=== PATIENT | male | born 1960 | race Caucasian/White ===

== ENCOUNTER → 2016-12-23 | Day surgery (SDC) | payer OTHER ==
--- NOTE | 2016-12-07 10:16 | PAT Medication Instructions ---
Service Date Dec 07, 2016. 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 Instructions For Your Scheduled Surgery Clopidogrel (Plavix), 75 MG PO QPM (hold 7 days prior to surgery per surgeon instructions- patient will check with family doctor that this is okay) Nitroglycerin [employer] 1 DOSE SL UD PRN for RN (if needed) - Hold the following medications 2 weeks prior to surgery: Fish Oil ([place]-3), 1 CAP PO BID - Hold the following medications 48 hours prior to surgery: Metformin Hcl (Glucophage), 1,000 MG PO BID - Hold the following medications the morning of surgery: Multivitamin (Multivitamin), 1 TAB PO QAM Lisinopril (Zestril), 40 MG PO QAM Glimepiride (Amaryl), 4 MG PO BID Cholecalciferol (Vitamin D3), 1 CAP PO QAM Diclofenac Sod (Voltaren), 50 MG PO TID PRN for RN (not told to stop by surgeon) Ibuprofen (Advil), 800 MG PO PRN (not told to stop by surgeon) - Take the following medications the morning of surgery with a sip of water: Atorvastatin (Lipitor), 40 MG PO QAM Aspirin (Aspirin Ec), 81 MG PO QAM - Take the following medications as scheduled the night before surgery: Omeprazole (Prilosec), 20 MG PO QPM Glimepiride (Amaryl), 4 MG PO BID Atenolol (Tenormin), 50 MG PO QPM If you have any questions please call us at [phone] or [phone] ( [place]) or [phone]
[2016-12-07 10:50] LABS: INR 1.1 (0.9-1.1); PARTIAL THROMBOPLASTIN RATIO 0.9; PROTHROMBIN TIME (PATIENT) 11.7 SECONDS (9.0-12.0)
[2016-12-07 11:02] LABS: BASO % 0.8 %; BASO ABS # 0.03 K/uL (0-0.2); COMPLETE YES; HEMATOCRIT 38.4 % (42-52); IG% 0.3 %; LYMPH % 26.8 %; LYMPH ABS # 1.03 K/uL (1.2-3.4); MEAN CELL VOLUME 86.5 fL (80-100); MEAN CORPUSCULAR HEMOGLOBIN 28.6 pg (25-34); MEAN CORPUSCULAR HGB CONC 33.1 g/dl (32-36); MEAN PLATELET VOLUME 10.8 fL (7.4-10.4); NEUT % 58.1 %; PLATELET COUNT 86 K/uL (130-400); PLT ESTIMATE DECREASED; RED BLOOD COUNT 4.44 M/uL (4.7-6.1); WHITE BLOOD COUNT 3.85 K/uL (4.8-10.8)
[2016-12-07 11:23] LABS: BUN/CREATININE RATIO 14.9 (10-20); CALCIUM 9.4 mg/dl (8.5-10.1); CREATININE 0.65 mg/dl (0.60-1.40); POTASSIUM 4.4 mmol/L (3.5-5.1)
--- NOTE | 2016-12-07 11:48 | DIAGNOSTIC IMAGING REPORT ---
CHEST 2 VIEWS ROUTINE CLINICAL HISTORY: Preoperative chest COMPARISON STUDY: No previous studies for comparison. FINDINGS: The heart is mildly enlarged. There is no failure. There is no focal pulmonary consolidation. There are no pleural effusions.[ IMPRESSION: Mild cardiomegaly. No acute findings. Electronically signed by: Severino Alexis M.D. 12/07/2016 11:46 AM Dictated Date/Time: 12/07/2016 11:46 AM
--- NOTE | 2016-12-22 19:38 | HISTORY & PHYSICAL EXAMINATION ---
DATE OF ADMISSION: 12/23/2016 HISTORY AND PHYSICAL ADMISSION NOTE CHIEF COMPLAINT: Severe calcific tendinitis of the right shoulder. 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 He did have an ultrasound and was told there were no rotator cuff tears, but does have continued pain and discomfort. After failing extensive conservative treatment, he has elected to undergo arthroscopy. PAST MEDICAL HISTORY: Significant for heart disease, non-insulin dependent diabetes, hyperlipidemia, hypertension and ulcers. PAST SURGICAL HISTORY: Significant for heart stents. ALLERGIES: IV DYE. MEDICATIONS: Include metformin 1000 mg twice a day, glimepiride 4 mg twice a day, lisinopril 40 mg daily, atorvastatin 40 mg daily, omeprazole 20 mg daily, Plavix 75 mg daily, atenolol 50 mg daily, baby aspirin 81 mg daily. FAMILY HISTORY: Noncontributory. SOCIAL HISTORY: The patient is , 2 children, 1-2 drinks a day and is moderately active. REVIEW OF SYSTEMS: The patient complains of right shoulder pain. All other pertinent review of systems are negative. PHYSICAL EXAMINATION: GENERAL: He is awake, alert and oriented x3. He is in no apparent distress. He is very pleasant. HEENT: Pupils are equal, round and reactive to light. Extraocular motion intact. Oral mucosa is pink and moist. VITAL SIGNS: Regular rate per radial pulse. LUNGS: Karol symmetrically bilaterally with no audible breath sounds. ABDOMEN: Soft, nontender, nondistended. MUSCULOSKELETAL: On physical examination of his right shoulder, he has decreased active range of motion mostly secondary to pain. He can forward flex about 80 degrees and abduct to 60 degrees. While lying supine he has very limited motion. There are no true signs of adhesive capsulitis and then points are soft and he has extreme pain throughout motion. He has significant tenderness to palpation over the subacromial space, over the AC joint and over the biceps tendon. IMAGING: X-[facility] from [facility] do show 2 areas of calcific tendinitis appeared to be in the area of the infra and supraspinatus, there is mild AC joint arthritis. Ultrasound report of the shoulder does show no signs of rotator cuff tears. It did show the areas of calcific tendonitis. IMPRESSION: Calcific tendonitis of the right shoulder with acromioclavicular joint arthritis and biceps tendonitis. PLAN: Will proceed with a right shoulder arthroscopy to include decompression, distal clavicle resection and biceps tenodesis. Postoperatively, he will be placed in an arm sling and discharged to home on oral pain medications. BERTIN
[~2016-12-23] VITALS: Ht 170.2 cm; Wt 87.0 kg
[~2016-12-23] MED LIST: ACETAMINOPHEN 500 MG TAB PO SCH; ASPI81TA28 PO; ATEN50TA8 PO; ATOR-24 PO; ATROPINE SULFATE 0.1 MG/ML 5ML SYR IV PRN; CEFAZOLIN 2000 MG/60 ML D5W 60 ML IV SCH; CHOL2000 PO; CLOP1TAB15 PO; DEXAMETHASONE SOD INJ 4 MG/ML VIAL ONE; EpHEDrine SULFATE 50MG/5ML SYR ONE; EpHEDrine SULFATE INJ 50 MG/ML AMP IV PRN; FAMOTIDINE 20 MG TAB PO SCH; FENTANYL CITRATE INJ 50 MCG/1 ML 2 ML VIAL IV PRN; FENTANYL CITRATE INJ 50 MCG/1 ML 2 ML VIAL ONE; GABAPENTIN 300 MG CAP PO SCH; GLIM4TAB PO; HYDROmorphone INJ 1 MG/ML SYR IV PRN; IBUP-1050 PO; LACTATED RINGER'S 1000ML 1,000 ML IV SCH; LACTATED RINGER'S 1000ML IV SCH; LARYING-O-JET KIT (LTA) EXT ONE; LIDOCAINE HCL 2% 2 ML VIAL (20MG/ML) ONE; LISI40TA PO; METF-384 PO; MIDAZOLAM HCL 1 MG/ML 2ML VIAL ONE; MULT-506 PO; NITROGLYCERIN SPRAY SL; OMEG10007 PO; ONDANSETRON INJ 2 MG/ML 2 ML VIAL IV PRN; ONDANSETRON INJ 2 MG/ML 2 ML VIAL ONE; OXYC-57 PO; OXYCODONE/ACETAMINOPHEN 5-325 TAB PO PRN; PRLSR20 PO; PROPOFOL IV EMULSION 10 MG/ML 20 ML VIAL IV ONE; ROCURONIUM BROMIDE 10 MG/ML 5 ML VIAL ONE; ROPIVACAINE 0.5% 5 MG/ML 30 ML VIAL ONE; SODIUM CHLORIDE 0.9% 1000ML 1,000 ML IV SCH; SUCCINYLCHOLINE CHLORIDE 20 MG/ML 10 ML VIAL IV ONE; VLT/50 PO
[2016-12-23 10:34] VITALS: BP 150/101; PULSE 75; TEMP 36.4; O2SAT 98; Ht 170.2 cm; Wt 87.0 kg
[2016-12-23 11:03] LABS: HEMATOCRIT 37.1 % (42-52); MEAN CELL VOLUME 84.7 fL (80-100); MEAN CORPUSCULAR HEMOGLOBIN 28.3 pg (25-34); RED BLOOD COUNT 4.38 M/uL (4.7-6.1); WHITE BLOOD COUNT 3.82 K/uL (4.8-10.8)
[2016-12-23 11:09] LABS: MEAN CORPUSCULAR HGB CONC 33.4 g/dl (32-36); MEAN PLATELET VOLUME 10.9 fL (7.4-10.4); PLATELET COUNT 78 K/uL (130-400)
--- NOTE | 2016-12-23 11:52 | History & Physical Bridge Note ---
H&P Re-Evaluation Bridge Note: I have examined the patient, reviewed the History & Physical and in the interval since the performance of the History & Physical I have noted the following changes of clinical significance: No changes noted
--- NOTE | 2016-12-23 14:45 | Discharge Instructions ---
Discharge Instructions Admission Reason for Admission: Right Shoulder Pain, Calcific Tendonitis Discharge Discharge Diagnosis / Problem: SAME ABOVE Discharge Goals Goal(s): Decrease discomfort, Improve function Activity Recommendations Activity Limitations: as noted below Lifting Limitations: until after follow-up appointment Exercise/Sports Limitations: until after follow-up appointment Shower/Bathe: tomorrow . Instructions / Follow-Up Instructions / Follow-Up MEDICATIONS: * Resume previous medications unless instructed otherwise by your surgeon. * Always take pain medication on a full stomach or with food to avoid upset stomach. * Do not drink alcohol or drive while taking narcotics. * Ibuprofen or Tylenol may be taken if narcotic not needed. SPECIAL CARE INSTRUCTIONS: __ None _X_ Keep extremity elevated and iced x 48 hours; apply ice 20-30 minutes 8-10 times/day. May remove at night. _X_ Sling (WEAR NEEDED FOR COMFORT) __24 hrs/day __ Remove at night __ Shoulder Immobilizer __ 24 hrs/day __ Remove at night _X_ Dressing __ Maintain until seen in office, may shower with plastic over site _X_ Remove dressings in 24-48 hours and then may shower _X_ Cover incisions with band-aids after showering _X_ Do not remove steri-strips (THEY MAY FALL OFF ON THEIR OWN) Call physician if chills or temperature rises above 102 degrees or pain unrelieved by prescribed pain medications at . . Current Hospital Diet Patient's current hospital diet: Discharge Diet Recommended Diet: Regular Diet Fluid Restriction: None Procedures Procedures Performed: Right Shoulder Arthroscopy, Extensive Debridement Distal Clavicle Resection, Open Biceps Tenodesis Pending Studies Studies pending at discharge: no Work Instructions Return To Work: after follow-up Lifting Limitations: NO LIFTING MORE THAN 5 POUNDS WITH RIGHT ARM Medical Emergencies . Who to Call and When: Medical Emergencies: If at any time you feel your situation is an emergency, please call 911 immediately. . Non-Emergent Contact Non-Emergency issues call your: Primary Care Provider Call Non-Emergent contact if: you have a fever, temperature is above 101.5 . "Provider Documentation" section prepared by Daniel Cantu. VTE Core Measure Inpt VTE Proph given/why not?: Treatment not indicated
--- NOTE | 2016-12-23 15:18 | Anesthesiology Progress Note ---
Anesthesia Post Op Note Date & Time Dec 23, 2016 at 15:17 Vital Signs Pain Intensity: 0 Vital Signs Past 12 Hours Date Time Temp Pulse Resp B/P Pulse Ox O2 Delivery O2 Flow Rate FiO2 12/23/16 15:05 81 16 159/95 99 Mask 10 12/23/16 14:55 83 20 153/97 98 Mask 10 12/23/16 14:45 36.0 80 16 144/92 99 Mask 10 12/23/16 10:34 36.4 75 20 150/101 98 Room Air Notes Mental Status: alert / awake / arousable, participated in evaluation Pt Amnestic to Procedure: Yes Nausea / Vomiting: adequately controlled Pain: adequately controlled Airway Patency, RR, SpO2: stable & adequate BP & HR: stable & adequate Hydration State: stable & adequate Anesthetic Complications: no major complications apparent
[2016-12-23 15:30] VITALS: BP 144/99; PULSE 85; TEMP 36.5; O2SAT 94
--- NOTE | 2016-12-23 15:50 | [facility] Post Operative Brief Note ---
Immediate Operative Summary Operative Date Dec 23, 2016. Pre-Operative Diagnosis Calcific tendonitis of the right shoulder with acromioclavicular joint arthritis and biceps tendonitis Post-Operative Diagnosis Calcific tendonitis of the right shoulder with acromioclavicular joint arthritis and biceps tendonitis Procedure(s) Performed Right Shoulder Arthroscopy, Extensive Debridement, Distal Clavicle Resection, Open Biceps Tenodesis, Achromoplasty Surgeon Dr. Otis Sawyer Blindstitch Lining Feller Surgeon(s) Daniel Cantu PA-C Estimated Blood Loss 10mL Findings as above Specimens None per surgeon Complication(s) None Disposition Recovery Room / PACU
[2016-12-23 16:00] VITALS: BP 147/91; PULSE 90; O2SAT 94
[2016-12-23 16:30] VITALS: BP 141/86; PULSE 90; TEMP 36.6; O2SAT 95
--- NOTE | 2016-12-23 16:32 | OPERATIVE REPORT ---
DATE OF OPERATION: 12/23/2016 PREOPERATIVE DIAGNOSES: Severe external impingement, acromioclavicular joint arthritis, calcific tendinitis, and biceps tendinopathy of the right shoulder. POSTOPERATIVE DIAGNOSES: Same. PROCEDURE: Right shoulder diagnostic arthroscopy with extensive debridement including removal of the calcific tendinitis, distal clavicle resection, acromioplasty, and open subpectoral biceps tenodesis. SURGEON: Dr. Otis Sawyer. REPAIRER ART OBJECTS: Nato Cantu PA-C, whose assistance was necessary for positioning the arm and helping with instrumentation. ANESTHESIA: General with a right interscalene nerve block. COMPLICATIONS: None. CONDITION: Stable to PACU. 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 He denies any shoulder pain until the incident. He is unable to get an MRI or CAT scan, so he got an ultrasound which was negative for cuff tear but did show calcific tendinitis. It also showed some external impingement and some biceps tendinopathy. After failing conservative treatment, he elected to undergo arthroscopy. DESCRIPTION OF PROCEDURE: On 12/23/2016, he arrived at [facility] for the above procedure. He was seen in the preoperative holding area and the operative extremity was identified and signed. He was given a preoperative antibiotic and a right interscalene nerve block. He was taken back to the operating room, laid on the table in supine position and put under general anesthesia. He was then put into the beach chair position. The right shoulder was prepped and draped in sterile fashion. Time-out was done and the patient and operative extremity was properly identified. A scope was introduced in the posterior portal. Diagnostic arthroscopy showed no cartilage damage to the humeral head or the glenoid. The biceps tendon was mostly intact and went through an enlarged biceps pacheco mechanism. The supraspinatus, infraspinatus, teres minor and subscapularis were all checked and intact. An anterior portal was made. A shaver was used to do a limited debridement of the intraarticular structures and the biceps tendon was arthroscopically tenotomized. The scope was then put into the subacromial space. A lateral portal was made. A shaver was used to do a complete subacromial and subdeltoid bursectomy. An ablator was used to tease the coracoacromial ligament off the undersurface of the acromion and a 5-0 concetta was used to complete an acromioplasty of a large [place] type 3 acromion. A shaver was used to remove any excess debris and the bursal side of the rotator cuff was examined and there was evidence of a large area of calcific tendonitis. An additional anterolateral portal was made and a shaver was used to complete an extensive debridement by excising the calcific tendinitis. Multiple pictures were taken. Care was taken to ensure all of the calcific tendonitis was removed. Final diagnostic arthroscopy showed no additional pathology. Attention was then turned to the distal clavicle. Through the anterior portal, a shaver and ablator were used to skeletonize the distal clavicle and a 5-0 concetta was then used to resect the distal 5 mm from the clavicle. Complete resection was checked under direct visualization. Arthroscopic instruments were removed from the shoulder. Attention was turned to an open biceps tenodesis. A small incision was made over the inferior border of the pec major. Dissection was taken down through the fascia and the long head of the biceps tendon was delivered out of the wound. The tendon was then whip stitched at the anticipated level of tenodesis and the remainder of the tendon was discarded. A 5 mm hole was drilled in the bicipital groove and the biceps tendon was tenodesed with an Arthrex biceps button that was passed through the posterior cortex in a tension slide technique to deliver the tendon into the 5 mm hole. This gave good fixation. The wound was then irrigated and closed with 3-0 Vicryl and running 3-0 Monocryl. Steri-strips were placed. Portal sites were closed with 3-0 nylon. He was then placed in a soft dressing and regular arm sling. He was then extubated, transferred to a litter and taken to the postanesthesia care unit in stable condition and he tolerated the procedure well. I attest to the content of the Intraoperative Record and any orders documented therein. Any exceptio ns are noted below.
== END | disposition home or self-care (01) ==
LOC: C.ACU 10:15
PROVIDERS: ATTEND Orthopaedic Surgery
DX: M75.41 Impingement syndrome of right shoulder (principal); M75.31 Calcific tendinitis of right shoulder; M75.21 Bicipital tendinitis, right shoulder; M19.019 Primary osteoarthritis, unspecified shoulder; E11.9 Type 2 diabetes mellitus without complications; E78.5 Hyperlipidemia, unspecified

== ENCOUNTER 2019-06-25 13:36 | Inpatient (IN) ==
[2019-06-25] MEDS ORDERED: GLUCOSE 10 TABS/TUBE PO PRN (15:16)
[2019-06-25] MEDS ORDERED: GLUCAGON FOR INJ 1 MG VIAL SQ PRN (15:16)
[2019-06-25] MEDS ORDERED: GLUCOSE 40% GEL 15 GM TUBE PO PRN (15:16)
[2019-06-25] MEDS ORDERED: CARBOHYDRATES FOR HYPOGLYCEMIA PO PRN (15:16)
[2019-06-25] MEDS ORDERED: DEXTROSE 50% 50 ML SYRINGE IV PRN (15:16)
[2019-06-25 15:17] LABS: Basophils # (auto) 0.05 K/uL (0-0.2); Basophils % (auto) 1.3 %; Eosinophils # (auto) 0.09 K/uL (0-0.5); Eosinophils % (auto) 2.3 %; Hematocrit (blood only) 32.7 % (42-52); Hemoglobin 10.7 g/dL (14.0-18.0); Immature Granulocytes # (auto) 0.01 K/uL (0.00-0.02); Immature Granulocytes % (auto) 0.3 %; Lymphocytes # (auto) 0.83 K/uL (1.2-3.4); Lymphocytes % (auto) 21.3 %; Mean Corpuscular Hgb Conc 32.7 g/dL (32-36); Mean Corpuscular Volume 83.6 fL (80-100); Mean Platelet Volume 10.4 fL (7.4-10.4); Monocytes # (auto) 0.67 K/uL (0.11-0.59); Monocytes % (auto) 17.2 %; Neutrophils # (auto) 2.25 K/uL (1.4-6.5); Neutrophils % (auto) 57.6 %; Platelet Count 103 K/uL (130-400); RDW Coefficient of Variation 15.6 % (11.5-14.5); RDW Standard Deviation 47.7 fL (36.4-46.3); Red Blood Count 3.91 M/uL (4.7-6.1)
[2019-06-25] MEDS: cefTRIAXone SODIUM 2,000 MG in DEXTROSE 5% 50 ML IV SCH (15:28)
[2019-06-25 15:34] LABS: Albumin Level 3.5 gm/dl (3.4-5.0); BUN Creatinine Ratio 19.4 (10-20); Calcium 8.8 mg/dl (8.5-10.1); Creatinine Clr Calc Pharmacy 54.4 ml/min; Est GFR (African American) 63.5; Est GFR (Non-African American) 54.8; Potassium 3.9 mmol/L (3.5-5.1)
[2019-06-25 15:36] LABS: Albumin Globulin Ratio 0.7 (0.9-2); Bilirubin,Total 0.9 mg/dl (0.2-1); Total Protein 8.5 gm/dl (6.4-8.2)
[2019-06-25 15:44] LABS: Platelet Estimate Decreased (Normal)
--- NOTE | 2019-06-25 16:25 | History & Physical Report ---
Date of Service June 25, 2019 Assessment & Plan (1) Alcoholic cirrhosis of liver with ascites: -Admit to [facility] with telemetry -Patient sent from the GI office for evaluation of abdominal pain and nausea/vomiting; underwent paracentesis on 05/28 that was equivocal for infection -Concern for possible SBP -Patient currently hemodynamic Oli stable, afebrile, no leukocytosis -Patient declining repeat paracentesis at this time -will start ceftriaxone 2 g IV daily -Repeat ultrasound -Continue home dose of spironolactone; furosemide recently discontinued by PCP for orthostasis -continue to monitor orthostatic BPs, consider resumption of furosemide and down titration of JUNE inhibitor -GI consult, case discussed with Denisse Mena PA-C (2) CAD (coronary artery disease): -Appears stable, no reports of chest pain -Continue aspirin, statin, beta-nj, JUNE inhibitor (3) DM type 2 (diabetes mellitus, type 2): -Hgb A1c 8.5 05/2018 -Hold outpatient Trulicity and utilize NovoLog per protocol while hospitalized (4) Esophageal varices: -EGD 12/2018-grade 2 esophageal varices, portal gastropathy -No signs of bleeding (5) Thrombocytopenia: -Platelets 103K -Likely due to underlying liver disease -No signs of bleeding (6) Hypertension: -BP currently controlled, continue home doses of carvedilol and lisinopril -As above, consider resumption of furosemide and down titration of lisinopril (7) CKD (chronic kidney disease), stage III: - baseline creat runs in the low to mid ones - creat noted to be 1.3 today - continue to monitor, avoid nephrotoxic agents when able (8) BPH (benign prostatic hyperplasia): -Continue finasteride and tamsulosin (9) GERD (gastroesophageal reflux disease): -Continue PPI (10) DVT prophylaxis: -SCDs due to thrombocytopenia History of Present Illness Chief Complaint: Abdominal pain, nausea/vomiting Primary Care Provider: Km Del Rosario MD 59-year-old male who presents as a direct admission from the GI office for evaluation of abdominal pain and nausea/vomiting. Patient was diagnosed with alcoholic cirrhosis of liver with ascites about 6 months ago. Patient underwent paracentesis on 05/28 that was equivocal for infection. Over the past 2 weeks, patient reports increased dizziness and lightheadedness. Home health nursing has been following with him and they report a positive orthostatic blood pres sures. Patient's PCP then discontinued the furosemide. Patient reports over the past 1 week, he has been having increasing abdominal pain. Today, he developed nausea with one episode of vomiting. He describes emesis as bilious in nature. No hematemesis or coffee-ground emesis. Patient denies diarrhea, bright red bleeding per rectum, dark tarry stools. He denies chest pain or shortness of breath. No syncopal events. Denies fevers and chills. No urinary symptoms. He was seen in the GI clinic today and given the abdominal pain and a recent paracentesis concern for possible infection, patient was referred for direct admission for treatment of possible SBP. At the time my exam, patient is sitting on the edge the bed in no acute distress. Allergies Allergy/AdvReac Type Severity Reaction Status Date / Time Iodinated Contrast- Oral and Allergy Mild rash? Verified 01/14/19 07:58 IV Dye Home Medications Home Medications Medication Instructions Recorded Confirmed Type aspirin 81 mg PO QAM 01/03/19 06/25/19 History atorvastatin 40 mg PO PM 01/03/19 06/25/19 History finasteride 5 mg PO DAILY 01/03/19 06/25/19 History gabapentin 300 mg PO TID 01/03/19 06/25/19 History lisinopril 40 mg PO QAM 01/03/19 06/25/19 History nitroglycerin 1 dose SUBLINGUAL UD PRN 01/03/19 06/25/19 History omega 6-hws-tmd-fish oil [Fish Oil] 1 cap PO BID 01/03/19 06/25/19 History tamsulosin 0.4 mg PO DAILY 01/03/19 06/25/19 History albuterol sulfate [ProAir HFA] 2 puff INHALATION DAILY PRN 05/28/19 06/25/19 History carvedilol 6.25 mg PO BID 05/28/19 06/25/19 History dulaglutide [Trulicity] See Rx Instructions .ROUTE .COMPLEX 05/28/19 06/25/19 History matmayvdemfo-smzreywl-yvyliq 1 tab PO DAILY 05/28/19 06/25/19 History [Multivitamin 50 Plus] spironolactone 100 mg PO DAILY 05/28/19 06/25/19 History cholecalciferol (vitamin D3) 2,000 unit PO DAILY 06/25/19 06/25/19 History esomeprazole magnesium 20 mg PO DAILY 06/25/19 06/25/19 History Past Med/Surg History Medical History CKD (chronic kidney disease), stage III (Chronic) BPH (benign prostatic hyperplasia) (Chronic) GERD (gastroesophageal reflux disease) (Chronic) 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) Hypertension (Chronic) CAD (coronary artery disease) (Chronic) 12/1999-PCI to circumflex 03/2001-RCA stent 06/2001-LAD stent x 2 Dyslipidemia (Chronic) DM type 2 (diabetes mellitus, type 2) (Chronic) Surgical History History of esophagogastroduodenoscopy (EGD) (Chronic) 12/2018-nonbleeding grade 2 esophageal varices, portal gastropathy History of tonsillectomy and adenoidectomy (Chronic) Family History Father Family history of diabetes mellitus Sister Family history of diabetes mellitus Mother Family history of esophageal cancer Social History Preferred Language: Upper Sorbian Communication Ability: Effective Plate Cutter Required: No Beliefs That Will Affect Care: None Current Living Situation: Spouse Other Information That Helps Us Care for You: No Feels Safe at Home: Yes Safety Concerns: Feels Safe At This Time Smoking Status: Former smoker Tobacco Type: cigarettes Second Hand Exposure: Yes (dad smoked) Hx Alcohol Use: No (Former heavy EtOH use, quit 10/2018) Hx Substance Use: No Review of Systems Review of Systems: ROS per HPI, all other systems reviewed and negative Physical Exam Constitutional: WD/WN, vitals as above Eyes: PERRL, conjunctivae normal, anicteric sclerae ENMT: external ear and nose normal, oropharynx normal Respiratory: normal respiratory effort, lungs clear to auscultation Cardiovascular: Rate/Rhythm: regular rate and regular rhythm Vessels: normal peripheral pulses Extremities: no edema Gastrointestinal (Abdomen): Inspection/Auscultation: + abdomen distended and normal bowel sounds Percussion/Palpation: + abdomen tender (Mild, generaliz ed) and abdomen soft; no hepatosplenomegaly Musculoskeletal: no cyanosis or clubbing, extremities motor strength 5/5 Skin: no rashes, warm and dry Neurologic: PERRL, EOMI, accommodation nl, no face palsy, no dysarthria Psychiatric: A+Ox3, euthymic affect Results & Data Vital Signs (Past 12 Hours) Vital Signs Temp Pulse Resp BP Pulse Ox 06/25/19 15:00 36.5 C 72 18 128/77 98 06/25/19 14:25 36.4 C L 79 18 121/73 100 Laboratory Results Short CBC 06/25/19 Range/Units 15:02 WBC 3.90 L (4.8-10.8) K/uL Hgb 10.7 L (14.0-18.0) g/dL Hct 32.7 L (42-52) % Plt Count 103 L (130-400) K/uL BMP 06/25/19 15:02 Sodium 140 Potassium 3.9 Chloride 107 Carbon Dioxide 25 BUN 27 H Creatinine 1.38 Glucose 119 H Calcium 8.8 Liver Function 06/25/19 Range/Units 15:02 Total Bilirubin 0.9 (0.2-1) mg/dl AST 35 (15-37) U/L ALT 18 (12-78) U/L Alkaline Phosphatase 129 H (45-117) U/L Albumin 3.5 (3.4-5.0) gm/dl Code Status & VTE Plan VTE Prophylaxis Plan VTE Prophylaxis will be ordered: Yes Supervising Physician Co-Signing Physician Notes I saw this patient with the Nurse Practitioner, I participated in the history, physical, review of systems, and physical exam. I reviewed the medications with the patient and the Nurse Practitioner and helped reconcile the medications. I helped take a detailed family and social history as well. I formulated the assessment and plan personally with the Nurse Practitioner went over it with the patient. ROS-No Headache, No Visual Changes, No Nausea, No Vomiting, No Fever, No Chills, No Neck Pain or Stiffness, No Chest Pain, No Palpitations, No SOB, No IGNACIO, No Cough, No Sputum, No Wheezing, No Abdominal Pain, No Diarrhea, No Hematemesis, No Hemoptysis, No Unexpected Weight Loss, No Flank pain, No Melena, No Hematochezia, No Frequency, No Urgency, No Burning, No Hematuria, No Rashes, No Diaphoresis. Appetite is Normal Physical Exam Gen-AAO x 3, NAD, Afebrile Head-NCAT, EOMI, PERRLA, Anicteric Sclera, No Posterior Pharyngeal Erythema Neck-Supple, No JVD, No Thyromegaly, No Masses, No LAD, No Bruits Lungs-Clear to Auscultation Bilaterally, No Rales, No Rhonchi, No Wheezing, No Crepitus Chest-No S4, +S1, +S2, No S3, No Murmurs, No Rubs, No Gallops, No Ectopy Abdomen-Soft, Bowel Sounds Present, Non Tender, Non Distended, No Hepatomegaly, No Splenomegaly, No Palpable Masses, No Rebound, No Rigidity, No Guarding Musculoskeletal-Full Range of Motion Bilaterally, No CVAT Extremities-No Cyanosis, No Clubbing, No Edema Nuero-Cranial Nerves II-XII grossly intact, Motor WNL, DTRs WNL, Strength WNL, Non Focal Psych-Normal Mood
[2019-06-25] MEDS: INSULIN ASPART 100 UNITS/ML 3 ML PEN SC SCH ×2 (17:07→21:09)
[2019-06-25] MEDS: ATORVASTATIN 40 MG TAB PO SCH (21:07)
[2019-06-25] MEDS: CARVEDILOL 6.25 MG TAB PO SCH (21:07)
[2019-06-25] MEDS: GABAPENTIN 300 MG CAP PO SCH (21:08)
[2019-06-25] MEDS: OMEGA-3 (PURIFIED FISH OIL) 1 GM CAP PO SCH (21:10)
[2019-06-25] MEDS ORDERED: ACETAMINOPHEN 325 MG TAB PO PRN (21:11)
--- NOTE | 2019-06-25 22:20 | Ultrasound Report ---
US abdomen limited HISTORY: Hepatic cirrhosis cirrhosis. COMPARISON: None. FINDINGS: Pancreas: Poorly seen due to overlying bowel content. Liver: Heterogeneous internal architecture. Trace. Ascites. Findings consistent with hepatic cirrhotic change. Gallbladder: No gallbladder wall thickening. No gallstones. CBD: 3 mm Right kidney: Moderate right renal hydronephrosis. IMPRESSION: 1. Hepatic cirrhosis. 2. Minimal perihepatic ascites. 3. Moderate right renal hydronephrosis. The above report was generated using voice recognition software. It may contain grammatical, syntax or spelling errors. Electronically signed by: Que Melgar M.D. 06/25/2019 10:19 PM
[2019-06-26 00:04] LABS: Appearance Urine Clear (Clear); Bacteria Urine Automated Negative (Negative); Bilirubin Urine Negative (Negative); Blood Urine Negative (Negative); Cast Urine Automated 0 /lpf (0-5); Color Urine Yellow; Epithelial Cell Urine Auto 0-5 /lpf (0-5); Glucose Urine UA Negative (Negative); Ketones Urine Negative (Negative); Leukocyte Esterase Urine Trace (Negative); Nitrite Urine Negative (Negative); Protein Urine Negative (Negative); RBC Urine Automated 0-4 /hpf (0-4); Specific Gravity Urine 1.012 (1.000-1.030); Urobilinogen Urine Negative (Negative); pH Urine 5.5 (4.5-7.5)
[2019-06-26 07:33] LABS: Hematocrit (blood only) 28.9 % (42-52); Hemoglobin 9.3 g/dL (14.0-18.0); Mean Corpuscular Hgb Conc 32.2 g/dL (32-36); Mean Corpuscular Volume 84.8 fL (80-100); RDW Coefficient of Variation 15.5 % (11.5-14.5); RDW Standard Deviation 48.1 fL (36.4-46.3); Red Blood Count 3.41 M/uL (4.7-6.1); White Blood Count 3.02 K/uL (4.8-10.8)
[2019-06-26 07:37] LABS: Mean Platelet Volume 9.9 fL (7.4-10.4); Platelet Count 65 K/uL (130-400)
[2019-06-26 07:42] LABS: INR 1.2 (0.9-1.1); Prothrombin Time 12.4 Seconds (9.0-12.0)
[2019-06-26 08:03] LABS: Albumin Level 2.7 gm/dl (3.4-5.0); BUN Creatinine Ratio 18.6 (10-20); Calcium 8.5 mg/dl (8.5-10.1); Creatinine Clr Calc Pharmacy 54.4 ml/min; Est GFR (African American) 63.5; Est GFR (Non-African American) 54.8; Magnesium 1.9 mg/dl (1.8-2.4); Potassium 4.1 mmol/L (3.5-5.1)
[2019-06-26 08:07] LABS: Albumin Globulin Ratio 0.7 (0.9-2); Bilirubin,Total 0.6 mg/dl (0.2-1); Globulin 4.1 gm/dl (2.5-4.0); Total Protein 6.8 gm/dl (6.4-8.2)
[2019-06-26] MEDS: SPIRONOLACTONE 100 MG TAB PO SCH (08:59)
[2019-06-26] MEDS: GABAPENTIN 300 MG CAP PO SCH ×3 (08:59→20:32)
[2019-06-26] MEDS: TAMSULOSIN HCL 0.4 MG CAP PO SCH (08:59)
[2019-06-26] MEDS: CARVEDILOL 6.25 MG TAB PO SCH ×2 (08:59→20:32)
[2019-06-26] MEDS: CEROVITE ADV FORMULA TAB PO SCH (08:59)
[2019-06-26] MEDS: ASPIRIN 81 MG ECTAB PO SCH (08:59)
[2019-06-26] MEDS: OMEGA-3 (PURIFIED FISH OIL) 1 GM CAP PO SCH ×2 (08:59→20:31)
[2019-06-26] MEDS: PANTOprazole 40 MG TAB PO SCH (08:59)
[2019-06-26] MEDS: FINASTERIDE 5 MG TAB PO SCH (08:59)
[2019-06-26] MEDS ORDERED: LISINOPRIL 40 MG TAB PO SCH (09:00)
[2019-06-26] MEDS: INSULIN ASPART 100 UNITS/ML 3 ML PEN SC SCH ×4 (09:01→20:33)
[2019-06-26] MEDS: cefTRIAXone SODIUM 2,000 MG in DEXTROSE 5% 50 ML IV SCH (09:05)
[2019-06-26] MEDS: CHOLECALCIFEROL 1,000 UNITS TAB PO SCH (10:17)
--- NOTE | 2019-06-26 11:20 | Gastrointestinal Consultation ---
Date of Consultation June 26, 2019 Assessment & Plan (1) Alcoholic cirrhosis of liver with ascites: Patient admitted for concern of SBP - afebrile with a normal WBC. Ultrasound shows minimal fluid - patient refuses diagnostic paracentesis. On antibiotics. Doubt SBP, but would continue a 7-10 day course of antibiotics as OP. LFTs normal today. Feeling better today, but continues with mild abdominal pain. Currently on 40mg pantoprazole - on once daily 20mg esomeprazole at home. Would continue higher dosage of PPI vs BID dosing of the esomeprazole. Just had an EGD in December. Would not repeat at this time. (2) Abdominal pain: as above (3) N&V (nausea and vomiting): as above Supervising Physician Co-Signing Physician Notes I have seen and examined the patient with Liz Mena PA-C whose note reflects our findings and plan. History of Present Illness Reason for Consultation: SBP Requesting Physician: Alejandro Gloria MD Attending Physician: Alejandro Gloria MD History of Present Illness 59 year old male with a hx of CKD-III, BPH, HTN, CAD, Dyslipidemia, DM, and ETOH cirrhosis, admitted from our clinic yesterday with n/v, abdominal pain, with concern for possible SBP. He tells me that he began with symptoms Monday night. Reports a sharp, low-epigastric abdominal pain that has been fairly constant, without aggravating or alleviating factors. Reports nausea with multiple bouts of emesis starting about that same time - last emesis was yesterday morning. Denies any coffee ground emesis or hematemesis. Taking esomeprazole 20mg once daily at home. Denies any breakthrough heartburn. Bowels alternate from formed to loose, passing about 3 times daily. Bowel pattern has not changed. No BRB or melena. He states he quit drinking completely around [place] time. Prior to that he was drinking beer - about 7-8 daily during the week and 13+on weekends. Hx for 20+years. He denies any recent NSAID use. EGD and colonoscopy were performed just this past December, and he was found to have grade II esophageal varices, portal hypertensive gastropathy and mild GAVE. Colonoscopy showed diverticulosis, internal hemorrhoids, rectal varices, and 7 polyps. He is feeling better today, but continues with mild lower epigastric pain. No further n/v. Tolerating diet. Had eggs/toast this morning. Labs showed no leukocytosis but he did initially have a mildly elevated ALP. (otherwise normal LFTs.) ALP has normalized today. RUQ ultrasound was consistent with cirrhosis, but no CBD dilation and minimal ascites. Moderate right hydronephrosis was noted. Patient refused diagnostic paracentesis. Looking at his prior one from 05/28/19 - total WBC count was 579, but PMN at that time was low, at 6.9. He has been started on antibiotics due to concern that he has progressed to SBP with his abdominal pain. He denies any fever or chills. Allergies Allergy/AdvReac Type Severity Reaction Status Date / Time Iodinated Contrast- Oral and Allergy Mild rash? Verified 01/14/19 07:58 IV Dye Home Medications Home Medications Medication Instructions Recorded Confirmed Type aspirin 81 mg PO QAM 01/03/19 06/25/19 History atorvastatin 40 mg PO PM 01/03/19 06/25/19 History finasteride 5 mg PO DAILY 01/03/19 06/25/19 History gabapentin 300 mg PO TID 01/03/19 06/25/19 History lisinopril 40 mg PO QAM 01/03/19 06/25/19 History nitroglycerin 1 dose SUBLINGUAL UD PRN 01/03/19 06/25/19 History omega 1-grc-tqw-fish oil [Fish Oil] 1 cap PO BID 01/03/19 06/25/19 History tamsulosin 0.4 mg PO DAILY 01/03/19 06/25/19 History albuterol sulfate [ProAir HFA] 2 puff INHALATION DAILY PRN 05/28/19 06/25/19 History carvedilol 6.25 mg PO BID 05/28/19 06/25/19 History dulaglutide [Trulicity] See Rx Instructions .ROUTE .COMPLEX 05/28/19 06/25/19 History dvawqktrlikh-nuawdzqu-jjkngp 1 tab PO DAILY 05/28/19 06/25/19 History [Multivitamin 50 Plus] spironolactone 100 mg PO DAILY 05/28/19 06/25/19 History cholecalciferol (vitamin D3) 2,000 unit PO DAILY 06/25/19 06/25/19 History esomeprazole magnesium 20 mg PO DAILY 06/25/19 06/25/19 History Patient History Medical History CKD (chronic kidney disease), stage III (Chronic) BPH (benign prostatic hyperplasia) (Chronic) GERD (gastroesophageal reflux disease) (Chronic) 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) Hypertension (Chronic) CAD (coronary artery disease) (Chronic) 12/1999-PCI to circumflex 03/2001-RCA stent 06/2001-LAD stent x 2 Dyslipidemia (Chronic) DM type 2 (diabetes mellitus, type 2) (Chronic) Surgical History History of esophagogastroduodenoscopy (EGD) (Chronic) 12/2018-nonbleeding grade 2 esophageal varices, portal gastropathy History of tonsillectomy and adenoidectomy (Chronic) Family History Father Family history of diabetes mellitus Sister Family history of diabetes mellitus Mother Family history of esophageal cancer Social History Preferred Language: Slovenian Communication Ability: Effective Pest Control Applicator Required: No Beliefs That Will Affect Care: None Current Living Situation: Spouse Other Information That Helps Us Care for You: No Feels Safe at Home: Yes Safety Concerns: Feels Safe At This Time Smoking Status: Former smoker Tobacco Type: cigarettes Second Hand Exposure: Yes (dad smoked) Hx Alcohol Use: No (Former heavy EtOH use, quit 10/2018) Hx Substance Use: No Review of Systems Constitutional: no fever, no chills, no fatigue and no weight loss Eyes: no eye pain and no worsening vision Ear, Nose, Mouth, Throat: no ear pain, no hearing loss, no nasal congestion and no sore throat Respiratory: no cough, no chest congestion and no wheezing Cardiovascular: no chest pain and no dyspnea Gastrointestinal: as per Subjective / HPI Musculoskeletal: no joint pain Integumentary: no rash and no pruritus Neurologic: no tingling, no numbness and no dizziness Psychiatric: no suicidal ideation and no confusion Endocrine: no cold intolerance and no heat intolerance Hematologic / Lymphatic: no easy bleeding and no easy bruising Allergy / Immunological: no problem reported Physical Exam Constitutional: WD/WN, vitals as above healthy appearing; no acute distress Eyes: + anicteric sclerae ENMT: external ear and nose normal, oropharynx normal Neck: normal visual inspection Respiratory: normal respiratory effort, lungs clear to auscultation Cardiovascular: Rate/Rhythm: regular rate and regular rhythm Heart Sounds: no murmur Gastrointestinal (Abdomen): Inspection/Auscultation: normal bowel sounds; abdomen not distended Percussion/Palpation: + abdomen tender (mild periumbilical tenderness to palpation) and abdomen soft; no hepatosplenomegaly Musculoskeletal: Head/Neck/Chest: normocephalic and head atraumatic Skin: no rashes, warm and dry Neurologic: moves all extremities; no focal motor deficits Psychiatric: Orientation: alert and oriented x 3 Results & Data Vital Signs (Past 12 Hours) Vital Signs Temp Pulse Pulse Pulse Resp BP Pulse Ox 06/26/19 07:09 36.5 C 79 20 115/77 95 06/26/19 03:28 36.5 C 73 18 107/69 97 06/26/19 00:01 79 Laboratory Results - last 24 hr 06/25/19 06/25/19 06/25/19 15:02 15:02 15:44 WBC 3.90 L RBC 3.91 L Hgb 10.7 L Hct 32.7 L MCV 83.6 MCH 27.4 MCHC 32.7 RDW Std Deviation 47.7 H RDW Coeff of Sudhakar 15.6 H Plt Count 103 L MPV 10.4 Immature Gran % (Auto) 0.3 Neut % (Auto) 57.6 Lymph % (Auto) 21.3 [place] % (Auto) 17.2 Eos % (Auto) 2.3 Baso % (Auto) 1.3 Immature Gran # (Auto) 0.01 Neut # (Auto) 2.25 Lymph # (Auto) 0.83 L [place] # (Auto) 0.67 H Eos # (Auto) 0.09 Baso # (Auto) 0.05 Platelet Estimate Decreased L PT INR Sodium 140 Potassium 3.9 Chloride 107 Carbon Dioxide 25 Anion Gap 8.0 BUN 27 H Creatinine 1.38 Est Cr Clr Drug Dosing 54.4 Est GFR ( Amer) 63.5 Est GFR (Non-Af Amer) 54.8 BUN/Creatinine Ratio 19.4 Glucose 119 H POC Glucose 107 H Calcium 8.8 Magnesium Total Bilirubin 0.9 AST 35 ALT 18 Alkaline Phosphatase 129 H Total Protein 8.5 H Albumin 3.5 Globulin 5.0 H Albumin/Globulin Ratio 0.7 L Urine Color Urine Appearance Urine pH Ur Specific [place] Urine Protein Urine Glucose (UA) Urine Ketones Urine Blood Urine Nitrite Urine Bilirubin Urine Urobilinogen Ur Leukocyte Esterase Urine WBC (Auto) Urine RBC (Auto) U Hyaline Cast (Auto) U Epithel Cells (Auto) Urine Bacteria (Auto) 06/25/19 06/25/19 06/26/19 19:58 23:35 07:12 WBC 3.02 L RBC 3.41 L Hgb 9.3 L Hct 28.9 L MCV 84.8 MCH 27.3 MCHC 32.2 RDW Std Deviation 48.1 H RDW Coeff of Sudhakar 15.5 H Plt Count 65 L MPV 9.9 Immature Gran % (Auto) Neut % (Auto) Lymph % (Auto) [place] % (Auto) Eos % (Auto) Baso % (Auto) Immature Gran # (Auto) Neut # (Auto) Lymph # (Auto) [place] # (Auto) Eos # (Auto) Baso # (Auto) Platelet Estimate PT INR Sodium Potassium Chloride Carbon Dioxide Anion Gap BUN Creatinine Est Cr Clr Drug Dosing Est GFR ( Amer) Est GFR (Non-Af Amer) BUN/Creatinine Ratio Glucose POC Glucose 154 H Calcium Magnesium Total Bilirubin AST ALT Alkaline Phosphatase Total Protein Albumin Globulin Albumin/Globulin Ratio Urine Color Yellow Urine Appearance Clear Urine pH 5.5 Ur Specific [place] 1.012 Urine Protein Negative Urine Glucose (UA) Negative Urine Ketones Negative Urine Blood Negative Urine Nitrite Negative Urine Bilirubin Negative Urine Urobilinogen Negative Ur Leukocyte Esterase Trace H Urine WBC (Auto) 1-5 Urine RBC (Auto) 0-4 U Hyaline Cast (Auto) 0 U Epithel Cells (Auto) 0-5 Urine Bacteria (Auto) Negative 06/26/19 06/26/19 06/26/19 07:12 07:12 07:18 WBC RBC Hgb Hct MCV MCH MCHC RDW Std Deviation RDW Coeff of Sudhakar Plt Count MPV Immature Gran % (Auto) Neut % (Auto) Lymph % (Auto) [place] % (Auto) Eos % (Auto) Baso % (Auto) Immature Gran # (Auto) Neut # (Auto) Lymph # (Auto) [place] # (Auto) Eos # (Auto) Baso # (Auto) Platelet Estimate PT 12.4 H INR 1.2 H Sodium 142 Potassium 4.1 Chloride 110 H Carbon Dioxide 26 Anion Gap 6.0 BUN 26 H Creatinine 1.38 Est Cr Clr Drug Dosing 54.4 Est GFR ( Amer) 63.5 Est GFR (Non-Af Amer) 54.8 BUN/Creatinine Ratio 18.6 Glucose 123 H POC Glucose 114 H Calcium 8.5 Magnesium 1.9 Total Bilirubin 0.6 AST 32 ALT 15 Alkaline Phosphatase 105 Total Protein 6.8 Albumin 2.7 L Globulin 4.1 H Albumin/Globulin Ratio 0.7 L Urine Color Urine Appearance Urine pH Ur Specific [place] Urine Protein Urine Glucose (UA) Urine Ketones Urine Blood Urine Nitrite Urine Bilirubin Urine Urobilinogen Ur Leukocyte Esterase Urine WBC (Auto) Urine RBC (Auto) U Hyaline Cast (Auto) U Epithel Cells (Auto) Urine Bacteria (Auto)
--- NOTE | 2019-06-26 20:11 | Hospitalist Progress Note ---
Date of Service June 26, 2019 Assessment & Plan (1) Alcoholic cirrhosis of liver with ascites: -Admit to [facility] with telemetry -Patient sent from the GI office for evaluation of abdominal pain and nausea/vomiting; underwent paracentesis on 05/28 that was equivocal for infection Afebrile, no leukocytosis Abdominal ultrasound: Minimal ascites Continue ceftriaxone IV for now, plan to transition to oral antibiotics to complete 7-day course for SBP coverage on discharge GI consulted Pantoprazole 20 mg p.o. started Improving overall (2) CAD (coronary artery disease): -Appears stable, no reports of chest pain -Continue aspirin, statin, beta-nj, JUNE inhibitor (3) DM type 2 (diabetes mellitus, type 2): -Hgb A1c 8.5 05/2018 -Hold outpatient Trulicity and utilize NovoLog per protocol while hospitalized (4) Esophageal varices: -EGD 12/2018-grade 2 esophageal varices, portal gastropathy -No signs of bleeding (5) Thrombocytopenia: -Platelets 55,000 -Likely due to underlying liver disease No bleeding (6) Hypertension: -BP currently controlled, continue home doses of carvedilol and lisinopril (7) CKD (chronic kidney disease), stage III: - baseline creat runs in the low to mid ones Creatinine 1.3 (8) BPH (benign prostatic hyperplasia): -Continue finasteride and tamsulosin (9) GERD (gastroesophageal reflux disease): -Continue PPI (10) DVT prophylaxis: -SCDs due to thrombocytopenia Subjective Follow-up for possible SBP Seen resting in bed, comfortable, in good spirits Abdominal pain, vomiting, nausea, fevers or chills No chest pain, shortness of breath, palpitations, dizziness No other symptoms Review of Systems Review of Systems: All systems reviewed & are unremarkable except as noted in HPI & below Physical Exam Physical Exam: General- oriented x 3, not in distress, speaks in sentences with no effort or accessory muscle use Head- atraumatic Eyes- PERRL, EOMI, anicteric ENT- oropharynx clear Neck- supple, no JVD, no adenopathy, no thyromegaly; carotids +2/2, no bruits appreciated Lungs- clear to auscultation bilaterally, no rales/wheezes Heart- normal rate, regular rhythm; no murmur, no gallop, no rub appreciated Abdomen- normal bowel sounds, nondistended, soft, nontender, no masses or hepatosplenomegaly Extremities- no pretibial edema, no calf tenderness; peripheral pulses intact Neuro- alert, oriented x 3; CN 2-12 grossly intact; motor 5/5 bilaterally;sensation 100% on all extremities; no other gross focal neurologic deficits Skin- warm & dry Results & Data Vital Signs (Past 12 Hours) Vital Signs Temp Pulse Pulse Resp BP BP Pulse Ox 06/26/19 19:33 93/60 L 06/26/19 19:21 36.5 C 82 18 111/53 L 113/72 98 06/26/19 15:25 75 06/26/19 15:13 36.6 C 77 18 102/64 95 06/26/19 11:20 36.5 C 78 20 128/85 98 Laboratory Results Laboratory Results - last 24 hr 06/25/19 06/25/19 06/26/19 19:58 23:35 07:12 WBC 3.02 L RBC 3.41 L Hgb 9.3 L Hct 28.9 L MCV 84.8 MCH 27.3 MCHC 32.2 RDW Std Deviation 48.1 H RDW Coeff of Sudhakar 15.5 H Plt Count 65 L MPV 9.9 PT INR Sodium Potassium Chloride Carbon Dioxide Anion Gap BUN Creatinine Est Cr Clr Drug Dosing Est GFR ( Amer) Est GFR (Non-Af Amer) BUN/Creatinine Ratio Glucose POC Glucose 154 H Calcium Magnesium Total Bilirubin AST ALT Alkaline Phosphatase Total Protein Albumin Globulin Albumin/Globulin Ratio Urine Color Yellow Urine Appearance Clear Urine pH 5.5 Ur Specific [place] 1.012 Urine Protein Negative Urine Glucose (UA) Negative Urine Ketones Negative Urine Blood Negative Urine Nitrite Negative Urine Bilirubin Negative Urine Urobilinogen Negative Ur Leukocyte Esterase Trace H Urine WBC (Auto) 1-5 Urine RBC (Auto) 0-4 U Hyaline Cast (Auto) 0 U Epithel Cells (Auto) 0-5 Urine Bacteria (Auto) Negative 06/26/19 06/26/19 06/26/19 07:12 07:12 07:18 WBC RBC Hgb Hct MCV MCH MCHC RDW Std Deviation RDW Coeff of Sudhakar Plt Count MPV PT 12.4 H INR 1.2 H Sodium 142 Potassium 4.1 Chloride 110 H Carbon Dioxide 26 Anion Gap 6.0 BUN 26 H Creatinine 1.38 Est Cr Clr Drug Dosing 54.4 Est GFR ( Amer) 63.5 Est GFR (Non-Af Amer) 54.8 BUN/Creatinine Ratio 18.6 Glucose 123 H POC Glucose 114 H Calcium 8.5 Magnesium 1.9 Total Bilirubin 0.6 AST 32 ALT 15 Alkaline Phosphatase 105 Total Protein 6.8 Albumin 2.7 L Globulin 4.1 H Albumin/Globulin Ratio 0.7 L Urine Color Urine Appearance Urine pH Ur Specific [place] Urine Protein Urine Glucose (UA) Urine Ketones Urine Blood Urine Nitrite Urine Bilirubin Urine Urobilinogen Ur Leukocyte Esterase Urine WBC (Auto) Urine RBC (Auto) U Hyaline Cast (Auto) U Epithel Cells (Auto) Urine Bacteria (Auto) 06/26/19 06/26/19 06/26/19 11:28 17:02 19:57 WBC RBC Hgb Hct MCV MCH MCHC RDW Std Deviation RDW Coeff of Sudhakar Plt Count MPV PT INR Sodium Potassium Chloride Carbon Dioxide Anion Gap BUN Creatinine Est Cr Clr Drug Dosing Est GFR ( Amer) Est GFR (Non-Af Amer) BUN/Creatinine Ratio Glucose POC Glucose 181 H 155 H 213 H Calcium Magnesium Total Bilirubin AST ALT Alkaline Phosphatase Total Protein Albumin Globulin Albumin/Globulin Ratio Urine Color Urine Appearance Urine pH Ur Specific [place] Urine Protein Urine Glucose (UA) Urine Ketones Urine Blood Urine Nitrite Urine Bilirubin Urine Urobilinogen Ur Leukocyte Esterase Urine WBC (Auto) Urine RBC (Auto) U Hyaline Cast (Auto) U Epithel Cells (Auto) Urine Bacteria (Auto)
[2019-06-26] MEDS: ATORVASTATIN 40 MG TAB PO SCH (20:32)
[2019-06-27] MEDS: FINASTERIDE 5 MG TAB PO SCH (08:43)
[2019-06-27] MEDS: ASPIRIN 81 MG ECTAB PO SCH (08:43)
[2019-06-27] MEDS: SPIRONOLACTONE 100 MG TAB PO SCH (08:43)
[2019-06-27] MEDS: CHOLECALCIFEROL 1,000 UNITS TAB PO SCH (08:43)
[2019-06-27] MEDS: TAMSULOSIN HCL 0.4 MG CAP PO SCH (08:43)
[2019-06-27] MEDS: CARVEDILOL 6.25 MG TAB PO SCH (08:43)
[2019-06-27] MEDS: GABAPENTIN 300 MG CAP PO SCH (08:43)
[2019-06-27] MEDS: CEROVITE ADV FORMULA TAB PO SCH (08:44)
[2019-06-27] MEDS: OMEGA-3 (PURIFIED FISH OIL) 1 GM CAP PO SCH (08:44)
[2019-06-27] MEDS: PANTOprazole 40 MG TAB PO SCH (08:44)
[2019-06-27] MEDS: INSULIN ASPART 100 UNITS/ML 3 ML PEN SC SCH ×2 (08:46→12:05)
[2019-06-27] MEDS: cefTRIAXone SODIUM 2,000 MG in DEXTROSE 5% 50 ML IV SCH (08:48)
[2019-06-27 09:25] LABS: Hematocrit (blood only) 29.1 % (42-52); Hemoglobin 9.3 g/dL (14.0-18.0); Mean Corpuscular Volume 85.8 fL (80-100); RDW Coefficient of Variation 15.4 % (11.5-14.5); RDW Standard Deviation 48.9 fL (36.4-46.3); Red Blood Count 3.39 M/uL (4.7-6.1); White Blood Count 3.22 K/uL (4.8-10.8)
[2019-06-27 09:27] LABS: Platelet Count 71 K/uL (130-400)
[2019-06-27 09:53] LABS: BUN Creatinine Ratio 16.4 (10-20); Calcium 8.3 mg/dl (8.5-10.1); Creatinine Clr Calc Pharmacy 45.2 ml/min; Est GFR (African American) 50.8; Est GFR (Non-African American) 43.8; Potassium 4.2 mmol/L (3.5-5.1)
[2019-06-27 09:57] LABS: Basophils # (auto) 0.06 K/uL (0-0.2); Basophils % (auto) 1.9 %; Eosinophils # (auto) 0.09 K/uL (0-0.5); Eosinophils % (auto) 2.8 %; Immature Granulocytes # (auto) 0.02 K/uL (0.00-0.02); Immature Granulocytes % (auto) 0.6 %; Lymphocytes # (auto) 0.61 K/uL (1.2-3.4); Lymphocytes % (auto) 18.9 %; Monocytes # (auto) 0.45 K/uL (0.11-0.59); Neutrophils # (auto) 1.99 K/uL (1.4-6.5); Neutrophils % (auto) 61.8 %
--- NOTE | 2019-06-27 10:50 | Hospitalist Progress Note ---
Date of Service June 27, 2019 Assessment & Plan (1) Alcoholic cirrhosis of liver with ascites: -Patient sent from the GI office for evaluation of abdominal pain and nausea/vomiting; underwent paracentesis on 05/28 that was equivocal for infection Afebrile, no leukocytosis Abdominal ultrasound: Minimal ascites Evaluated by GI service recommendation: "Patient admitted for concern of SBP - afebrile with a normal WBC. Ultrasound shows minimal fluid - patient refuses diagnostic paracentesis. On antibiotics. Doubt SBP, but would continue a 7-10 day course of antibiotics as OP." Completed 3 days of IV ceftriaxone Transition to ciprofloxacin 250 mg twice a day x 7 days Omeprazole changed to pantoprazole 40 mg daily Abdominal pain resolved Discharge to home, follow-up with primary care physician in 1 week Follow-up with gastroenterology service as scheduled (2) CAD (coronary artery disease): Stable -Continue aspirin, statin, beta-nj Lisinopril held in light of elevated creatinine and blood pressure being well controlled, with episodes of dizziness Continue monitoring as an outpatient (3) DM type 2 (diabetes mellitus, type 2): -Hgb A1c 8.5 05/2018 Continue Trulicity (4) Esophageal varices: -EGD 12/2018-grade 2 esophageal varices, portal gastropathy -No signs of bleeding (5) Thrombocytopenia: -Platelets 71,000 -Likely due to underlying liver disease No bleeding (6) Hypertension: -BP currently controlled, with reported episodes of dizziness Hold lisinopril Continue carvedilol Monitor blood pressure as an outpatient (7) CKD (chronic kidney disease), stage III: - baseline creat runs in the low to mid ones Creatinine 1.6 on day of discharge Hold lisinopril and spironolactone in light of elevated creatinine, reevaluate on follow-up with primary care physician Advised to use Spironolactone as needed for leg swelling, call primary care doctor immediately (8) BPH (benign prostatic hyperplasia): -Continue finasteride and tamsulosin (9) GERD (gastroesophageal reflux disease): -Omeprazole changed to pantoprazole Monitor duration of use (10) DVT prophylaxis: -SCDs due to thrombocytopenia Disposition Discharge to home Follow-up with primary care physician July 02, 2019 Follow-up with gastroenterology service as scheduled Subjective Follow-up for abdominal pain, possible SBP Seen resting in bed, comfortable, not in distress, in good spirits States he feels fine overall No abdominal pain, no nausea vomiting, no fevers or chills No dizziness, lightheadedness No other symptoms States he is ready to be discharged Review of Systems Review of Systems: All systems reviewed & are unremarkable except as noted in HPI & below Physical Exam Physical Exam: General- oriented x 3, not in distress, speaks in sentences with no effort or accessory muscle use Eyes- anicteric Neck- no JVD Lungs- clear BS BL no wheezing Heart- normal rate, regular rhythm; no murmurs Abdomen- normal bowel sounds, nondistended, soft, nontender Extremities- no pretibial edema, no calf tenderness Neuro- alert, oriented x 3; no gross focal neurologic deficits Skin- warm & dry Results & Data Vital Signs (Past 12 Hours) Vital Signs Temp Pulse Pulse Resp BP BP Pulse Ox 06/27/19 07:27 78 06/27/19 07:15 36.6 C 76 16 115/75 96 06/27/19 04:00 36.8 C 78 18 112/67 96 06/26/19 23:35 79 Laboratory Results Laboratory Results - last 24 hr 06/26/19 06/26/19 06/26/19 11:28 17:02 19:57 WBC RBC Hgb Hct MCV MCH MCHC RDW Std Deviation RDW Coeff of Sudhakar Plt Count MPV Immature Gran % (Auto) Neut % (Auto) Lymph % (Auto) [place] % (Auto) Eos % (Auto) Baso % (Auto) Immature Gran # (Auto) Neut # (Auto) Lymph # (Auto) [place] # (Auto) Eos # (Auto) Baso # (Auto) Sodium Potassium Chloride Carbon Dioxide Anion Gap BUN Creatinine Est Cr Clr Drug Dosing Est GFR ( Amer) Est GFR (Non-Af Amer) BUN/Creatinine Ratio Glucose POC Glucose 181 H 155 H 213 H Calcium 06/27/19 06/27/19 06/27/19 07:02 09:08 09:08 WBC 3.22 L RBC 3.39 L Hgb 9.3 L Hct 29.1 L MCV 85.8 MCH 27.4 MCHC 32.0 RDW Std Deviation 48.9 H RDW Coeff of Sudhakar 15.4 H Plt Count 71 L MPV 10.0 Immature Gran % (Auto) 0.6 Neut % (Auto) 61.8 Lymph % (Auto) 18.9 [place] % (Auto) 14.0 Eos % (Auto) 2.8 Baso % (Auto) 1.9 Immature Gran # (Auto) 0.02 Neut # (Auto) 1.99 Lymph # (Auto) 0.61 L [place] # (Auto) 0.45 Eos # (Auto) 0.09 Baso # (Auto) 0.06 Sodium 137 Potassium 4.2 Chloride 107 Carbon Dioxide 26 Anion Gap 4.0 BUN 27 H Creatinine 1.66 H Est Cr Clr Drug Dosing 45.2 Est GFR ( Amer) 50.8 Est GFR (Non-Af Amer) 43.8 BUN/Creatinine Ratio 16.4 Glucose 277 H POC Glucose 204 H Calcium 8.3 L
--- NOTE | 2019-06-27 10:59 | Discharge Summary ---
Date of Service June 27, 2019 Admission HPI Per Admitting Provider 59-year-old male who presents as a direct admission from the GI office for evaluation of abdominal pain and nausea/vomiting. Patient was diagnosed with alcoholic cirrhosis of liver with ascites about 6 months ago. Patient underwent paracentesis on 05/28 that was equivocal for infection. Over the past 2 weeks, patient reports increased dizziness and lightheadedness. Home health nursing has been following with him and they report a positive orthostatic blood pressures. Patient's PCP then discontinued the furosemide. Patient reports over the past 1 week, he has been having increasing abdominal pain. Today, he developed nausea with one episode of vomiting. He describes emesis as bilious in nature. No hematemesis or coffee-ground emesis. Patient denies diarrhea, bright red bleeding per rectum, dark tarry stools. He denies chest pain or shortness of breath. No syncopal events. Denies fevers and chills. No urinary symptoms. He was seen in the GI clinic today and given the abdominal pain and a recent paracentesis concern for possible infection, patient was referred for direct admission for treatment of possible SBP. At the time my exam, patient is sitting on the edge the bed in no acute distress. Admission Exam Per Admitting Provider Constitutional: WD/WN, vitals as above Eyes: PERRL, conjunctivae normal, anicteric sclerae ENMT: external ear and nose normal, oropharynx normal Respiratory: normal respiratory effort, lungs clear to auscultation Cardiovascular: Rate/Rhythm: regular rate and regular rhythm Vessels: normal peripheral pulses Extremities: no edema Gastrointestinal (Abdomen): Inspection/Auscultation: + abdomen distended and normal bowel sounds Percussion/Palpation: + abdomen tender (Mild, generalized) and abdomen soft; no hepatosplenomegaly Musculoskeletal: no cyanosis or clubbing, extremities motor strength 5/5 Skin: no rashes, warm and dry Neurologic: PERRL, EOMI, accommodation nl, no face palsy, no dysarthria Psychiatric: A+Ox3, euthymic affect Principal Diagnosis ABDOMINAL PAIN, POSSIBLE SPONTANEOUS BACTERIAL PERITONITIS Discharge Data Allergies Allergy/AdvReac Type Severity Reaction Status Date / Time Iodinated Contrast- Oral and Allergy Mild rash? Verified 01/14/19 07:58 IV Dye Consultations 06/25/19 14:23 Consult Gastroenterology Routine Ordered Studies 06/25/19 15:12 US abdomen limited Routine US abdomen limited HISTORY: Hepatic cirrhosis cirrhosis. COMPARISON: None. FINDINGS: Pancreas: Poorly seen due to overlying bowel content. Liver: Heterogeneous internal architecture. Trace. Ascites. Findings consistent with hepatic cirrhotic change. Gallbladder: No gallbladder wall thickening. No gallstones. CBD: 3 mm Right kidney: Moderate right renal hydronephrosis. IMPRESSION: 1. Hepatic cirrhosis. 2. Minimal perihepatic ascites. 3. Moderate right renal hydronephrosis. Electronically signed by: Que Melgar M.D. 06/25/2019 10:19 PM Hospital Course (1) Alcoholic cirrhosis of liver with ascites: -Patient sent from the GI office for evaluation of abdominal pain and nausea/vomiting; underwent paracentesis on 05/28 that was equivocal for infection Afebrile, no leukocytosis Abdominal ultrasound: Minimal ascites Evaluated by GI service recommendation: "Patient admitted for concern of SBP - afebrile with a normal WBC. Ultrasound shows minimal fluid - patient refuses diagnostic paracentesis. On antibiotics. Doubt SBP, but would continue a 7-10 day course of antibiotics as OP." Completed 3 days of IV ceftriaxone, Transition to ciprofloxacin 250 mg twice a day x 7 days Omeprazole changed to pantoprazole 40 mg daily Abdominal pain resolved Discharge to home, follow-up with primary care physician in 1 week Follow-up with gastroenterology service as scheduled (2) CAD (coronary artery disease): Stable -Continue aspirin, statin, beta-nj Lisinopril held in light of elevated creatinine and blood pressure being well controlled, with episodes of dizziness Continue monitoring as an outpatient (3) DM type 2 (diabetes mellitus, type 2): -Hgb A1c 8.5 05/2018 Continue Trulicity (4) Esophageal varices: -EGD 12/2018-grade 2 esophageal varices, portal gastropathy -No signs of bleeding (5) Thrombocytopenia: -Platelets 71,000 -Likely due to underlying liver disease No bleeding (6) Hypertension: -BP currently well controlled, with reported episodes of dizziness Hold lisinopril Continue carvedilol Monitor blood pressure as an outpatient (7) CKD (chronic kidney disease), stage III: - baseline creat runs in the low to mid ones Creatinine 1.6 on day of discharge Hold lisinopril and spironolactone in light of elevated creatinine, reevaluate on follow-up with primary care physician Advised to use Spironolactone as needed for leg swelling, call primary care doctor immediately Abd US: Moderate right renal hydronephrosis, please ff up as outpatient (8) BPH (benign prostatic hyperplasia): -Continue finasteride and tamsulosin (9) GERD (gastroesophageal reflux disease): -Omeprazole changed to pantoprazole Monitor duration of use (10) DVT prophylaxis: -SCDs due to thrombocytopenia Disposition Discharge to home Follow-up with primary care physician July 02, 2019 Follow-up with gastroenterology service as scheduled Total Time Total Time Spent Total Time Spent (In Minutes): 45 minutes Discharge Plan Discharge Items Patient Disposition: Home - Self-Care Reason For Visit: SBP Discharge Diagnosis: ABDOMINAL PAIN, POSSIBLE BACTERIAL PERITONITIS Discharge Goals: Diagnostic testing and Therapeutic intervention Activity: Resume your previous activity Non-emergency contact: Primary Care Provider and Teacher Public [facility] Call non-emergency contact if: you have any medication questions, your symptoms worsen, your pain is not controlled and you have a fever Follow-up/Referrals: Km Timmons MD [Primary Care Provider] - 07/02/19 9:45 am Diet: Carb Consistent or DM2 and Heart Healthy Addtl Provider Instructions: PLEASE REVIEW YOUR NEW MEDICATION LIST AND FOLLOW INSTRUCTIONS CAREFULLY. YOUR ANTIBIOTIC IS CIPROFLOXACIN 250MG BY MOUTH TWICE A DAY FOR 5 DAYS. PLEASE TAKE A PROBIOTIC DAILY WHILE ON ANTIBIOTIC AND AT LEAST 1 WEEK AFTER COMPLETING THE ANTIBIOTIC COURSE. STOP TAKING SPIRONOLACTONE and LISINOPRIL FOR NOW. DR. TIMMONS WILL ADVISE YOU ON WHEN TO RESUME TAKING THESE MEDICATIONS, DURING YOUR FOLLOW UP VISIT WITH HIM.. KEEP WELL HYDRATED. ESOMEPRAZOLE IS NOW BEING CHANGED TO PANTOPRAZOLE DAILY. CALL PRIMARY CARE PHYSICIAN OR RETURN TO THE ER IMMEDIATELY IF WITH RECURRENCE OR WORSENING OF SYMPTOMS, FEVER/CHILLS, ABDOMINAL PAIN, NAUSEA/VOMITING, DIARRHEA, CHANGES WITH URINATION, LEG SWELLING OR ABDOMINAL DISTENTION. Prescriptions: New pantoprazole 40 mg Tablet,Delayed Release (Dr/Ec) 40 mg PO DAILY 30 Days Qty: 30 RF: 2 ciprofloxacin HCl 250 mg tablet 250 mg PO BID Qty: 14 RF: 0 Continued atorvastatin 40 mg Tablet 40 mg PO PM RF: 0 nitroglycerin 400 mcg/spray Aerosol,[place] 1 dose Sublingual UD PRN (Reason: Angina) RF: 0 aspirin 81 mg Tablet,Delayed Release (Dr/Ec) 81 mg PO QAM RF: 0 tamsulosin 0.4 mg Capsule 0.4 mg PO DAILY RF: 0 gabapentin 300 mg Capsule 300 mg PO TID RF: 0 finasteride 5 mg Tablet 5 mg PO DAILY RF: 0 omega 8-gyw-fbu-fish oil [Fish Oil] 1,000 mg (120 mg-180 mg) Capsule 1 cap PO BID RF: 0 Multivitamin 50 Plus Tablet 1 tab PO DAILY RF: 0 Trulicity 0.75 mg/0.5 mL Pen Injector See Rx Instructions .ROUTE .COMPLEX RF: 0 carvedilol 6.25 mg Tablet 6.25 mg PO BID RF: 0 albuterol sulfate [ProAir HFA] 90 mcg/actuation Hfa Aerosol Inhaler 2 puff inhalation DAILY PRN (Reason: Shortness Of Breath) RF: 0 cholecalciferol (vitamin D3) 2,000 unit Capsule 2,000 unit PO DAILY RF: 0 Discontinued lisinopril 40 mg Tablet 40 mg PO QAM RF: 0 spironolactone 100 mg Tablet 100 mg PO DAILY RF: 0 esomeprazole magnesium 20 mg capsule,delayed release(DR/EC) 20 mg PO DAILY RF: 0 Stand-Alone Forms: [facility] Discharge Orders: Discharge Order (Routine); Ordered 06/27/19 Ordered By: Alejandro Gloria Admission Data Admit Date/Time: 06/25/19 14:03 Attending Provider: Alejandor Gloria Admit Provider: John Gutierrez Primary Care Provider: Km Timmons Other Providers: Theresa Putnam ; John Gutierrez Service: Telemetry Medical Other Interventions: Discharge Summary Assessment (RN) Last Done: 06/27/19 11:22
== END 2019-06-27 12:45 | disposition home health service (06) | DRG 434 ==
LOC: 2W 14:03 → SUATTDRO 14:03

== ENCOUNTER 2019-12-29 16:17 | Inpatient (IN) ==
[2019-12-29 17:47] LABS: Alanine Aminotransferase 11 U/L (12-78); Albumin Level 2.3 gm/dl (3.4-5.0); Aspartate Aminotransferase 55 U/L (15-37); BUN Creatinine Ratio 21.2 (10-20); Blood Urea Nitrogen 26 mg/dl (7-18); Calcium 8.5 mg/dl (8.5-10.1); Carbon Dioxide 28 mmol/L (21-32); Chloride 104 mmol/L (98-107); Est GFR (African American) 72.3; Est GFR (Non-African American) 62.4; Glucose 112 mg/dl (70-99); Lipase 87 U/L (73-393); Potassium 3.5 mmol/L (3.5-5.1); Sodium 138 mmol/L (136-145)
[2019-12-29 17:52] LABS: Albumin Globulin Ratio 0.5 (0.9-2); Alkaline Phosphatase 161 U/L (45-117); Bilirubin,Total 0.8 mg/dl (0.2-1); Globulin 4.5 gm/dl (2.5-4.0); NT Pro B Type Natriuretic Pept 666 pg/ml (0-900); Total Protein 6.8 gm/dl (6.4-8.2); Troponin I < 0.015 ng/ml (0-0.045)
[2019-12-29 17:55] LABS: Basophils # (auto) 0.01 K/uL (0-0.2); Basophils % (auto) 0.2 %; Eosinophils # (auto) 0.07 K/uL (0-0.5); Eosinophils % (auto) 1.1 %; Hemoglobin 8.7 g/dL (14.0-18.0); Immature Granulocytes # (auto) 0.01 K/uL (0.00-0.02); Immature Granulocytes % (auto) 0.2 %; Lymphocytes # (auto) 0.37 K/uL (1.2-3.4); Lymphocytes % (auto) 5.7 %; Mean Corpuscular Volume 76.7 fL (80-100); Monocytes # (auto) 0.92 K/uL (0.11-0.59); Monocytes % (auto) 14.1 %; Neutrophils # (auto) 5.13 K/uL (1.4-6.5); Neutrophils % (auto) 78.7 %; Platelet Count 147 K/uL (130-400); RDW Coefficient of Variation 16.6 % (11.5-14.5); RDW Standard Deviation 46.3 fL (36.4-46.3); Red Blood Count 3.78 M/uL (4.7-6.1); White Blood Count 6.51 K/uL (4.8-10.8)
--- NOTE | 2019-12-29 18:03 | XRay Report ---
XR chest 1V portable HISTORY: Atypical Chest Pain COMPARISON: Chest 08/06/2019. FINDINGS: No pneumothorax. No pleural effusions. There is elevation of the left hemidiaphragm, unchan ged. The heart remains mildly enlarged. There are linear densities within the left lung base suggesti ve of subsegmental atelectasis. There is mild central pulmonary vascular congestion without overt [place]. This remains unchanged. IMPRESSION: 1. Elevation of the left hemidiaphragm with left basilar linear densities consistent with subsegmenta l atelectasis. 2. Stable mild cardiomegaly and mild central pulmonary vascular congestion without overt edema. ACT 112: Negative or not required by law. Electronically signed by: Ash Root M.D. 12/29/2019 6:01 PM
[2019-12-29 18:06] LABS: INR 1.3 (0.9-1.1); Partial Thromboplastin Time 26.4 Seconds (21.0-31.0); Prothrombin Time 12.8 Seconds (9.0-12.0)
[2019-12-29] MEDS ORDERED: FUROSEMIDE 40 MG/4 ML VIAL IV STA (18:25)
[2019-12-29] MEDS ORDERED: PNEUMOCOCCAL POLYSACCHARIDES 25 MCG/0.5 ML VIAL/SYR IM ONE (20:47)
[2019-12-29] MEDS ORDERED: PNEUMOCOCCAL ADMINISTRATION CHARGE ONE (20:47)
[2019-12-29] MEDS ORDERED: NITROGLYCERIN SL PRN (21:08)
[2019-12-29] MEDS ORDERED: OXYBUTYNIN CHLORIDE 5 MG TAB PO PRN (21:08)
[2019-12-29] MEDS ORDERED: MECLIZINE HCL 25 MG TAB PO PRN (21:08)
[2019-12-29] MEDS ORDERED: ALBUTEROL HFA 8 GM INHALER INH PRN (21:08)
[2019-12-29] MEDS ORDERED: FUROSEMIDE 40 MG/4 ML VIAL IV SCH (21:08)
[2019-12-29] MEDS ORDERED: NITROGLYCERIN SL 0.4 MG/TAB TAB SL PRN (21:08)
--- NOTE | 2019-12-29 21:50 | History and Physical Report ---
DATE OF ADMISSION: 12/29/2019 CHIEF COMPLAINT: Increasing lower extremity edema and shortness of breath on exertion. HISTORY OF PRESENT ILLNESS: This is a 59-year-old male with past medical history significant for type 2 diabetes, hyperlipidemia, CAD, alcoholic liver cirrhosis with ascites, GERD, chronic kidney disease stage III, history of urinary bladder outlet obstruction, status post bilateral nephrostomy tubes, thrombocytopenia, history of tobacco abuse, who lives with his , who walks with the help of cane, who presents with worsening lower extremity edema and also is saying now he is getting shortness of breath on exertion. He has cough going on for last 2 weeks, dry cough. Denies any fever, chills. No chest pain. He is chronically nauseous. He is also having alternating diarrhea and constipation. No blood in the stools or black stools. Nephrostomy tubes are draining fine. Rarely once in a while he gets blood in the urine. Last Monday, his nephrostomy tubes were changed in [place]. He used to be on Lasix and Aldactone in the past, but it was stopped possibly secondary to his kidney issues and he currently is on Lasix and takes it as needed, he does not take it every day. He says his stomach is getting distended and also his lower extremity edema is getting worse, but it got significantly worse the last few days and he was also getting some shortness of breath in exertion, that is the reason he came to the ER. Denies any headache. He gets blurred vision in the morning when he gets up for half an hour, then they are fine. He has dizziness when he stands up. No earache, no runny nose, no sore throat. Appetite is not that great, but no dysphagia or odynophagia. Sleeps okay. Ambulates okay. Currently resting comfortably and hemodynamically stable. A dose of Lasix was given in the ER. He had paracentesis done in May 2019. There is a plan for nephroureteral tubes as per urology and probably turp when he is more stable. ALLERGIES: IODINATED CONTRAST. PAST MEDICAL HISTORY: As mentioned above. PAST SURGICAL HISTORY: Heart catheterization, colonoscopy, EGDs, bilateral nephrostomy tubes, cataract surgeries, tonsillectomy, adenoidectomy. MEDICATIONS: Currently, the patient is on Nexium 20 mg p.o. daily, Proscar 5 mg p.o. daily, Lasix 40 mg daily p.r.n., Zofran 4 mg every 6 hours p.r.n., Flomax 0.4 mg p.o. daily, gabapentin 300 mg p.o. t.i.d., glimepiride 4 mg p.o. daily before breakfast, lisinopril 5 mg p.o. daily, Antivert 25 mg p.o. t.i.d. p.r.n., tramadol 50 mg p.o. q. 12 hours p.r.n., vitamin D 1000 units p.o. daily, Ditropan 2.5 mg p.o. t.i.d., ProAir HFA p.r.n., atorvastatin 40 mg p.o. daily, fish oil 1 gram p.o. b.i.d., nitroglycerin 0.4 mg sublingual p.r.n., aspirin 81 mg p.o. daily, multivitamin 1 tablet p.o. daily. FAMILY HISTORY: Significant for mother had cancer, father had colon cancer and bad heart. SOCIAL HISTORY: , quit smoking in 2000, smoked 2 packs a day for 20 years. No alcohol currently. No drug use. REVIEW OF SYSTEMS: As per HPI. Rest of review of systems negative. PHYSICAL EXAMINATION: GENERAL: The patient is of moderate build, not in acute distress. VITAL SIGNS: Temperature 36.7, pulse 104, respiratory rate 23, blood pressure 116/88, oxygen 95% on room air. HEENT: No pallor, no icterus. Pupils equal, round, and reactive to light. NECK: No JVD, no neck masses, no carotid bruits. CARDIOVASCULAR: S1, S2 heard. Tachycardia. No murmurs. RESPIRATORY SYSTEM: Normal AP diameter. No accessory muscle use. No wheezing, no crackles. ABDOMEN: Soft, bowel sounds present. Distended. Mild abdominal discomfort in the periumbilical region. No guarding, no rigidity. CENTRAL NERVOUS SYSTEM: Cranial nerves II-XII grossly intact, nonfocal. EXTREMITIES: Bilateral lower extremity +2 edema present, no erythema seen. LABORATORY DATA: WBC 6.5, hemoglobin 8.7, hematocrit 29, platelets 147. PT 12.8, INR 1.3, APTT 26.4. Sodium 138, potassium 3.5, chloride 104, bicarbonate 28, BUN 26, creatinine 1.2, serum glucose 112, calcium 8.5, total bilirubin 0.8, AST 55, ALT 11, alkaline phosphatase 161. Ammonia 20. Troponin I less than 0.015. BNP 666, lipase 87. IMAGING DATA: Chest x-ray, elevation of left hemidiaphragm with left basilar linear density consistent with subsegmental atelectasis, stable mild cardiomegaly and mild central pulmonary vascular congestion without overt edema. EKG: Sinus tachycardia with occasional PVCs, Q-waves in inferior and anterior leads. ASSESSMENT AND PLAN: This is a 59-year-old male with history of alcoholic liver cirrhosis, currently takes Lasix only as needed because of his kidney issues. Presents with increased lower extremity edema and ascites. 1. Volume overload, history of alcoholic cirrhosis, increasing lower extremity edema and increasing ascites, and also complains of some abdominal pain. The patient used to be on Lasix and Aldactone in the past, but was stopped and only currently on Lasix as needed because of his kidney issues, but his edema is getting worsened. Received IV Lasix 20 in the ER, we will place on Lasix 20 IV b.i.d. with another dose now. Monitor the response. We will consult GI in a.m. for adjustment of medications and closely monitor. He has some EKG changes. We will also get an echocardiogram to rule out any component of congestive heart failure. 2. Ascites. We will get an abdominal ultrasound. The patient comes with some abdominal discomfort. There is no leukocytosis and he is afebrile, but empirically we will start him on IV Rocephin and follow the ultrasound report, and we will keep n.p.o. after midnight and can plan for paracentesis in a.m. 3. History of diabetes. We will hold his glimepiride. Place him on insulin sliding scale. Follow HbA1c levels. Follow blood sugar. 4. History of coronary artery disease status post stent. On aspirin, she will continue. On statin, on lisinopril currently. We will follow the echocardiogram. 5. History of bladder outlet obstruction with history of renal failure in the past requiring dialysis. He was transferred to [place] and had dialysis for few days. Currently status post bilateral nephrostomy tubes. Nephrostomy tubes were changed last Monday. Follows up with urology. There is a plan for possible nephroureterostomy tubes and possible TURP when patient is stable. Getting IV diuretics. We will monitor the kidney function. Continue his Proscar and Flomax. 6. Hyperlipidemia. Continue statin. 7. History of thrombocytopenia, currently labs look stable. 8. Gastroesophageal reflux disease. Continue PPI. 9. Deep vein thrombosis prophylaxis, sequential compression devices. DISPOSITION: Closely monitor in the med/surg tele. Level 1 full code. PT and OT prior to discharge. Social service to help with discharge planning. BERTIN
[2019-12-29] MEDS: FUROSEMIDE 20 MG in SYRINGE 0 ML IV SCH (22:21)
[2019-12-29] MEDS: cefTRIAXone SODIUM 2,000 MG in DEXTROSE 5% 50 ML IV SCH (22:21)
[2019-12-29] MEDS: GABAPENTIN 300 MG CAP PO SCH (22:22)
[2019-12-29] MEDS: ATORVASTATIN 40 MG TAB PO SCH (22:23)
[2019-12-29] MEDS: TRAMADOL HCL 50 MG TABLET PO PRN (22:41)
[2019-12-29] MEDS: INSULIN ASPART 100 UNITS/ML 3 ML PEN SC SCH (22:51)
[2019-12-30 05:39] LABS: Basophils # (auto) 0.02 K/uL (0-0.2); Basophils % (auto) 0.4 %; Eosinophils # (auto) 0.08 K/uL (0-0.5); Eosinophils % (auto) 1.5 %; Hematocrit (blood only) 24.9 % (42-52); Hemoglobin 7.5 g/dL (14.0-18.0); Immature Granulocytes # (auto) 0.02 K/uL (0.00-0.02); Immature Granulocytes % (auto) 0.4 %; Lymphocytes # (auto) 0.53 K/uL (1.2-3.4); Lymphocytes % (auto) 10.2 %; Mean Corpuscular Hemoglobin 22.9 pg (25-34); Mean Corpuscular Hgb Conc 30.1 g/dL (32-36); Mean Corpuscular Volume 76.1 fL (80-100); Mean Platelet Volume 9.4 fL (7.4-10.4); Monocytes # (auto) 0.86 K/uL (0.11-0.59); Monocytes % (auto) 16.5 %; Neutrophils # (auto) 3.69 K/uL (1.4-6.5); Platelet Count 114 K/uL (130-400); RDW Coefficient of Variation 16.5 % (11.5-14.5); RDW Standard Deviation 46.1 fL (36.4-46.3); Red Blood Count 3.27 M/uL (4.7-6.1)
[2019-12-30 05:56] LABS: BUN Creatinine Ratio 22.9 (10-20); Creatinine Clr Calc Pharmacy 61.5 ml/min; Est GFR (African American) 73.7; Est GFR (Non-African American) 63.6; Potassium 3.4 mmol/L (3.5-5.1)
[2019-12-30 05:59] LABS: Hypochromasia Present; Polychromasia 1+
[2019-12-30 06:57] LABS: Estimated Average Glucose 148 mg/dl; Hemoglobin A1C 6.8 % (4.5-5.6)
--- NOTE | 2019-12-30 07:05 | Ultrasound Report ---
ULTRASOUND ASCITES CHECK CLINICAL HISTORY: Cirrhosis. Abdominal distention. FINDINGS: Real-time grayscale sonography of all 4 quadrants of the abdomen is performed to assess for abdominal ascites. Survey images of the liver show cirrhotic morphology. There is a small to moderat e volume of abdominal ascites. The largest pocket of fluid is present in the right lower quadrant. IMPRESSION: Small to moderate volume of abdominal ascites. Electronically signed by: Luan Bennett M.D. 12/30/2019 7:03 AM
[2019-12-30] MEDS: ASPIRIN 81 MG ECTAB PO SCH (08:48)
[2019-12-30] MEDS: FINASTERIDE 5 MG TAB PO SCH (08:48)
[2019-12-30] MEDS: PANTOprazole 40 MG TAB PO SCH (08:48)
[2019-12-30] MEDS: FUROSEMIDE 20 MG in SYRINGE 0 ML IV SCH (08:50)
[2019-12-30] MEDS: CHOLECALCIFEROL 1,000 UNITS 25 MCG TAB PO SCH (08:50)
[2019-12-30] MEDS: CEROVITE ADV FORMULA TAB PO SCH (08:50)
[2019-12-30] MEDS: GABAPENTIN 300 MG CAP PO SCH ×3 (08:51→21:07)
[2019-12-30] MEDS: TAMSULOSIN HCL 0.4 MG CAP PO SCH (08:51)
[2019-12-30] MEDS: INSULIN ASPART 100 UNITS/ML 3 ML PEN SC SCH ×4 (08:51→20:47)
[2019-12-30] MEDS: TRAMADOL HCL 50 MG TABLET PO PRN ×2 (09:00→19:22)
[2019-12-30] MEDS ORDERED: lisinopriL 5 MG TAB PO SCH (09:00)
--- NOTE | 2019-12-30 09:34 | Gastrointestinal Consultation ---
Date of Consultation December 30, 2019 Assessment & Plan (1) Alcoholic cirrhosis of liver with ascites: Mr. Lomax is a 59 yr old male pt with a hx of ETOH cirrhosis, abstaining. 1. Would defer paracentesis because small to moderate ascites, (so large volume paracentesis not needed) and paracentesis would not be helpful for dx of SBP because pt is already on ceftriaxone. 2. Doppler US to r/o new PVT. 3. Low salt diet. 4. Would restart low dose daily diuretics such as furosemide 20mg/spironolactone 50mg daily - however will need to clear with urology prior to starting. Will place consult. Present on Admission?: Yes Supervising Physician Co-Signing Physician Notes I have personally seen and examined the patient with Radha Schmidt. Her note reflects my exam and findings. I agree with her impression and plan. Restart low dose diuretics and follow clinically. Freddy Cabezas M.D. History of Present Illness Reason for Consultation: ascites Requesting Physician: Dr. Castañeda Attending Physician: Marily Murguia DO History of Present Illness Mr. Willie Lomax is a 59 yr old male pt of Dr. Del Rosario with a hx of DM-2, CAD distant NE, ETOH cirrhosis with ascites, GERD, CKD-3, urinary bladder outlet obstruction with bilateral nephrostomy tubes. He presented to the ED yesterday for increasing ascites and lower leg edema. GI is consulted for ascites. The pt reports that he has had gradually increasing ascites for approx 2 weeks. Abdomen is uncomfortable but not painful. He also has chronic nausea and experienced some SOB and lightheadedness with exertion in the past few days. He reports loose black BMs one day a week ago but had taken 2 doses of Pepto Bismol prior and that his most recent BM was yesterday, brown, formed. He denies confusion. No fevers, chills sweats etc. No fevers, chills, sweats. Regarding his hx of ETOH cirrhosis, this was dx'ed by CT at [facility] in oct 2018 and he has abstained since that time. He was admitted to [facility] [place] in 2018 for increasing ascites with dx tap with approx 39 neutrophils (579 WBCs x 6.9% neutrophils) and was empirically tx for SBP at that time. Though he was prescribed furosemide 40mg/spironolactone 100mg daily by GI in 2019. Pt tells me that his OP PCP did not want him taking these and it was changed to a prn basis several months ago due to concern regarding possible worsening of his CKD and urinary bladder outlet obstruction issues. Most recent EGD 12/2018: grade II varices were found in the lower third of the esophagus, few petechiae suggestive of GAVE. Most recent screening for HCC: Liver US on arrival w/o mention of discreet lesion. On arrival, liver US with small to moderate amt of ascites. WBC 5. He is receiving ceftriaxone. Hb 8.7->7.5 (baseline 9 in June 2019). Pt is awake, alert, oriented and reports mild abdominal discomfort. He is thirsty and asks to drink. Allergies Allergy/AdvReac Type Severity Reaction Status Date / Time Iodinated Contrast Media Allergy Mild rash? Verified 12/29/19 17:33 Home Medications Home Medications Medication Instructions Recorded Confirmed Type aspirin 81 mg PO QAM 01/03/19 12/29/19 History atorvastatin 40 mg PO PM 01/03/19 12/29/19 History finasteride 5 mg PO DAILY 01/03/19 12/29/19 History gabapentin 300 mg PO TID 01/03/19 12/29/19 History nitroglycerin 1 dose SUBLINGUAL UD PRN 01/03/19 12/29/19 History omega 0-bhd-nce-fish oil [Fish Oil] 1 cap PO BID 01/03/19 12/29/19 History tamsulosin 0.4 mg PO DAILY 01/03/19 12/29/19 History Multivitamin 50 Plus 1 tab PO DAILY 05/28/19 12/29/19 History albuterol sulfate [ProAir HFA] 2 puff INHALATION DAILY PRN 05/28/19 12/29/19 History cholecalciferol (vitamin D3) 1,000 unit PO DAILY 12/29/19 12/29/19 History [Vitamin D3] esomeprazole magnesium [Nexium] 20 mg PO DAILY 12/29/19 12/29/19 History furosemide [Lasix] 40 mg PO DAILY PRN 12/29/19 12/29/19 History glimepiride 4 mg PO QAM 12/29/19 12/29/19 History lisinopril 5 mg PO DAILY 12/29/19 12/29/19 History meclizine 25 mg PO TID PRN 12/29/19 12/29/19 History ondansetron HCl [Zofran] 4 mg PO Q6 PRN 12/29/19 12/29/19 History oxybutynin chloride 2.5 mg PO TID PRN 12/29/19 12/29/19 History tramadol [Ultram] 50 mg PO Q12 PRN 12/29/19 12/29/19 History Patient History Medical History Abdominal pain Acute urinary retention (Inactive) Acute UTI (Inactive) 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) BPH (benign prostatic hyperplasia) (Chronic) CAD (coronary artery disease) (Chronic) 12/1999-PCI to circumflex 03/2001-RCA stent 06/2001-LAD stent x 2 CHF (congestive heart failure) CKD (chronic kidney disease), stage III (Chronic) DM type 2 (diabetes mellitus, type 2) (Chronic) DVT prophylaxis Dyslipidemia (Chronic) Esophageal varices Robertson catheter problem (Inactive) GERD (gastroesophageal reflux disease) (Chronic) Hypertension (Chronic) Myocardial infarction N&V (nausea and vomiting) Thrombocytopenia Surgical History History of esophagogastroduodenoscopy (EGD) (Chronic) 12/2018-nonbleeding grade 2 esophageal varices, portal gastropathy History of tonsillectomy and adenoidectomy (Chronic) Family History Father Family history of diabetes mellitus Sister Family history of diabetes mellitus Mother Family history of esophageal cancer Social History Preferred Language: Cambodian Communication Ability: Effective Tool Or Die Drawing Checker Required: No Beliefs That Will Affect Care: None marital status: Current Living Situation: Spouse Feels Safe at Home: Yes Safety Concerns: Feels Safe At This Time Smoking Status: Former smoker Tobacco Type: cigarettes ; Do You Dip or Chew Tobacco: No ; Second Hand Exposure: No ; Hx Alcohol Use: No Hx Substance Use: No Review of Systems Review of Systems: ROS: Gen: + lightheaded with ambulation at times (mentions occurs on awakening in the mornings), no fevers, no weight loss Eyes: No eye redness, or pain, no recent vision changes Resp: No SOB, no cough Cardio: No palpitations/irregular beats, no chest pain GI: Abdomen is slightly uncomfortable but no pain, no nausea/vomiting : Denies pain on urination Skin: No jaundice, itching or new rashes Physical Exam Constitutional: WD/WN, vitals as above Eyes: PERRL, conjunctivae normal, anicteric sclerae ENMT: external ear and nose normal, oropharynx normal Neck: trachea midline, no thyromegaly Respiratory: normal respiratory effort, lungs clear to auscultation Cardiovascular: RRR, no murmur, no edema Gastrointestinal (Abdomen): moderate, non taunt ascites on exam, mild ten derness on exam. Skin: no rashes, warm and dry no jaundice Neurologic: PERRL, EOMI, accommodation nl, no face palsy, no dysarthria Psychiatric: A+Ox3, euthymic affect vague historian Genitourinary: nephrostomy tubes draining clear med/dark yellow urine. Lymphatic: no cervical or axillary lymphadenopathy Results & Data Vital Signs (Past 12 Hours) Vital Signs Temp Pulse Pulse Resp BP Pulse Ox 12/30/19 08:45 97 H 12/30/19 04:00 37.1 C 97 H 18 112/62 92 12/30/19 00:00 103 H 12/29/19 23:00 37.2 C 101 H 18 100/63 91
--- NOTE | 2019-12-30 11:52 | Ultrasound Report ---
US duplex portal hepatic veins CLINICAL HISTORY: 59 years-old Male presenting with increasing ascites, concern for vessel thrombosis . TECHNIQUE: Real-time grayscale and color and spectral Doppler ultrasound imaging of the liver was per formed. COMPARISON: 06/25/2019. FINDINGS: Liver: Nodular contour with hyperechogenic parenchyma and heterogeneous echotexture, consistent with cirrhosis. Vasculature: Portal veins: Main portal vein with normal antegrade flow and gentle undulating waveforms. Peak veloc ity 21 cm/s. Right and left portal veins with normal directional flow. Hepatic arteries: Not interrogated. Hepatic veins: Right, middle, and left hepatic veins patent though with slightly blunted waveforms li ewa result of cirrhosis. Splenic vein: Not interrogated. IVC: Grossly patent. Biliary: No gross intrahepatic biliary ductal dilatation. Gallbladder: Not evaluated. Ascites: Moderate volume. Other: None. IMPRESSION: 1. Patent portal and hepatic veins. Normal antegrade flow within the portal vein. 2. Moderate volume ascites. 3. Cirrhosis. ACT 112: Negative or not required by law. Electronically signed by: Jonny Small M.D. 12/30/2019 11:51 AM
--- NOTE | 2019-12-30 12:28 | Electrocardiogram Report ---
Test Reason : Blood Pressure : / mmHG Vent. Rate : 107 BPM Atrial Rate : 107 BPM P-R Int : 120 ms QRS Dur : 090 ms QT Int : 348 ms P-R-T Axes : 023 -15 -10 degrees QTc Int : 464 ms Sinus tachycardia with occasional Premature ventricular complexes and PACs Inferior infarct , age undetermined Possible Anterior infarct , age undetermined Abnormal ECG When compared with ECG of 06-AUG-2019 02:06, Premature ventricular complexes are now Present QRS duration has decreased Borderline criteria for Anterior infarct are now Present Inferior infarct is now Present Confirmed by Jorid Winter ([id number]) on 12/30/2019 12:27:37 PM Referred By: REFERRED SELF Confirmed By:Jordi Winter
--- NOTE | 2019-12-30 12:48 | Electrocardiogram Report ---
Test Reason : Blood Pressure : / mmHG Vent. Rate : 099 BPM Atrial Rate : 099 BPM P-R Int : 122 ms QRS Dur : 090 ms QT Int : 332 ms P-R-T Axes : 020 -15 051 degrees QTc Int : 426 ms Sinus rhythm with sinus arrhythmia with Premature ventricular complexes Inferior infarct (cited on or before 29-DEC-2019) Abnormal ECG When compared with ECG of 29-DEC-2019 17:06, (unconfirmed) Premature atrial complexes no longer present Confirmed by Jordi Winter ([id number]) on 12/30/2019 12:47:46 PM Referred By: REFERRED SELF Confirmed By:Jordi Winter
--- NOTE | 2019-12-30 17:16 | Hospitalist Progress Note ---
Date of Service December 30, 2019 Assessment & Plan (1) Alcoholic cirrhosis of liver with ascites: Patient with a history of cirrhosis who was previously on diuretics then subsequently taken off secondary to acute renal failure from obstructive uropathy. Nephrostomy tubes are now in place patient is making good urine and is back to his baseline renal function. He is receiving some IV Lasix today, and therefore will be watching his renal function closely in the morning. However, in his current hypervolemic state, diuretics are indicated. I believe these can safely be restarted in this monitored setting, watching kidney function closely. We will plan to restart these pending kidney function results on a.m. blood work. (2) Anemia: No acute blood loss. Patient with chronic comorbidities. Will transfuse 2 units now and repeat CBC in a.m. Lasix in between units given hypervolemic state. (3) Lower extremity edema: Secondary to decompensated cirrhosis with ascites. See plan above. (4) Esophageal varices: The patient has no reports of GI bleeding or black stools. We will discuss the need for propanolol with GI. The patient is currently not on a beta-nj and was previously on Coreg, which was stopped for hypotension during a prior hospitalization. (5) CKD (chronic kidney disease), stage III: At baseline kidney function. Plan to restart diuretics in a.m. if this is stable. It also may be prudent to hold his lisinopril at this time while performing a trial of diuretics and restart this later as outpatient pending kidney function trend. (6) Hypotension: Borderline rest blood pressures. Will hold lisinopril for now secondary to hypotension and in preparation to start diuretics in a.m. (7) BPH (benign prostatic hyperplasia): Per urology notes available, patient is too sick to consider TURP. He is followed by urology as outpatient, and this may be considered down the road when he is more optimized. (8) DM type 2 (diabetes mellitus, type 2): Some hypoglycemia. Continue with correction factor insulin only. Stop carb coverage. No basal insulin given. (9) Thrombocytopenia: Related to chronic cirrhosis. No active bleeding noted. (10) DVT prophylaxis: SCDs, relatively contraindicated in setting of anemia. Giving blood today. Full code Disposition-continue hospitalization while monitoring renal function closely for the next several days. Marily Murguia DO [facility] Hospitalist Subjective 59 yo M with alcoholic cirrhosis of liver. Presents with swelling in his abdomen and his legs after stopping diuretic therapy. He has bilateral nephrostomy tubes in place 2/2 BPH. He reports feeling well today and he denies any confusion. He is eating well. Denies abdominal pain Historically he started his care in [address] [place] [address] in April 2019 with press gross hematuria. He had a trip to the OR for cystoscopy there but bleeding was too brisk to allow adequate visualization of bladder to rule out bladder tumor. His cytology was normal. He had a void trial there but then went back into urinary retention. He had an admission at [facility] for liver failure and ultimately went into kidney failure from obstructive uropathy and was transferred to [place]. He had dialysis for 3 days and had bilateral nephrostomy tubes placed. Cystoscopy was repeated late July 2019 and again the visualization was limited but no zaina tumor was seen. Per Dr. Whiting (urology) he was too ill with respect to anemia, thrombocytopenia and mildly elevated INR to consider TURP in August 2019. [place] [facility] [place] [place], however, during his Sep 2019 visit with Leigh TUCKER, the notes reported that he was no longer taking Lasix 40mg daily and aldactone 2/2 creatinine issues. It is probable this was surrounding his acute renal failure mentioned above. Currently, his creatinine is 1.2 and he is making good urine. He is also fluid overloaded and in need of having his diuretics restarted. The patient reports that when he was taking them he felt well and had limited swelling. Review of Systems Review of Systems: All systems reviewed & are unremarkable except as noted in Subjective Physical Exam Physical Exam: CONSTITUTIONAL: WNWD, vitals as above, generally well- appearing EYES: normal conjuctivae, no scleral icterus ENT: MMM RESPIRATORY: clear to auscultation bilaterally, no crackles, rales or wheezes, normal respiratory effort CARDIOVASCULAR: regular rate and rhythm, S1 and 2 heard without murmurs, gallops or rubs, no JVD, no peripheral edema GASTROINTESTINAL: normal bowel sounds, soft, nontender, nondistended MUSCULOSKELETAL: strength 5/5 throughout, head is normocephalic and atraumatic SKIN: warm and dry, some brownish coloration to the back of the neck and the lower abdomen. NEUROLOGIC: CN 2-12 grossly intact, no sensory deficit, normal cognition, PSYCHIATRIC: alert cooperative and oriented to person, place and time. Results & Data ([facility]) Vital Signs (Past 12 Hours) Vital Signs Temp Pulse Pulse Resp BP Pulse Ox 12/30/19 15:39 98 H 12/30/19 15:00 36.6 C 83 16 93/66 L 91 12/30/19 11:00 36.8 C 87 18 99/63 L 91 12/30/19 08:45 97 H Laboratory Results Short CBC 12/29/19 12/30/19 Range/Units 17:16 05:21 WBC 6.51 5.20 (4.8-10.8) K/uL Hgb 8.7 L 7.5 L (14.0-18.0) g/dL Hct 29.0 L 24.9 L (42-52) % Plt Count 147 114 L (130-400) K/uL BMP 12/29/19 12/30/19 17:16 05:21 Sodium 138 137 Potassium 3.5 3.4 L Chloride 104 105 Carbon Dioxide 28 28 BUN 26 H 28 H Creatinine 1.24 1.22 Glucose 112 H 99 Calcium 8.5 8.0 L Cardiac Enzymes 12/29/19 Range/Units 17:16 Troponin I < 0.015 (0-0.045) ng/ml Liver Function 12/29/19 Range/Units 17:16 Total Bilirubin 0.8 (0.2-1) mg/dl AST 55 H (15-37) U/L ALT 11 L (12-78) U/L Alkaline Phosphatase 161 H (45-117) U/L Albumin 2.3 L (3.4-5.0) gm/dl Medications Administered Current Inpatient Medications Albuterol (Ventolin Hfa) 2 puffs INH DAILY PRN PRN Reason: Shortness Of Breath Stop: 01/28/20 21:07 Aspirin (Ecotrin Ectab) 81 mg PO QAM [facility] Stop: 01/29/20 08:59 Last Admin: 12/30/19 08:48 Dose: 81 mg Documented by: Atorvastatin Calcium (Lipitor) 40 mg PO PM FINN Stop: 01/28/20 21:07 Last Admin: 12/29/19 22:23 Dose: 40 mg Documented by: Finasteride (Proscar) 5 mg PO DAILY FINN Stop: 01/29/20 08:59 Last Admin: 12/30/19 08:48 Dose: 5 mg Documented by: Gabapentin (Neurontin) 300 mg PO TID [facility] Stop: 01/28/20 21:07 Last Admin: 12/30/19 13:22 Dose: 300 mg Documented by: Ceftriaxone Sodium 2,000 mg/ (Dextrose) 70 mls @ 100 mls/hr IV DAILY@2130 [facility]; Protocol Stop: 12/31/19 21:29 Last Infusion: 12/29/19 23:26 Dose: Infused Documented by: Furosemide 20 mg/ Syringe 2 mls @ 4 mls/min IV Q12 [facility] Stop: 01/28/20 21:44 Last Admin: 12/30/19 08:50 Dose: 4 mls/min Documented by: Insulin Aspart (Novolog Flexpen) 0 units SC ACHS [facility] Stop: 01/28/20 21:07 Last Admin: 12/30/19 13:21 Dose: Not Given Documented by: Lisinopril (Zestril) 5 mg PO DAILY [facility] Stop: 01/29/20 08:59 Last Admin: 12/30/19 08:49 Dose: 5 mg Documented by: Meclizine HCl (Antivert) 25 mg PO TID PRN PRN Reason: dizzyness Stop: 01/28/20 21:07 Multivitamins/Minerals (Multivitamin W/ Minerals Tab) 1 tab PO DAILY [facility] Stop: 01/29/20 08:59 Last Admin: 12/30/19 08:50 Dose: 1 tab Documented by: Nitroglycerin (Nitrostat) 0.4 mg SL UD PRN PRN Reason: Chest Pain Stop: 01/28/20 21:07 Ondansetron HCl (Zofran) 4 mg IV Q6H PRN PRN Reason: Nausea Stop: 01/28/20 21:07 Oxybutynin Chloride (Ditropan) 2.5 mg PO TID PRN PRN Reason: Pain Stop: 01/28/20 21:07 Last Admin: 12/30/19 08:49 Dose: 2.5 mg Documented by: Pantoprazole Sodium (Protonix) 40 mg PO DAILY [facility] Stop: 01/29/20 08:59 Last Admin: 12/30/19 08:48 Dose: 40 mg Documented by: Tamsulosin HCl (Flomax) 0.4 mg PO DAILY [facility] Stop: 01/29/20 08:59 Last Admin: 12/30/19 08:51 Dose: 0.4 mg Documented by: Tramadol HCl (Ultram) 50 mg PO Q12 PRN PRN Reason: Pain Stop: 01/28/20 21:07 Last Admin: 12/30/19 09:00 Dose: 50 mg Documented by: Vitamin D (Vitamin D3) 1,000 units PO DAILY FINN Stop: 01/29/20 08:59 Last Admin: 12/30/19 08:50 Dose: 1,000 units Documented by: (1) BPH (benign prostatic hyperplasia) Lower urinary tract symptom presence: unspecified whether lower urinary tract symptoms present Qualified Code(s): N40.0 - Benign prostatic hyperplasia without lower urinary tract symptoms
[2019-12-30] MEDS ORDERED: SODIUM CHLORIDE 0.9% 250 ML IV PRN (18:05)
[2019-12-30] MEDS ORDERED: FUROSEMIDE 40 MG in SYRINGE 0 ML IV SCH (18:30)
[2019-12-30] MEDS ORDERED: ACETAMINOPHEN 325 MG TAB PO SCH (18:30)
[2019-12-30] MEDS: cefTRIAXone SODIUM 2,000 MG in DEXTROSE 5% 50 ML IV SCH (21:01)
[2019-12-30] MEDS: ATORVASTATIN 40 MG TAB PO SCH (21:07)
[2019-12-31 07:52] LABS: Hematocrit (blood only) 30.1 % (42-52); Hemoglobin 9.4 g/dL (14.0-18.0); Mean Corpuscular Hgb Conc 31.2 g/dL (32-36); Mean Corpuscular Volume 76.8 fL (80-100); Mean Platelet Volume 9.4 fL (7.4-10.4); Platelet Count 113 K/uL (130-400); RDW Coefficient of Variation 16.6 % (11.5-14.5); RDW Standard Deviation 46.4 fL (36.4-46.3); Red Blood Count 3.92 M/uL (4.7-6.1); White Blood Count 5.53 K/uL (4.8-10.8)
[2019-12-31] MEDS: INSULIN ASPART 100 UNITS/ML 3 ML PEN SC SCH ×4 (07:57→20:50)
[2019-12-31] MEDS: PANTOprazole 40 MG TAB PO SCH (07:58)
[2019-12-31] MEDS: ASPIRIN 81 MG ECTAB PO SCH (07:58)
[2019-12-31] MEDS: GABAPENTIN 300 MG CAP PO SCH ×3 (07:59→20:45)
[2019-12-31] MEDS: TAMSULOSIN HCL 0.4 MG CAP PO SCH (07:59)
[2019-12-31] MEDS: CEROVITE ADV FORMULA TAB PO SCH (07:59)
[2019-12-31] MEDS: CHOLECALCIFEROL 1,000 UNITS 25 MCG TAB PO SCH (07:59)
[2019-12-31] MEDS: FINASTERIDE 5 MG TAB PO SCH (07:59)
[2019-12-31 08:26] LABS: BUN Creatinine Ratio 22.8 (10-20); Calcium 8.1 mg/dl (8.5-10.1); Creatinine Clr Calc Pharmacy 54.4 ml/min; Est GFR (African American) 63.5; Est GFR (Non-African American) 54.8; Potassium 3.8 mmol/L (3.5-5.1)
[2019-12-31] MEDS ORDERED: FUROSEMIDE 40 MG TAB PO SCH (10:30)
[2019-12-31] MEDS ORDERED: SPIRONOLACTONE 100 MG TAB PO SCH (10:30)
--- NOTE | 2019-12-31 10:51 | Emergency Department Note ---
Entered by Elizabeth Payne acting as a scribe for Otis Torres MD History of Present Illness General Chief complaint: Swelling/Edema to Extremity Stated complaint: FLUID/SWELLING IN FEET Time Seen by Provider: 12/29/19 16:43 Source: patient History of Present Illness Provider complaint: Swelling/Edema to Extremity Onset (ago): day(s) 3 Location: lower extremity Maximum Pain Intensity: 7 Relieved By: + none Exacerbated By: + none Associated symptoms: + denies other symptoms (No melena or hematuria), + cough, + shortness of breath and + other (Diarrhea, abdominal and back pain); no chest pain, no fever/chills and no nausea/vomiting The patient is a 59 year old male who presents to the Emergency Room with complaints of swelling/edema to extremity that began 3 days ago. The patient states that his symptoms are not relieved nor exacerbated by anything specific. The patient reports experiencing shortness of breath, a cough, and diarrhea. The patient also reports experiencing abdominal and back pain. The patient denies experiencing any melena, hematuria, chest pain, fever/chills, or nausea/vomiting. The patient notes that he got his tubes replaced last Monday a dalia Pendleton. Home Medications Home Medications Medication Instructions Recorded Confirmed Type aspirin 81 mg PO QAM 01/03/19 12/29/19 History atorvastatin 40 mg PO PM 01/03/19 12/29/19 History finasteride 5 mg PO DAILY 01/03/19 12/29/19 History gabapentin 300 mg PO TID 01/03/19 12/29/19 History nitroglycerin 1 dose SUBLINGUAL UD PRN 01/03/19 12/29/19 History omega 5-[id number]-[id number]-fish oil [Fish Oil] 1 cap PO BID 01/03/19 12/29/19 History tamsulosin 0.4 mg PO DAILY 01/03/19 12/29/19 History Multivitamin 50 Plus 1 tab PO DAILY 05/28/19 12/29/19 History albuterol sulfate [ProAir HFA] 2 puff INHALATION DAILY PRN 05/28/19 12/29/19 History cholecalciferol (vitamin D3) 1,000 unit PO DAILY 12/29/19 12/29/19 History [Vitamin D3] esomeprazole magnesium [Nexium] 20 mg PO DAILY 12/29/19 12/29/19 History furosemide [Lasix] 40 mg PO DAILY PRN 12/29/19 12/29/19 History glimepiride 4 mg PO QAM 12/29/19 12/29/19 History lisinopril 5 mg PO DAILY 12/29/19 12/29/19 History meclizine 25 mg PO TID PRN 12/29/19 12/29/19 History ondansetron HCl [Zofran] 4 mg PO Q6 PRN 12/29/19 12/29/19 History oxybutynin chloride 2.5 mg PO TID PRN 12/29/19 12/29/19 History tramadol [Ultram] 50 mg PO Q12 PRN 12/29/19 12/29/19 History Allergies Allergy/AdvReac Type Severity Reaction Status Date / Time Iodinated Contrast Media Allergy Mild rash? Verified 12/29/19 17:33 Past Med/Surg History Medical History Abdominal pain Acute urinary retention (Inactive) Acute UTI (Inactive) 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) BPH (benign prostatic hyperplasia) (Chronic) CAD (coronary artery disease) (Chronic) 12/1999-PCI to circumflex 03/2001-RCA stent 06/2001-LAD stent x 2 CHF (congestive heart failure) CKD (chronic kidney disease), stage III (Chronic) DM type 2 (diabetes mellitus, type 2) (Chronic) DVT prophylaxis Dyslipidemia (Chronic) Esophageal varices Robertson catheter problem (Inactive) GERD (gastroesophageal reflux disease) (Chronic) Hypertension (Chronic) Myocardial infarction N&V (nausea and vomiting) Thrombocytopenia Surgical History History of esophagogastroduodenoscopy (EGD) (Chronic) 12/2018-nonbleeding grade 2 esophageal varices, portal gastropathy History of tonsillectomy and adenoidectomy (Chronic) Family History Father Family history of diabetes mellitus Sister Family history of diabetes mellitus Mother Family history of esophageal cancer Social History Preferred Language: Occitan Communication Ability: Effective Telephone Service Representative Required: No Beliefs That Will Affect Care: None marital status: Current Living Situation: Spouse Feels Safe at Home: Yes Safety Concerns: Feels Safe At This Time Smoking Status: Former smoker Tobacco Type: cigarettes ; Do You Dip or Chew Tobacco: No ; Second Hand Exposure: No ; Hx Alcohol Use: No Hx Substance Use: No Review of Systems See HPI for pertinent positives & negatives. and A total of 10 systems reviewed and were otherwise negative Physical Exam Vital Signs Vital Signs - 24 hr 12/29/19 16:21 12/29/19 17:24 Temperature 36.7 C Temperature Source Oral Pulse Rate 82 Pulse Rate [Apical] 104 H Respiratory Rate 24 28 H Blood Pressure 130/95 Blood Pressure [Right Arm] 112/77 Blood Pressure Mean 106 Blood Pressure Mean [Right Arm] 88 Pulse Oximetry 98 95 Oxygen Delivery Method Room Air Sepsis Recent Fever Within 48 Hours No Sepsis Action Taken by Nursing No Action Required General: Chronically-ill appearing middle age male in no acute distress. HEENT: Normal cephalic atraumatic. Pupils are equal round and reactive to light. Extraocular movements are intact. Oropharynx is pink with moist mucous me mbranes. No swelling of the mouth lips or tongue. Neck: Supple with a midline trachea. No meningeal signs or stiffness, no JVD or bruits. No Stridor. Chest: Crackles in bases bilaterally. No wheezes or rhonchi. No increased work of breathing. Heart: regular rate and rhythm. Abdomen: Soft and mildly diffusely tender, distended without rebound guarding or rigidity. Extremities: No cyanosis clubbing or edema. No calf tenderness or asymmetry. 1+ bilateral extremity edema. Spine/Back. Non tender to palpation. No CVA tenderness. Bilateral percutaneous kidney drains, incision sites are red without pus drainage Skin: Good turgor without rashes. Neurologic exam: Cranial nerves two through 12 are intact. Motor and sensation are intact and symmetrical throughout. Course Course 1644: Past medical records reviewed. The patient was evaluated in room C09. A complete history and physical exam was performed. 1827: I reevaluated the patient and he appears uncomfortable. I ordered Lasixs and reviewed his labs. 1829: I spoke with Ani Salcedo PA-C about the patient's case and Dr. Castañeda- Hospitalist will accept the patient for further evaluation. Administered Medications Aspirin (Ecotrin Ectab) 81 mg PO TWYLA BRISENO Stop: 01/29/20 08:59 Last Admin: 12/31/19 07:58 Dose: 81 mg Documented by: [id number] Admin: 12/30/19 08:48 Dose: 81 mg Documented by: [id number] Atorvastatin Calcium (Lipitor) 40 mg PO PM [facility] Stop: 01/28/20 21:07 Last Admin: 12/30/19 21:07 Dose: 40 mg Documented by: [id number] Admin: 12/29/19 22:23 Dose: 40 mg Documented by: [id number] Finasteride (Proscar) 5 mg PO DAILY [facility] Stop: 01/29/20 08:59 Last Admin: 12/31/19 07:59 Dose: 5 mg Documented by: [id number] Admin: 12/30/19 08:48 Dose: 5 mg Documented by: [id number] Gabapentin (Neurontin) 300 mg PO TID [facility] Stop: 01/28/20 21:07 Last Admin: 12/31/19 07:59 Dose: 300 mg Documented by: [id number] Admin: 12/30/19 21:07 Dose: 300 mg Documented by: [id number] Admin: 12/30/19 13:22 Dose: 300 mg Documented by: [id number] Admin: 12/30/19 08:51 Dose: 300 mg Documented by: [id number] Admin: 12/29/19 22:22 Dose: 300 mg Documented by: [id number] Ceftriaxone Sodium 2,000 mg/ (Dextrose) 70 mls @ 100 mls/hr IV DAILY@2130 [facility]; Protocol Stop: 12/31/19 21:29 Last Infusion: 12/30/19 21:44 Dose: 0 mls/hr Documented by: [id number] Admin: 12/30/19 21:01 Dose: 100 mls/hr Documented by: [id number] Infusion: 12/29/19 23:26 Dose: 0 mls/hr Documented by: [id number] Admin: 12/29/19 22:21 Dose: 100 mls/hr Documented by: [id number] Insulin Aspart (Novolog Flexpen) 0 units SC ACHS [facility] Stop: 01/28/20 21:07 Last Admin: 12/31/19 07:57 Dose: Not Given Documented by: [id number] Cosigned by: [id number] Admin: 12/30/19 20:47 Dose: Not Given Documented by: [id number] Cosigned by: [id number] Admin: 12/30/19 18:05 Dose: 4 units Documented by: [id number] Cosigned by: [id number] Admin: 12/30/19 13:21 Dose: Not Given Documented by: [id number] Cosigned by: [id number] Admin: 12/30/19 08:51 Dose: Not Given Documented by: [id number] Cosigned by: [id number] Admin: 12/29/19 22:51 Dose: Not Given Documented by: [id number] Cosigned by: [id number] Lisinopril (Zestril) 5 mg PO DAILY [facility] Stop: 01/29/20 08:59 Last Admin: 12/30/19 08:49 Dose: 5 mg Documented by: [id number] Multivitamins/Minerals (Multivitamin W/ Minerals Tab) 1 tab PO DAILY [facility] Stop: 01/29/20 08:59 Last Admin: 12/31/19 07:59 Dose: 1 tab Documented by: [id number] Admin: 12/30/19 08:50 Dose: 1 tab Documented by: [id number] Oxybutynin Chloride (Ditropan) 2.5 mg PO TID PRN PRN Reason: Pain Stop: 01/28/20 21:07 Last Admin: 12/30/19 08:49 Dose: 2.5 mg Documented by: [id number] Pantoprazole Sodium (Protonix) 40 mg PO DAILY [facility] Stop: 01/29/20 08:59 Last Admin: 12/31/19 07:58 Dose: 40 mg Documented by: [id number] Admin: 12/30/19 08:48 Dose: 40 mg Documented by: [id number] Tamsulosin HCl (Flomax) 0.4 mg PO DAILY [facility] Stop: 01/29/20 08:59 Last Admin: 12/31/19 07:59 Dose: 0.4 mg Documented by: [id number] Admin: 12/30/19 08:51 Dose: 0.4 mg Documented by: [id number] Tramadol HCl (Ultram) 50 mg PO Q12 PRN PRN Reason: Pain Stop: 01/28/20 21:07 Last Admin: 12/30/19 19:22 Dose: 50 mg Documented by: [id number] Admin: 12/30/19 09:00 Dose: 50 mg Documented by: [id number] Admin: 12/29/19 22:41 Dose: 50 mg Documented by: [id number] Vitamin D (Vitamin D3) 1,000 units PO DAILY [facility] Stop: 01/29/20 08:59 Last Admin: 12/31/19 07:59 Dose: 1,000 units Documented by: [id number] Admin: 12/30/19 08:50 Dose: 1,000 units Documented by: [id number] Discontinued Medications Acetaminophen (Tylenol) 650 mg PO TODAY@1830 [facility] Stop: 12/30/19 23:59 Last Admin: 12/30/19 21:21 Dose: 650 mg Documented by: [id number] Diphenhydramine HCl (Benadryl Capsule) 25 mg PO TODAY@1830 [facility] Stop: 12/30/19 23:59 Last Admin: 12/30/19 21:22 Dose: 25 mg Documented by: [id number] Furosemide (Lasix) 20 mg IV NOW [facility] Stop: 12/29/19 18:26 Last Admin: 12/29/19 18:49 Dose: 20 mg Documented by: [id number] Furosemide 20 mg/ Syringe 2 mls @ 4 mls/min IV Q12 [facility] Stop: 01/28/20 21:44 Last Admin: 12/30/19 08:50 Dose: 4 mls/min Documented by: [id number] Admin: 12/29/19 22:21 Dose: 4 mls/min Documented by: [id number] Furosemide 40 mg/ Syringe 4 mls @ 4 mls/min IV TODAY@1830 [facility] Stop: 12/30/19 23:59 Last Admin: 12/31/19 02:46 Dose: 4 mls/min Documented by: [id number] Pneumococcal Polyvalent Vaccine (Pneumovax-23) 25 mcg IM .ONCE ONE Stop: 12/29/19 20:48 Last Admin: 12/30/19 09:23 Dose: Not Given Documented by: [id number] Medical Decision Making Differential Diagnosis Differential diagnosis includes: CHF, Liver failure, Renal failure, SBP, as well as others were entertained. Medical Records Attestation: I reviewed the patient's medical records. Home Medications Current Medication List: was personally reviewed by me Laboratory Data Attestation: I reviewed the patient's lab results. Result diagrams: 12/31/19 07:35 12/31/19 07:35 Lab Results 12/29/19 12/29/19 12/29/19 Range/Units 17:16 17:16 17:16 WBC 6.51 (4.8-10.8) K/uL RBC 3.78 L (4.7-6.1) M/uL Hgb 8.7 L (14.0-18.0) g/dL Hct 29.0 L (42-52) % MCV 76.7 L (80-100) fL MCH 23.0 L (25-34) pg MCHC 30.0 L (32-36) g/dL RDW Std Deviation 46.3 (36.4-46.3) fL RDW Coeff of Sudhakar 16.6 H (11.5-14.5) % Plt Count 147 (130-400) K/uL MPV 10.0 (7.4-10.4) fL Immature Gran % (Auto) 0.2 % Neut % (Auto) 78.7 % Lymph % (Auto) 5.7 % [place] % (Auto) 14.1 % Eos % (Auto) 1.1 % Baso % (Auto) 0.2 % Immature Gran # (Auto) 0.01 (0.00-0.02) K/uL Neut # (Auto) 5.13 (1.4-6.5) K/uL Lymph # (Auto) 0.37 L (1.2-3.4) K/uL [place] # (Auto) 0.92 H (0.11-0.59) K/uL Eos # (Auto) 0.07 (0-0.5) K/uL Baso # (Auto) 0.01 (0-0.2) K/uL PT 12.8 H (9.0-12.0) Seconds INR 1.3 H (0.9-1.1) APTT 26.4 (21.0-31.0) Seconds PTT Ratio 1.0 Sodium 138 (136-145) mmol/L Potassium 3.5 (3.5-5.1) mmol/L Chloride 104 (98-107) mmol/L Carbon Dioxide 28 (21-32) mmol/L Anion Gap 7.0 (3-11) BUN 26 H (7-18) mg/dl Creatinine 1.24 (0.6-1.4) mg/dl Est Cr Clr Drug Dosing Not Reportable Est GFR ( Amer) 72.3 Est GFR (Non-Af Amer) 62.4 BUN/Creatinine Ratio 21.2 H (10-20) Glucose 112 H (70-99) mg/dl Calcium 8.5 (8.5-10.1) mg/dl Total Bilirubin 0.8 (0.2-1) mg/dl AST 55 H (15-37) U/L ALT 11 L (12-78) U/L Alkaline Phosphatase 161 H (45-117) U/L Ammonia (11-32) umol/L Troponin I < 0.015 (0-0.045) ng/ml NT-Pro-B Natriuret Pep 666 (0-900) pg/ml Total Protein 6.8 (6.4-8.2) gm/dl Albumin 2.3 L (3.4-5.0) gm/dl Globulin 4.5 H (2.5-4.0) gm/dl Albumin/Globulin Ratio 0.5 L (0.9-2) Lipase 87 (73-393) U/L 12/29/19 Range/Units 17:16 WBC (4.8-10.8) K/uL RBC (4.7-6.1) M/uL Hgb (14.0-18.0) g/dL Hct (42-52) % MCV (80-100) fL MCH (25-34) pg MCHC (32-36) g/dL RDW Std Deviation (36.4-46.3) fL RDW Coeff of Sudhakar (11.5-14.5) % Plt Count (130-400) K/uL MPV (7.4-10.4) fL Immature Gran % (Auto) % Neut % (Auto) % Lymph % (Auto) % [place] % (Auto) % Eos % (Auto) % Baso % (Auto) % Immature Gran # (Auto) (0.00-0.02) K/uL Neut # (Auto) (1.4-6.5) K/uL Lymph # (Auto) (1.2-3.4) K/uL [place] # (Auto) (0.11-0.59) K/uL Eos # (Auto) (0-0.5) K/uL Baso # (Auto) (0-0.2) K/uL PT (9.0-12.0) Seconds INR (0.9-1.1) APTT (21.0-31.0) Seconds PTT Ratio Sodium (136-145) mmol/L Potassium (3.5-5.1) mmol/L Chloride (98-107) mmol/L Carbon Dioxide (21-32) mmol/L Anion Gap (3-11) BUN (7-18) mg/dl Creatinine (0.6-1.4) mg/dl Est Cr Clr Drug Dosing Est GFR ( Amer) Est GFR (Non-Af Amer) BUN/Creatinine Ratio (10-20) Glucose (70-99) mg/dl Calcium (8.5-10.1) mg/dl Total Bilirubin (0.2-1) mg/dl AST (15-37) U/L ALT (12-78) U/L Alkaline Phosphatase (45-117) U/L Ammonia 20.0 (11-32) umol/L Troponin I (0-0.045) ng/ml NT-Pro-B Natriuret Pep (0-900) pg/ml Total Protein (6.4-8.2) gm/dl Albumin (3.4-5.0) gm/dl Globulin (2.5-4.0) gm/dl Albumin/Globulin Ratio (0.9-2) Lipase (73-393) U/L Imaging Data Radiologist's Impression: Radiology results as stated below per my review and t he radiologist's interpretation: XR chest 1V portable HISTORY: Atypical Chest Pain COMPARISON: Chest 08/06/2019. FINDINGS: No pneumothorax. No pleural effusions. There is elevation of the left hemidiaphragm, unchanged. The heart remains mildly enlarged. There are linear densities within the left lung base suggestive of subsegmental atelectasis. There is mild central pulmonary vascular congestion without overt edema. This remains unchanged. IMPRESSION: 1. Elevation of the left hemidiaphragm with left basilar linear densities consistent with subsegmental atelectasis. 2. Stable mild cardiomegaly and mild central pulmonary vascular congestion without overt edema. ACT 112: Negative or not required by law. Electronically signed by: Ash Root M.D. 12/29/2019 6:01 PM ECG Data Indication: + other (Swelling/Edema to Extremity ) Rate (beats per minute): 107 Rhythm: + sinus tachycardia ECG ST segments: no ST depression and no ST elevation ECG Findings: + PACs, + PVCs and + Other (Poor baseline) Comparison ECG Date: from (08/06/2019) Change: the following changes noted (Ectopy is now present) Blood Pressure Blood Pressure Findings: Normal blood pressure Blood Pressure Disposition: further management by hospitalist PAULINO De Jesus This patient comes in as described above. He has a very complex medical history with history of cirrhosis/liver failure as well as kidney failure which was corrected with nephrostomy tubes. He has had increasing swelling over the last several days in his legs and his abdomen. Some mild abdominal tenderness. He also some mild shortness of breath. He has had no fever or chills. he had IV access established multiple blood testing was obtained. He has normal kidney function and has no significant electrolyte or metabolic abnormality. His liver functions are not significantly abnormal. His ammonia level is normal and clinically he does not appear to be encephalopathic. He was given some IV Lasix. he did take extra dose of Lasix at home. This could be from cardiac or liver or nutritional causes for his edema. I do think that he needs to be admitted/observed for diuresis and further evaluation. He may have some ascites as well which may need further evaluation. I have consulted the [facility] hospitalist to see him ER for these measures. Impression & Plan Lower extremity edema, SOB (shortness of breath), Acute liver failure, Ascites Discharge Plan Visit Data *Final* Discharge Date/Time: 12/29/19 20:05 Chief Complaint: Swelling/Edema to Extremity Stated Complaint: FLUID/SWELLING IN FEET ED Provider: Otis Torres Discharge Problem: Lower extremity edema, SOB (shortness of breath), Acute liver failure, Ascites Patient Disposition: Admitted As Inpatient Discharge Instructions Interventions: ED Discharge Assessment Last Done: 12/29/19 20:05 Discharge Problem: Acute liver failure Qualifiers: Hepatic coma status: without hepatic coma Qualified Code(s): K72.00 - Acute and subacute hepatic failure without coma Ascites Qualifiers: Ascites type: other type Qualified Code(s): R18.8 - Other ascites The scribe's documentation has been prepared under my direction and personally reviewed by me in its entirety. I confirm that the note above accurately reflects all work, treatment, procedures, and medical decision making performed by me.
[2019-12-31] MEDS: ONDANSETRON INJ 2 MG/ML 2 ML VIAL IV PRN (11:01)
--- NOTE | 2019-12-31 12:29 | Electrocardiogram Report ---
Test Reason : Blood Pressure : / mmHG Vent. Rate : 089 BPM Atrial Rate : 089 BPM P-R Int : 146 ms QRS Dur : 096 ms QT Int : 354 ms P-R-T Axes : 043 009 053 degrees QTc Int : 430 ms Sinus rhythm with sinus arrhythmia with occasional Premature ventricular complexes Low voltage QRS Cannot rule out Inferior infarct (cited on or before 29-DEC-2019) Nonspecific ST and T wave abnormality Abnormal ECG When compared with ECG of 30-DEC-2019 06:47, No significant change was found Confirmed by Jordi Winter ([id number]) on 12/31/2019 12:28:56 PM Referred By: REFERRED SELF Confirmed By:Jordi Winter
--- NOTE | 2019-12-31 12:54 | Gastroenterology Progress Note ---
Date of Service December 31, 2019 Assessment & Plan (1) Alcoholic cirrhosis of liver with ascites: 1. Recommend restarting diuretics, low-dose: Furosemide 20, Spironolactone 50 each daily. 2. Patient prefers to avoid paracentesis. 3. Low-salt diet reviewed. Patient verifies that he is compliant. 4. Most recent EGD was Dec 2018. I sent an [employer] staff message to Dr. Leon regarding pt's anemia w/o gross bleeding, asking her opinion on the best time for surveillance EGD and will arrange according. 5. No further GI procedures/testing planned. 6. GI will sign off. Please notify us if new/worsening GI issues. Present on Admission?: Yes Supervising Physician Co-Signing Physician Notes I have personally seen and examined the patient with JE Meyers. Her note reflects my exam and findings. I agree with her impression and plan. Starting to respond to diuretics. Stable for out patient follow up from a GI perspective. Freddy Cabezas M.D. Subjective Mr. 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 He had not been taking diuretics regularly. Liver ultrasound without discrete lesion, Doppler without hepatic or PVT. Moderate ascites but patient prefers to avoid paracentesis as his initial one was painful. Today he appears well, still some weakness but able to ambulate with assistance, tells me he is eating well. SOB present prior to admission resolved. Peripheral edema is improved after inpatient furosemide given. Hb 8->7 +2 units RBC =-> 9.4 today. BUN 31, Cr 1.38. No gross bleeding.Pt tells me that BMs are brown, loose. Review of Systems 2 Review of Systems: ROS: Gen: Improved weakness; no fevers, no weight loss Eyes: No eye redness, or pain, no recent vision changes Resp: SOB resolved, no cough Cardio: No palpitations/irregular beats, no chest pain GI: See HPI : Denies pain on urination Skin: No jaundice, itching or new rashes Ext: mild LLL edema (was present bilat, now improved). Physical Exam Constitutional: WD/WN, vitals as above Eyes: PERRL, conjunctivae normal, anicteric sclerae ENMT: external ear and nose normal, oropharynx normal Neck: trachea midline, no thyromegaly Respiratory: normal respiratory effort Auscultation: + crackles (few at both bases) Cardiovascular: Rate/Rhythm: regular rate and regular rhythm Extremities: + edema (1+ LLL (pt states this is chronically more edematous than the right)) Gastrointestinal (Abdomen): Inspection/Auscultation: + abdomen distended (moderate, non tense ascites) Musculoskeletal: some general weakness, no focal weakness or ROM limitations Skin: no rashes, warm and dry no jaundice Neurologic: PERRL, EOMI, accommodation nl, no face palsy, no dysarthria no asterix Psychiatric: A+Ox3, euthymic affect Lymphatic: no cervical or axillary lymphadenopathy Results & Data Vital Signs (Past 12 Hours) Vital Signs Temp Pulse Pulse Resp BP BP Pulse Ox 12/31/19 11:50 37.1 C 91 H 18 116/78 93 12/31/19 09:37 86 12/31/19 07:52 36.8 C 89 18 116/78 90 12/31/19 06:31 36.7 C 87 113/77 93 12/31/19 05:45 36.8 C 77 20 104/71 94 12/31/19 04:45 36.8 C 86 20 112/75 95 12/31/19 04:15 36.7 C 77 87 18 100/68 96/63 L 96 12/31/19 03:45 36.6 C 86 18 107/70 94 12/31/19 03:29 36.6 C 87 18 108/62 93 12/31/19 03:13 36.7 C 88 20 102/71 91 12/31/19 01:45 36.8 C 89 16 95/62 L 91 12/31/19 01:34 36.7 C 88 18 93/61 L 92 12/31/19 01:04 36.9 C 91 H 18 92/57 L 87 L Laboratory Results WBC 5, hemoglobin 9.4 after 2 unit transfusion of red blood cells, hematocrit 30, platelets 113, INR 1.3, sodium 135, potassium 3.8, BUN 31, creatinine 1.38, glucose 85 Diagnostic Findings Doppler ultrasound without hepatic or portal vein thrombosis Liver ultrasound with small to moderate ascites, cirrhosis without discrete lesion
[2019-12-31] MEDS: TRAMADOL HCL 50 MG TABLET PO PRN (13:03)
--- NOTE | 2019-12-31 18:56 | Hospitalist Progress Note ---
Date of Service December 31, 2019 Assessment & Plan (1) Alcoholic cirrhosis of liver with ascites: Patient with a history of cirrhosis who was previously on diuretics then subsequently taken off secondary to acute renal failure from obstructive uropathy. Nephrostomy tubes are now in place patient is making good urine and is back to his baseline renal function. P.o. diuretics were restarted today. As abdomen is more protuberant and full and albumin is less than 2.5, will start him on albumin 25% three times daily to help shift this fluid. Continue close monitoring of renal function and uptitrate diuretics as outpatient. Continue Rocephin per GI recommendations. No paracentesis was performed this admission for various reasons. May need to consider large volume paracentesis if abdomen continues to fill with fluid. (2) Anemia: No acute blood loss. Patient with chronic comorbidities. High risk for bleeding in setting of cirrhosis with esophageal varices. Defer to GI for further monitoring with EGD. Appropriate response to 2 units of blood overnight. (3) Esophageal varices: The patient has no reports of GI bleeding or black stools. As heart rate is now in the 90s will start a trial of low dose propanolol. The patient is currently not on a beta-nj and was previously on Coreg, which was stopped for hypotension during a prior hospitalization. (4) CKD (chronic kidney disease), stage III: At baseline kidney function. Restart diuretics now and continue to monitor. Will hold lisinopril during trial of diuretics so as not to impair kidney function any further. Patient is also hypotensive at this time. (5) Hypotension: Borderline rest blood pressures. Continue holding lisinopril (6) BPH (benign prostatic hyperplasia): Per urology notes available, patient is too sick to consider TURP. He is followed by urology as outpatient, and this may be considered down the road when he is more optimized. (7) DM type 2 (diabetes mellitus, type 2): Continue with NovoLog correction factor insulin only. Monitor blood sugars closely. (8) Thrombocytopenia: Related to chronic cirrhosis. No active bleeding noted. (9) DVT prophylaxis: SCDs, relatively contraindicated in setting of anemia with thrombocytopenia Full code Disposition-continue hospitalization while monitoring renal function closely for the next few days. Marily Murguia DO [facility] Hospitalist Subjective Patient is feeling well today. Received blood overnight with appropriate improvement in H&H. Abdomen appears more tense and he reports he feels this is more full of fluid today. There is some abdominal discomfort where the skin is being stretched. He is otherwise tolerating p.o. and doing well. Review of Systems Review of Systems: All systems reviewed & are unremarkable except as noted in Subjective Physical Exam Physical Exam: CONSTITUTIONAL: WNWD, vitals as above, generally well- appearing EYES: normal conjunctivae, no scleral icterus ENT: MMM RESPIRATORY: clear to auscultation bilaterally, no crackles, rales or wheezes, normal respiratory effort CARDIOVASCULAR: regular rate and rhythm, S1 and 2 heard without murmurs, gallops or rubs, no JVD, no peripheral edema GASTROINTESTINAL: Soft, nontender, protuberant, more distended and skin is more tense than yesterday MUSCULOSKELETAL: strength 5/5 throughout, head is normocephalic and atraumatic SKIN: warm and dry, some brownish coloration to the back of the neck and the lower abdomen. Nephrostomy tubes are in place bilaterally NEUROLOGIC: CN 2-12 grossly intact, no sensory deficit, normal cognition, PSYCHIATRIC: alert cooperative and oriented to person, place and time. Results & Data ([facility]) Vital Signs (Past 12 Hours) Vital Signs Temp Pulse Pulse Resp BP Pulse Ox 12/31/19 15:38 94 H 12/31/19 14:54 37.5 C 93 H 18 136/76 93 12/31/19 11:50 37.1 C 91 H 18 116/78 93 12/31/19 09:37 86 12/31/19 07:52 36.8 C 89 18 116/78 90 Laboratory Results Short CBC 12/31/19 Range/Units 07:35 WBC 5.53 (4.8-10.8) K/uL Hgb 9.4 L (14.0-18.0) g/dL Hct 30.1 L (42-52) % Plt Count 113 L (130-400) K/uL BMP 12/31/19 07:35 Sodium 135 L Potassium 3.8 Chloride 102 Carbon Dioxide 27 BUN 31 H Creatinine 1.38 Glucose 85 Calcium 8.1 L Medications Administered Current Inpatient Medications Albuterol (Ventolin Hfa) 2 puffs INH DAILY PRN PRN Reason: Shortness Of Breath Stop: 01/28/20 21:07 Aspirin (Ecotrin Ectab) 81 mg PO QAM [facility], [facility]1983 Stop: 01/29/20 08:59 Last Admin: 12/31/19 07:58 Dose: 81 mg Documented by: Atorvastatin Calcium (Lipitor) 40 mg PO PM [facility], [facility]1983 Stop: 01/28/20 21:07 Last Admin: 12/31/19 20:44 Dose: 40 mg Documented by: Finasteride (Proscar) 5 mg PO DAILY [facility], [facility]1983 Stop: 01/29/20 08:59 Last Admin: 12/31/19 07:59 Dose: 5 mg Documented by: Furosemide (Lasix) 20 mg PO QAM [facility], [facility]1983 Stop: 01/31/20 08:59 Gabapentin (Neurontin) 300 mg PO TID [facility], [facility]1983 Stop: 01/28/20 21:07 Last Admin: 12/31/19 20:45 Dose: 300 mg Documented by: Albumin Human (Albumin 25%) 50 mls @ 50 mls/hr IV TID [facility], 1928–1983; Protocol Stop: 01/02/20 14:59 Last Infusion: 12/31/19 21:49 Dose: Infused Documented by: Insulin Aspart (Novolog Flexpen) 0 units SC ACHS [facility], [facility]1983 Stop: 01/28/20 21:07 Last Admin: 12/31/19 20:50 Dose: 1 units Documented by: Lisinopril (Zestril) 5 mg PO DAILY [facility]1983 Stop: 01/29/20 08:59 Last Admin: 12/30/19 08:49 Dose: 5 mg Documented by: Meclizine HCl (Antivert) 25 mg PO TID PRN PRN Reason: dizzyness Stop: 01/28/20 21:07 Last Admin: 12/31/19 11:01 Dose: 25 mg Documented by: Multivitamins/Minerals (Multivitamin W/ Minerals Tab) 1 tab PO DAILY [facility]1983 Stop: 01/29/20 08:59 Last Admin: 12/31/19 07:59 Dose: 1 tab Documented by: Nitroglycerin (Nitrostat) 0.4 mg SL UD PRN PRN Reason: Chest Pain Stop: 01/28/20 21:07 Ondansetron HCl (Zofran) 4 mg IV Q6H PRN PRN Reason: Nausea Stop: 01/28/20 21:07 Last Admin: 12/31/19 11:01 Dose: 4 mg Documented by: Oxybutynin Chloride (Ditropan) 2.5 mg PO TID PRN PRN Reason: Pain Stop: 01/28/20 21:07 Last Admin: 12/30/19 08:49 Dose: 2.5 mg Documented by: Pantoprazole Sodium (Protonix) 40 mg PO DAILY FINN Stop: 01/29/20 08:59 Last Admin: 12/31/19 07:58 Dose: 40 mg Documented by: Spironolactone (Aldactone) 50 mg PO QAM FINN Stop: 01/31/20 08:59 Tamsulosin HCl (Flomax) 0.4 mg PO DAILY FINN Stop: 01/29/20 08:59 Last Admin: 12/31/19 07:59 Dose: 0.4 mg Documented by: Tramadol HCl (Ultram) 50 mg PO Q12 PRN PRN Reason: Pain Stop: 01/28/20 21:07 Last Admin: 12/31/19 13:03 Dose: 50 mg Documented by: Vitamin D (Vitamin D3) 1,000 units PO DAILY FINN Stop: 01/29/20 08:59 Last Admin: 12/31/19 07:59 Dose: 1,000 units Documented by: (1) BPH (benign prostatic hyperplasia) Lower urinary tract symptom presence: unspecified whether lower urinary tract symptoms present Qualified Code(s): N40.0 - Benign prostatic hyperplasia without lower urinary tract symptoms
[2019-12-31] MEDS: ATORVASTATIN 40 MG TAB PO SCH (20:44)
[2019-12-31] MEDS: ALBUMIN 25% 50 ML IV SCH (20:46)
[2019-12-31] MEDS: PROPRANOLOL HCL 10 MG TAB PO SCH (23:30)
[2020-01-01] MEDS: TRAMADOL HCL 50 MG TABLET PO PRN (01:09)
[2020-01-01 06:21] LABS: Hematocrit (blood only) 33.3 % (42-52); Hemoglobin 10.5 g/dL (14.0-18.0); Mean Corpuscular Hemoglobin 24.7 pg (25-34); Mean Corpuscular Hgb Conc 31.5 g/dL (32-36); Mean Corpuscular Volume 78.4 fL (80-100); Mean Platelet Volume 9.2 fL (7.4-10.4); Platelet Count 129 K/uL (130-400); RDW Coefficient of Variation 16.7 % (11.5-14.5); RDW Standard Deviation 47.8 fL (36.4-46.3); Red Blood Count 4.25 M/uL (4.7-6.1); White Blood Count 6.16 K/uL (4.8-10.8)
[2020-01-01 06:31] LABS: INR 1.2 (0.9-1.1); Prothrombin Time 12.5 Seconds (9.0-12.0)
[2020-01-01 06:58] LABS: Albumin Level 2.2 gm/dl (3.4-5.0); BUN Creatinine Ratio 23.9 (10-20); Bilirubin Direct 0.3 mg/dl (0-0.2); Calcium 8.2 mg/dl (8.5-10.1); Creatinine Clr Calc Pharmacy 58.6 ml/min; Est GFR (African American) 69.5
[2020-01-01 07:01] LABS: Bilirubin,Total 0.8 mg/dl (0.2-1); Total Protein 6.8 gm/dl (6.4-8.2)
[2020-01-01] MEDS: TAMSULOSIN HCL 0.4 MG CAP PO SCH (07:57)
[2020-01-01] MEDS: PANTOprazole 40 MG TAB PO SCH (07:58)
[2020-01-01] MEDS: ASPIRIN 81 MG ECTAB PO SCH (07:58)
[2020-01-01] MEDS: CHOLECALCIFEROL 1,000 UNITS 25 MCG TAB PO SCH (07:59)
[2020-01-01] MEDS: FINASTERIDE 5 MG TAB PO SCH (07:59)
[2020-01-01] MEDS: SPIRONOLACTONE 25 MG TAB PO SCH (08:00)
[2020-01-01] MEDS: CEROVITE ADV FORMULA TAB PO SCH (08:03)
[2020-01-01] MEDS: FUROSEMIDE 20 MG TAB PO SCH (08:03)
[2020-01-01] MEDS: GABAPENTIN 300 MG CAP PO SCH ×3 (08:03→21:06)
[2020-01-01] MEDS: PROPRANOLOL HCL 10 MG TAB PO SCH ×3 (08:04→21:07)
[2020-01-01] MEDS: INSULIN ASPART 100 UNITS/ML 3 ML PEN SC SCH ×4 (08:06→21:08)
--- NOTE | 2020-01-01 08:26 | Communication Note ---
Date of Service: January 01, 2020 I discussed this pt with Dr. Leon who has directed the OP care of his liver disease. Her recommendation regarding his anemia is to set up OP EGD at [facility] in the next month. The EGD order was placed in his OP EPIC chart. Schedulers will reach out to arrange. Pt is aware.
[2020-01-01] MEDS: ALBUMIN 25% 50 ML IV SCH ×3 (08:44→21:08)
[2020-01-01] MEDS ORDERED: LACTULOSE SYRUP 20 GM/30 ML UDC PO ONE (11:30)
--- NOTE | 2020-01-01 12:25 | Hospitalist Progress Note ---
Date of Service January 01, 2020 Assessment & Plan (1) Alcoholic cirrhosis of liver with ascites: Large tense ascites, after multiple discussion patient is willing to go for paracentesis Had last time ascitic fluid drained approximately 6 months back Renal function improved to baseline, outpatient diuretics Aldactone and Lasix resumed Appreciate input from gastroenterology (2) Anemia: No acute blood loss. Globin improved/adequate correction after 2 units of PRBC transfusion(hb 7.5 improved to 10.5 Possible anemia of chronic disease due to multiple comorbidities High risk for bleeding/esophageal varices in setting of cirrhosis Appreciate input from GI, outpatient EGD will be scheduled (3) Esophageal varices: The patient has no reports of GI bleeding or black stools. Started on propanolol Outpatient follow-up with GI for EGD surveillance (4) CKD (chronic kidney disease), stage III: Renal function improved to approximate baseline Resume diuretics (5) Hypotension: Borderline low blood pressure: Secondary to advanced liver disease Diuretics resumed with holding parameters (6) BPH (benign prostatic hyperplasia): History of BPH causing urinary retention, status post bilateral nephrostomy tube placed at [facility] Follows with urology Dr. Magali Whiting at [facility] Patient was thought to be high risk for TURP procedure-advanced liver disease, coagulopathies/bleeding risk (7) DM type 2 (diabetes mellitus, type 2): Continue with NovoLog correction factor insulin (8) Thrombocytopenia: Related to chronic cirrhosis. No active bleeding noted. Avoid antiplatelets, anticoagulation (9) DVT prophylaxis: SCDs, relatively contraindicated in setting of anemia with thrombocytopenia Full code Disposition: Patient is agreeable for therapeutic paracentesis today, To be discharged home when medically stable, Present at bedside, updated Subjective Discussed with patient willing for paracethesis today order placed for theraputic paracenthesis - Review of Systems Review of Systems: All systems reviewed & are unremarkable except as noted in HPI & below Gastrointestinal: no abdominal pain and no nausea Abdominal distention/ascites Physical Exam Constitutional: WD/WN, vitals as above no acute distress Eyes: PERRL, conjunctivae normal, anicteric sclerae ENMT: external ear and nose normal, oropharynx normal Neck: trachea midline, no thyromegaly Respiratory: normal respiratory effort, lungs clear to auscultation Cardiovascular: RRR, no murmur, no edema Gastrointestinal (Abdomen): Inspection/Auscultation: + abdomen distended Percussion/Palpation: abdomen soft and + ascites Musculoskeletal: no cyanosis or clubbing, extremities motor strength 5/5 Neurologic: PERRL, EOMI, accommodation nl, no face palsy, no dysarthria Psychiatric: A+Ox3, euthymic affect Results & Data ([facility]) Vital Signs (Past 12 Hours) Vital Signs Temp Pulse Resp BP BP Pulse Ox 01/01/20 11:41 37.2 C 81 16 108/69 94 01/01/20 09:22 107/66 94 01/01/20 08:20 37.3 C 81 12 01/01/20 07:14 37.2 C 73 20 116/76 94 01/01/20 04:00 37.2 C 79 20 108/69 92 (1) BPH (benign prostatic hyperplasia) Lower urinary tract symptom presence: unspecified whether lower urinary tract symptoms present Qualified Code(s): N40.0 - Benign prostatic hyperplasia without lower urinary tract symptoms
--- NOTE | 2020-01-01 14:27 | Ultrasound Report ---
PARACENTESIS UNDER ULTRASOUND GUIDANCE CLINICAL HISTORY: Cirrhosis and ascites. COMPARISON STUDY: Abdominal ultrasound dated 06/25/2019. PROCEDURE: The risks, benefits, and alternatives to the procedure were discussed with the patient who voiced understanding. Written informed consent was obtained. Following real-time ultrasound localiza tion of a suitable pocket of fluid the right lower quadrant, the abdomen was prepped and draped in th e usual sterile fashion. The skin and soft tissues were anesthetized with 1% lidocaine. The sheathed paracentesis needle was inserted and approximately 5 liters of straw-colored ascitic fluid was remove d by vacuum suction. The procedure was well tolerated and without immediate complication. The patient left the department in satisfactory condition. IMPRESSION: Successful ultrasound-guided paracentesis with removal of approximately 5 liters of ascit ic fluid. ACT 112: Negative or not required by law. Electronically signed by: Luan Bennett M.D. 01/01/2020 2:26 PM
[2020-01-01] MEDS ORDERED: LACTULOSE SYRUP 20 GM/30 ML UDC PO PRN (19:00)
[2020-01-01] MEDS: ATORVASTATIN 40 MG TAB PO SCH (21:07)
[2020-01-01] MEDS: ONDANSETRON INJ 2 MG/ML 2 ML VIAL IV PRN (23:31)
[2020-01-02] MEDS: GUAIFENESIN/CODEINE 100MG/10MG 5ML UDC PO PRN ×2 (01:29→19:48)
[2020-01-02] MEDS: GABAPENTIN 300 MG CAP PO SCH ×3 (08:14→21:27)
[2020-01-02] MEDS: TAMSULOSIN HCL 0.4 MG CAP PO SCH (08:14)
[2020-01-02] MEDS: FUROSEMIDE 20 MG TAB PO SCH (08:14)
[2020-01-02] MEDS: PANTOprazole 40 MG TAB PO SCH (08:15)
[2020-01-02] MEDS: SPIRONOLACTONE 25 MG TAB PO SCH (08:15)
[2020-01-02] MEDS: ASPIRIN 81 MG ECTAB PO SCH (08:15)
[2020-01-02] MEDS: PROPRANOLOL HCL 10 MG TAB PO SCH ×3 (08:15→21:27)
[2020-01-02] MEDS: CEROVITE ADV FORMULA TAB PO SCH (08:15)
[2020-01-02] MEDS: CHOLECALCIFEROL 1,000 UNITS 25 MCG TAB PO SCH (08:16)
[2020-01-02] MEDS: FINASTERIDE 5 MG TAB PO SCH (08:16)
[2020-01-02 08:30] LABS: BUN Creatinine Ratio 23.7 (10-20); Calcium 8.5 mg/dl (8.5-10.1); Creatinine Clr Calc Pharmacy 66.4 ml/min; Est GFR (African American) 80.9; Est GFR (Non-African American) 69.8; Potassium 3.9 mmol/L (3.5-5.1)
[2020-01-02] MEDS: ALBUMIN 25% 50 ML IV SCH ×2 (08:30→14:06)
[2020-01-02] MEDS: INSULIN ASPART 100 UNITS/ML 3 ML PEN SC SCH ×4 (08:54→21:28)
[2020-01-02] MEDS: TRAMADOL HCL 50 MG TABLET PO PRN ×2 (14:06→22:02)
--- NOTE | 2020-01-02 18:27 | Hospitalist Progress Note ---
Date of Service January 02, 2020 Assessment & Plan (1) Alcoholic cirrhosis of liver with ascites: Admitted with large large tense ascites, after multiple discussion patient is willing to go for paracentesis Status post paracentesis on 01/01/2020 with drainage of approximately 5 L of ascitic fluid Patient reports immediate improvement after paracentesis Acute renal failure resolved, renal function to baseline, Added Aldactone 25 mg daily, Lasix dose reduced to 20 mg daily(was on 40 mg dena ly) Appreciate input from gastroenterology Outpatient GI follow-up scheduled in 3 months (2) Anemia: No acute blood loss. Globin improved/adequate correction after 2 units of PRBC transfusion(hb 7.5 improved to 10.5 H&H remains a stable Possible anemia of chronic disease due to multiple comorbidities High risk for bleeding/esophageal varices in setting of cirrhosis Patient is asked to avoid NSAIDs Appreciate input from GI, outpatient EGD will be scheduled (3) Esophageal varices: The patient has no reports of GI bleeding or black stools. Started on propanolol Outpatient follow-up with GI for EGD surveillance (4) CKD (chronic kidney disease), stage III: Renal function improved to approximate baseline Resume diuretics (5) Hypotension: Borderline low blood pressure: Secondary to advanced liver disease No sign symptoms of dizzy spell lightheadedness (6) BPH (benign prostatic hyperplasia): History of BPH causing severe urinary retention, Follows with urology Dr. Shruthi Whiting at [facility] Patient was thought to be high risk for TURP procedure-advanced liver disease, coagulopathies/bleeding risk status post bilateral nephrostomy tube placed at [facility] Patient follows with [facility] intervention radiology for exchange of nephrostomy tube Next appointment scheduled on 04/02/2020 (7) DM type 2 (diabetes mellitus, type 2): NovoLog correction factor insulin (8) Thrombocytopenia: Related to chronic cirrhosis. No active bleeding noted. Avoid antiplatelets, anticoagulation (9) DVT prophylaxis: SCDs, relatively contraindicated in setting of anemia with thrombocytopenia Full code Disposition: Plan to discharge home tomorrow Subjective Feels much better after large amount of paracentesis yesterday, shortness of breath/abdominal distention Complains of nonproductive cough which has been chronic usually takes as needed Robitussin at home- ordered No fever or chills, no nausea vomiting or abdominal pain Review of Systems Gastrointestinal: Abdominal distention/ascites-improved Physical Exam Constitutional: WD/WN, vitals as above no acute distress Eyes: PERRL, conjunctivae normal, anicteric sclerae ENMT: external ear and nose normal, oropharynx normal Neck: trachea midline, no thyromegaly Respiratory: normal respiratory effort and + cough; no respiratory distress Auscultation: + crackles and + rales (Bibasilar Rales) Cardiovascular: RRR, no murmur, no edema Gastrointestinal (Abdomen): Inspection/Auscultation: + abdomen distended Percussion/Palpation: abdomen soft and + ascites Musculoskeletal: no cyanosis or clubbing, extremities motor strength 5/5 Neurologic: PERRL, EOMI, accommodation nl, no face palsy, no dysarthria Psychiatric: A+Ox3, euthymic affect Results & Data ([facility]) Vital Signs (Past 12 Hours) Vital Signs Temp Pulse Pulse Resp BP Pulse Ox 01/02/20 16:13 79 01/02/20 15:48 36.7 C 73 18 107/63 93 01/02/20 12:00 36.8 C 72 18 111/71 95 01/02/20 08:00 36.6 C 76 69 18 121/79 96 (1) BPH (benign prostatic hyperplasia) Lower urinary tract symptom presence: unspecified whether lower urinary tract symptoms present Qualified Code(s): N40.0 - Benign prostatic hyperplasia without lower urinary tract symptoms
[2020-01-02] MEDS ORDERED: GUAIFENESIN/DEXTROM SYRUP 100MG/10MG 5ML UDC PO PRN (19:16)
[2020-01-02] MEDS: ATORVASTATIN 40 MG TAB PO SCH (21:27)
[2020-01-03 07:01] LABS: Calcium 8.4 mg/dl (8.5-10.1); Creatinine Clr Calc Pharmacy 68.9 ml/min; Est GFR (African American) 84.5; Est GFR (Non-African American) 72.9
[2020-01-03] MEDS: ASPIRIN 81 MG ECTAB PO SCH (08:12)
[2020-01-03] MEDS: CHOLECALCIFEROL 1,000 UNITS 25 MCG TAB PO SCH (08:13)
[2020-01-03] MEDS: PANTOprazole 40 MG TAB PO SCH (08:13)
[2020-01-03] MEDS: SPIRONOLACTONE 25 MG TAB PO SCH (08:13)
[2020-01-03] MEDS: FINASTERIDE 5 MG TAB PO SCH (08:13)
[2020-01-03] MEDS: CEROVITE ADV FORMULA TAB PO SCH (08:14)
[2020-01-03] MEDS: TAMSULOSIN HCL 0.4 MG CAP PO SCH (08:14)
[2020-01-03] MEDS: FUROSEMIDE 20 MG TAB PO SCH (08:14)
[2020-01-03] MEDS: PROPRANOLOL HCL 10 MG TAB PO SCH ×2 (08:15→13:54)
[2020-01-03] MEDS: GABAPENTIN 300 MG CAP PO SCH ×2 (08:15→13:55)
[2020-01-03] MEDS: INSULIN ASPART 100 UNITS/ML 3 ML PEN SC SCH ×2 (08:42→12:09)
--- NOTE | 2020-01-03 12:41 | Hospitalist Progress Note ---
Date of Service January 03, 2020 Assessment & Plan (1) Alcoholic cirrhosis of liver with ascites: Admitted with large large tense ascites, after multiple discussion patient is willing to go for paracentesis Status post paracentesis on 01/01/2020 with drainage of approximately 5 L of ascitic fluid Patient reports immediate improvement after paracentesis Acute renal failure resolved, renal function to baseline, Added Aldactone 25 mg daily, Lasix dose reduced to 20 mg daily(was on 40 mg dena ly) Appreciate input from gastroenterology Outpatient GI follow-up scheduled in 3 months Patient is stable to be discharged home today (2) Anemia: No acute blood loss. Globin improved/adequate correction after 2 units of PRBC transfusion(hb 7.5 improved to 10.5 H&H remains a stable Possible anemia of chronic disease due to multiple comorbidities High risk for bleeding/esophageal varices in setting of cirrhosis Patient is asked to avoid NSAIDs Appreciate input from GI, outpatient EGD will be scheduled by GI team (3) Esophageal varices: The patient has no reports of GI bleeding or black stools. Started on propanolol Outpatient follow-up with GI for EGD surveillance Patient is asked to avoid NSAIDs (4) CKD (chronic kidney disease), stage III: Renal function improved to approximate baseline On Aldactone 25 mg daily/Lasix dose reduced to 20 mg daily Renal function remains stable (5) Hypotension: Borderline low blood pressure: Secondary to advanced liver disease No sign symptoms of dizzy spell lightheadedness (6) BPH (benign prostatic hyperplasia): History of BPH causing severe urinary retention, Follows with urology Dr. Shruthi Whiting at [facility] Patient was thought to be high risk for TURP procedure-advanced liver disease, coagulopathies/bleeding risk status post bilateral nephrostomy tube placed at [facility] Patient follows with [facility] intervention radiology for exchange of nephrostomy tube Next appointment scheduled on 04/02/2020 (7) DM type 2 (diabetes mellitus, type 2): NovoLog correction factor insulin (8) Thrombocytopenia: Related to chronic cirrhosis. No active bleeding noted. Avoid antiplatelets, anticoagulation (9) DVT prophylaxis: SCDs, relatively contraindicated in setting of anemia with thrombocytopenia Full code Disposition: Stable to be discharged home today Subjective Patient reports of feeling well, Cough has improved with PRN Robitussin-which patient takes at home as well No complain of abdominal pain, breathing much better after paracentesis No fever or chills, Appetite fair Eager to be discharged home today Review of Systems Respiratory: + cough (Dry nonproductive/chronic); no dyspnea on exertion and no wheezing Gastrointestinal: Abdominal distention/ascites-improved Physical Exam Constitutional: WD/WN, vitals as above no acute distress Eyes: PERRL, conjunctivae normal, anicteric sclerae ENMT: external ear and nose normal, oropharynx normal Neck: trachea midline, no thyromegaly Respiratory: normal respiratory effort, lungs clear to auscultation normal respiratory effort and + cough; no respiratory distress Auscultation: + crackles and + rales (Bibasilar Rales) Cardiovascular: RRR, no murmur, no edema Gastrointestinal (Abdomen): Inspection/Auscultation: + abdomen distended Percussion/Palpation: abdomen soft and + ascites Musculoskeletal: no cyanosis or clubbing, extremities motor strength 5/5 Neurologic: PERRL, EOMI, accommodation nl, no face palsy, no dysarthria Psychiatric: A+Ox3, euthymic affect Results & Data ([facility]) Vital Signs (Past 12 Hours) Vital Signs Temp Pulse Pulse Pulse Resp BP BP 01/03/20 12:28 36.7 C 83 73 16 108/73 111/72 01/03/20 11:45 36.7 C 73 16 108/73 01/03/20 07:30 67 01/03/20 07:18 36.6 C 63 16 103/65 01/03/20 03:44 72 01/03/20 03:32 36.7 C 70 18 111/72 Pulse Ox 01/03/20 12:28 93 01/03/20 11:45 93 01/03/20 07:30 01/03/20 07:18 93 01/03/20 03:44 01/03/20 03:32 93 (1) BPH (benign prostatic hyperplasia) Lower urinary tract symptom presence: unspecified whether lower urinary tract symptoms present Qualified Code(s): N40.0 - Benign prostatic hyperplasia without lower urinary tract symptoms
--- NOTE | 2020-01-03 12:46 | Discharge Summary ---
Date of Service January 03, 2020 Admission HPI Per Admitting Provider DICTATED BY: Mateo Castañeda MD DATE OF ADMISSION: 12/29/2019 CHIEF COMPLAINT: Increasing lower extremity edema and shortness of breath on exertion. HISTORY OF PRESENT ILLNESS: This is a 59-year-old male with past medical history significant for type 2 diabetes, hyperlipidemia, CAD, alcoholic liver cirrhosis with ascites, GERD, chronic kidney disease stage III, history of urinary bladder outlet obstruction, status post bilateral nephrostomy tubes, thrombocytopenia, history of tobacco abuse, who lives with his , who walks with the help of cane, who presents with worsening lower extremity edema and also is saying now he is getting shortness of breath on exertion. He has cough going on for last 2 weeks, dry cough. Denies any fever, chills. No chest pain. He is chronically nauseous. He is also having alternating diarrhea and constipation. No blood in the stools or black stools. Nephrostomy tubes are draining fine. Rarely once in a while he gets blood in the urine. Last Monday, his nephrostomy tubes were changed in [place]. He used to be on Lasix and Aldactone in the past, but it was stopped possibly secondary to his kidney issues and he currently is on Lasix and takes it as needed, he does not take it every day. He says his stomach is getting distended and also his lower extremity edema is getting worse, but it got significantly worse the last few days and he was also getting some shortness of breath in exertion, that is the reason he came to the ER. Denies any headache. He gets blurred vision in the morning when he gets up for half an hour, then they are fine. He has dizziness when he stands up. No earache, no runny nose, no sore throat. Appetite is not that great, but no dysphagia or odynophagia. Sleeps okay. Ambulates okay. Currently resting comfortably and hemodynamically stable. A dose of Lasix was given in the ER. He had paracentesis done in May 2019. There is a plan for nephroureteral tubes as per urology and probably turp when he is more stable. Principal Diagnosis Alcoholic cirrhosis of liver with ascites: Discharge Exam Constitutional WD/WN, vitals as above no acute distress Eyes PERRL, conjunctivae normal, anicteric sclerae ENMT external ear and nose normal, oropharynx normal Neck trachea midline, no thyromegaly Respiratory normal respiratory effort, lungs clear to auscultation normal respiratory effort and + cough; no respiratory distress Auscultation: + crackles and + rales (Bibasilar Rales) Cardiovascular RRR, no murmur, no edema Gastrointestinal (Abdomen) Inspection/Auscultation: + abdomen distended Percussion/Palpation: abdomen soft and + ascites Musculoskeletal no cyanosis or clubbing, extremities motor strength 5/5 Neurologic PERRL, EOMI, accommodation nl, no face palsy, no dysarthria Psychiatric A+Ox3, euthymic affect Discharge Data Allergies Allergy/AdvReac Type Severity Reaction Status Date / Time Iodinated Contrast Media Allergy Mild rash? Verified 12/29/19 17:33 Consultations 12/29/19 18:33 ED Decision to Admit Stat 12/29/19 21:08 Consult Case Management - Discharge Planning Routine 12/30/19 08:00 Consult Gastroenterology Routine Ordered Studies 12/30/19 US abdomen ltd ascites Routine IMPRESSION: Small to moderate volume of abdominal ascites. 12/30/19 10:16 US duplex portal hepatic veins Routine IMPRESSION: 1. Patent portal and hepatic veins. Normal antegrade flow within the portal vein. 2. Moderate volume ascites. 3. Cirrhosis. 01/01/20 13:00 US paracentesis abd w/image Routine IMPRESSION: Successful ultrasound-guided paracentesis with removal of approximately 5 liters of ascitic fluid. Hospital Course (1) Alcoholic cirrhosis of liver with ascites: Admitted with large tense ascites, after multiple discussion patient is willing to go for paracentesis Status post paracentesis on 01/01/2020 with drainage of approximately 5 L of ascitic fluid Patient reports immediate improvement after paracentesis Acute renal failure resolved, renal function to baseline, Added Aldactone 25 mg daily, Lasix dose reduced to 20 mg daily(was on 40 mg daily) Appreciate input from gastroenterology Outpatient GI follow-up scheduled in 3 months Patient is stable to be discharged home today (2) Anemia: No acute blood loss. Globin improved/adequate correction after 2 units of PRBC transfusion(hb 7.5 improved to 10.5 H&H remains a stable Possible anemia of chronic disease due to multiple comorbidities High risk for bleeding/esophageal varices in setting of cirrhosis Patient is asked to avoid NSAIDs Appreciate input from GI, outpatient EGD will be scheduled by GI team (3) Esophageal varices: The patient has no reports of GI bleeding or black stools. Started on propanolol Doppler ultrasound of the liver shows no evidence of portal venous thrombosis Outpatient follow-up with GI for EGD surveillance Patient is asked to avoid NSAIDs (4) CKD (chronic kidney disease), stage III: Renal function improved to approximate baseline On Aldactone 25 mg daily/Lasix dose reduced to 20 mg daily Renal function remains stable (5) Hypotension: Borderline low blood pressure: Secondary to advanced liver disease No sign symptoms of dizzy spell lightheadedness (6) BPH (benign prostatic hyperplasia): History of BPH causing severe urinary retention, Follows with urology Dr. Shruthi Whiting at [facility] Patient was thought to be high risk for TURP procedure-advanced liver disease, coagulopathies/bleeding risk status post bilateral nephrostomy tube placed at [facility] Patient follows with [facility] intervention radiology for exchange of nephrostomy tube Next appointment scheduled on 04/02/2020 (7) DM type 2 (diabetes mellitus, type 2): Treated with NovoLog correction factor insulin during the hospital stay (8) Thrombocytopenia: Related to chronic cirrhosis. No active bleeding noted. Avoid antiplatelets, anticoagulation (9) DVT prophylaxis: SCDs, relatively contraindicated in setting of anemia with thrombocytopenia Full code Disposition: Stable to be discharged home today Total Time Total Time Spent Total Time Spent (In Minutes): Approximately 40 minutes Total Time Includes: Examination of the Patient, Discharge Planning, Medication Reconciliation and Communication With Other Providers Discharge Plan Discharge Items Patient Disposition: Home - Home Health Services Reason For Visit: LOWER EXTREMITY EDEMA AND ASCITES Discharge Diagnosis: Alcoholic cirrhosis of liver with ascites: Activity: Resume your previous activity Non-emergency contact: Primary Care Provider Call non-emergency contact if: you have any medication questions Follow-up/Referrals: Km Del Rosario MD [Primary Care Provider] - 01/07/20 10:00 am (If you need to change this appointment please call the [place] office at [phone].) Kacey Leon M.D. [Hospitalist] - 04/21/20 9:00 am (GI follow up with JE Saini at 04/21/2020 9:00 AM Gastroenterology, [facility] ) Diet: Low Sodium (2gm) Addtl Attending Provider Instructions: Do not take aspirin, Aleve, Advil, Motrin, Mobic, ibuprofen, naproxen: He said [id number]-[id number]-pyycdyd medication belonging to NSAIDs which can cause bleeding in your stomach Pending Studies at Discharge: No Stand-Alone Forms: My [facility], Smoking Cessation Medications and DC Order Prescriptions: New spironolactone 25 mg Tablet 50 mg PO QAM 30 Days Qty: 60 RF: 3 propranolol 10 mg Tablet 10 mg PO TID 30 Days Qty: 90 RF: 3 furosemide 20 mg Tablet 20 mg PO QAM 30 Days Qty: 30 RF: 3 lactulose 10 gram/15 mL (15 mL) solution 30 gm PO TID PRN (Reason: constipation) Qty: 750 RF: 3 Continued atorvastatin 40 mg Tablet 40 mg PO PM RF: 0 nitroglycerin 400 mcg/spray Aerosol,[place] 1 dose Sublingual UD PRN (Reason: Angina) RF: 0 tamsulosin 0.4 mg Capsule 0.4 mg PO DAILY RF: 0 gabapentin 300 mg Capsule 300 mg PO TID RF: 0 finasteride 5 mg Tablet 5 mg PO DAILY RF: 0 omega 0-bbz-qai-fish oil [Fish Oil] 1,000 mg (120 mg-180 mg) Capsule 1 cap PO BID RF: 0 Multivitamin 50 Plus Tablet 1 tab PO DAILY RF: 0 albuterol sulfate [ProAir HFA] 90 mcg/actuation Hfa Aerosol Inhaler 2 puff inhalation DAILY PRN (Reason: Shortness Of Breath) RF: 0 ondansetron HCl [Zofran] 4 mg tablet 4 mg PO Q6 PRN (Reason: Nausea) RF: 0 tramadol [Ultram] 50 mg tablet 50 mg PO Q12 PRN (Reason: Pain) RF: 0 meclizine 25 mg Tablet 25 mg PO TID PRN (Reason: dizzyness) RF: 0 glimepiride 4 mg tablet 4 mg PO QAM RF: 0 lisinopril 5 mg Tablet 5 mg PO DAILY RF: 0 oxybutynin chloride 5 mg Tablet 2.5 mg PO TID PRN (Reason: Pain) RF: 0 cholecalciferol (vitamin D3) [Vitamin D3] 25 mcg (1,000 unit) Tablet 1,000 unit PO DAILY RF: 0 Changed esomeprazole magnesium [Nexium] 20 mg capsule,delayed release(DR/EC) 40 mg PO DAILY 30 Days Qty: 60 RF: 0 Discontinued aspirin 81 mg Tablet,Delayed Release (Dr/Ec) 81 mg PO QAM RF: 0 furosemide [Lasix] 40 mg tablet 40 mg PO DAILY PRN (Reason: Edema) RF: 0 Discharge Orders: Discharge Order (Routine); Ordered 01/03/20 Ordered By: Francesca Ruiz Admission Data Admit Date/Time: 12/29/19 19:14 Attending Provider: Francesca Ruiz Admit Provider: Mateo Castañeda Primary Care Provider: Km Del Rosario Other Providers: Mateo Castañeda ; Radha Schmidt ; Tricia Whittaker ; Jai Cote ; Alayna Mena ; Jeronimo Lao ; Yanely Tierney ; Gaudencio Peter ; Lissy Parsons ; Jordi Mathis ; Freddy Cabezas ; Ghislaine Boateng ; Theresa Putnam ; Iva Vences ; Kacey Leon ; Lucrecia Anna Other Interventions: Discharge Summary Assessment (RN) Last Done: 01/03/20 12:28
== END 2020-01-03 14:40 | disposition home or self-care (01) | DRG 432 ==
LOC: ED 16:17 → SUATTDRO 19:14 → 2W 19:14

== ENCOUNTER 2020-01-15 09:59 | Inpatient (IN) ==
[2020-01-15] MEDS ORDERED: ONDANSETRON INJ 2 MG/ML 2 ML VIAL IV STA (10:16)
[2020-01-15] MEDS ORDERED: fentaNYL citrate 100 MCG/2 ML VIAL IV PRN (10:16)
--- NOTE | 2020-01-15 10:21 | Emergency Department Note ---
Entered by Lokesh Cabral acting as a scribe for Jordi Qureshi DO History of Present Illness General Chief complaint: Abdominal Pain Stated complaint: HOLDING FLUID IN STOMACH, FEET, LEGS Time Seen by Provider: 01/15/20 10:07 Source: patient History of Present Illness Onset (ago): hour(s) (this morning) Location: abdomen and lower extremity Pain Consistency: + other (episode) Maximum Pain Intensity: 6 Quality: + other (swelling) Associated symptoms: + fever/chills, + nausea/vomiting, + shortness of breath and + other (+central abdominal pain; +diarrhea; -black or bloody stool) The patient is a 59 year old male, with past medical history of cirrhosis, CHF, CKD and an enlarged prostate, who presents to the Emergency Room with complaints of an episode of edema to the patients abdomen, legs, and feet that the patient states he noticed this morning. The patient reports he regularly gets his abdomen drained, and he states he last got it drained 10 days ago. The patient admits to cirrhosis that was caused by heavy drinking, and he states he has an enlarged prostate. The patient states he had a fever of 101.7 last night, and he states he has been vomiting up yellow fluid that began this morning. The patient also reports of central abdominal pain and shortness of breath. The patient reports of diarrhea, but he states he has only been able to excrete small amounts and dribbles at a time. He denies black or bloody stool. The patient denies prior abdominal surgeries. The patient also denies drinking now or smoking, and he states he is not on any blood thinners. Home Medications Home Medications Medication Instructions Recorded Confirmed Type atorvastatin 40 mg PO PM 01/03/19 01/15/20 History finasteride 5 mg PO DAILY 01/03/19 01/15/20 History gabapentin 300 mg PO TID 01/03/19 01/15/20 History nitroglycerin 1 dose SUBLINGUAL UD PRN 01/03/19 01/15/20 History omega 7-vzf-[id number]-fish oil [Fish Oil] 1 cap PO BID 01/03/19 01/15/20 History Multivitamin 50 Plus 1 tab PO DAILY 05/28/19 01/15/20 History albuterol sulfate [ProAir HFA] 2 puff INHALATION DAILY PRN 05/28/19 01/15/20 H istory glimepiride 4 mg PO QAM 12/29/19 01/15/20 History meclizine 25 mg PO TID PRN 12/29/19 01/15/20 History ondansetron HCl [Zofran] 4 mg PO Q6 PRN 12/29/19 01/15/20 History tramadol [Ultram] 50 mg PO Q12 PRN 12/29/19 01/15/20 History esomeprazole magnesium [Nexium] 40 mg PO DAILY 30 Days #60 cap 01/02/20 01/15/20 Rx furosemide 20 mg PO QAM 30 Days #30 tab 01/02/20 01/15/20 Rx spironolactone 50 mg PO QAM 30 Days #60 tab 01/02/20 01/15/20 Rx lactulose 30 gm PO TID PRN #750 ml 01/03/20 01/15/20 Rx lisinopril 5 mg PO DAILY 01/15/20 01/15/20 History Allergies Allergy/AdvReac Type Severity Reaction Status Date / Time Iodinated Contrast Media Allergy Mild rash? Verified 12/29/19 17:33 Past Med/Surg History Medical History Abdominal pain Acute urinary retention (Inactive) Acute UTI (Inactive) 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) BPH (benign prostatic hyperplasia) (Chronic) CAD (coronary artery disease) (Chronic) 12/1999-PCI to circumflex 03/2001-RCA stent 06/2001-LAD stent x 2 CHF (congestive heart failure) CKD (chronic kidney disease), stage III (Chronic) DM type 2 (diabetes mellitus, type 2) (Chronic) DVT prophylaxis Dyslipidemia (Chronic) Esophageal varices Robertson catheter problem (Inactive) GERD (gastroesophageal reflux disease) (Chronic) Hypertension (Chronic) Myocardial infarction N&V (nausea and vomiting) Thrombocytopenia Surgical History History of esophagogastroduodenoscopy (EGD) (Chronic) 12/2018-nonbleeding grade 2 esophageal varices, portal gastropathy History of tonsillectomy and adenoidectomy (Chronic) Family History Father Family history of diabetes mellitus Sister Family history of diabetes mellitus Mother Family history of esophageal cancer Social History Preferred Language: Sudanese Communication Ability: Effective 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 and A total of 10 systems reviewed and were otherwise negative Physical Exam Vital Signs Vital Signs - 24 hr 01/15/20 10:01 01/15/20 10:26 01/15/20 10:30 Temperature 36.4 C L Temperature Source Oral Pulse Rate 116 H 104 H Pulse Rate [Finger] 82 Pulse Rate from SpO2 Sensor 104 H Respiratory Rate 20 16 34 H Respiratory Effort / Characteristics Non-Labored Non-Labored Respiratory Depth Normal Normal Blood Pressure 103/51 L 98/68 L Blood Pressure [Right Arm] 95/68 L Blood Pressure Mean 68 82 Blood Pressure Mean [Right Arm] 77 Blood Pressure Position Sitting Pulse Oximetry 98 94 94 Oxygen Delivery Method Room Air Room Air Sepsis Recent Fever Within 48 Hours No Sepsis New/Unexplained Change in Mental Status No Sepsis Action Taken by Nursing No Action Required 01/15/20 10:35 01/15/20 10:40 01/15/20 10:50 Temperature Temperature Source Pulse Rate 98 H 103 H 104 H Pulse Rate [Finger] Pulse Rate from SpO2 Sensor 101 H 95 H 94 H Respiratory Rate 26 H 20 20 Respiratory Effort / Characteristics Respiratory Depth Blood Pressure Blood Pressure [Right Arm] Blood Pressure Mean Blood Pressure Mean [Right Arm] Blood Pressure Position Pulse Oximetry 94 93 92 Oxygen Delivery Method Sepsis Recent Fever Within 48 Hours Sepsis New/Unexplained Change in Mental Status Sepsis Action Taken by Nursing 01/15/20 11:00 01/15/20 11:10 01/15/20 11:20 Temperature Temperature Source Pulse Rate 91 H 102 H 102 H Pulse Rate [Finger] Pulse Rate from SpO2 Sensor 95 H 99 H 100 H Respiratory Rate 24 29 H 26 H Respiratory Effort / Characteristics Respiratory Depth Blood Pressure Blood Pressure [Right Arm] Blood Pressure Mean Blood Pressure Mean [Right Arm] Blood Pressure Position Pulse Oximetry 93 91 91 Oxygen Delivery Method Sepsis Recent Fever Within 48 Hours Sepsis New/Unexplained Change in Mental Status Sepsis Action Taken by Nursing 01/15/20 11:30 01/15/20 11:40 01/15/20 11:50 Temperature Temperature Source Pulse Rate 107 H 103 H 105 H Pulse Rate [Finger] Pulse Rate from SpO2 Sensor 106 H 102 H 103 H Respiratory Rate 20 25 H 28 H Respiratory Effort / Characteristics Respiratory Depth Blood Pressure 103/71 Blood Pressure [Right Arm] Blood Pressure Mean 77 Blood Pressure Mean [Right Arm] Blood Pressure Position Pulse Oximetry 94 93 95 Oxygen Delivery Method Sepsis Recent Fever Within 48 Hours Sepsis New/Unexplained Change in Mental Status Sepsis Action Taken by Nursing 01/15/20 12:00 01/15/20 12:10 01/15/20 12:20 Temperature Temperature Source Pulse Rate 104 H 102 H 103 H Pulse Rate [Finger] Pulse Rate from SpO2 Sensor 91 H 101 H 96 H Respiratory Rate 20 17 21 Respiratory Effort / Characteristics Respiratory Depth Blood Pressure 99/70 L Blood Pressure [Right Arm] Blood Pressure Mean 75 Blood Pressure Mean [Right Arm] Blood Pressure Position Pulse Oximetry 92 97 98 Oxygen Delivery Method Sepsis Recent Fever Within 48 Hours Sepsis New/Unexplained Change in Mental Status Sepsis Action Taken by Nursing 01/15/20 12:30 01/15/20 12:40 01/15/20 13:00 Temperature Temperature Source Pulse Rate 108 H 106 H 105 H Pulse Rate [Finger] Pulse Rate from SpO2 Sensor 110 H 107 H Respiratory Rate 25 H 27 H 21 Respiratory Effort / Characteristics Respiratory Depth Blood Pressure Blood Pressure [Right Arm] Blood Pressure Mean Blood Pressure Mean [Right Arm] Blood Pressure Position Pulse Oximetry 97 99 Oxygen Delivery Method Sepsis Recent Fever Within 48 Hours Sepsis New/Unexplained Change in Mental Status Sepsis Action Taken by Nursing 01/15/20 13:01 01/15/20 13:10 01/15/20 13:20 Temperature Temperature Source Pulse Rate 105 H 101 H 103 H Pulse Rate [Finger] Pulse Rate from SpO2 Sensor 105 H 101 H 104 H Respiratory Rate 23 20 19 Respiratory Effort / Characteristics Respiratory Depth Blood Pressure 139/88 Blood Pressure [Right Arm] Blood Pressure Mean 94 Blood Pressure Mean [Right Arm] Blood Pressure Position Pulse Oximetry 98 94 92 Oxygen Delivery Method Sepsis Recent Fever Within 48 Hours Sepsis New/Unexplained Change in Mental Status Sepsis Action Taken by Nursing 01/15/20 13:30 01/15/20 13:40 01/15/20 13:50 Temperature Temperature Source Pulse Rate 101 H 103 H 100 H Pulse Rate [Finger] Pulse Rate from SpO2 Sensor 101 H 103 H 102 H Respiratory Rate 23 24 20 Respiratory Effort / Characteristics Respiratory Depth Blood Pressure 128/87 Blood Pressure [Right Arm] Blood Pressure Mean 98 Blood Pressure Mean [Right Arm] Blood Pressure Position Pulse Oximetry 95 94 90 Oxygen Delivery Method Sepsis Recent Fever Within 48 Hours Sepsis New/Unexplained Change in Mental Status Sepsis Action Taken by Nursing GENERAL: Patient is awake alert in no acute distress patient is resting comfortably and showing no signs of anxiety EYES: The conjunctivae are clear. The pupils are round and reactive. EARS, NOSE, MOUTH AND THROAT: The nose is without any evidence of any deformity. Mucous membranes are moist. Tongue is midline. NECK: The neck is nontender and supple. RESPIRATORY: Diminished breath sounds are noted at both bases. There is no tachypnea or conversational dyspnea. CARDIOVASCULAR: Tachycardic rate with regular rhythm was noted. There was no definite murmur. GASTROINTESTINAL: The abdomen was moderately distended and diffusely tender. There is no specific guarding rigidity. Fluid wave was noted. BACK: Nephrostomy tubes were noted in both flanks. There is no erythema at the site. MUSCULOSKELETAL/EXTREMITIES: There is no evidence of gross deformity full range of motion is noted in the hips and shoulders. SKIN: Skin was pale and dry. There is pedal edema bilaterally. NEUROLOGIC: Patient is awake alert and oriented x3. Course Course 1009: Past medical records reviewed. The patient was evaluated in room A11B. A complete history and physical exam was performed. 1340: I reevaluated and updated the patient on his case. 1350: I reviewed the patient's case with Ekaterina Petty. Dr. Jossie Petty will evaluate the patient for further management. Consultations Consultation #1: I reviewed the patient's case with Ekaterina Petty. Dr. Jossie Petty will evaluate the patient for further management. Time: 13:50 Administered Medications Fentanyl Citrate (Fentanyl Citrate) 50 mcg IV Q15M PRN PRN Reason: Pain Stop: 01/29/20 10:15 Last Admin: 01/15/20 12:00 Dose: 50 mcg Documented by: [id number] Ioversol (Optiray 320 100ml) 94 ml IV ONCE PRN PRN Reason: Interaction Checking Stop: 01/19/20 12:48 Last Admin: 01/15/20 12:49 Dose: 94 ml Documented by: [id number] Discontinued Medications Diphenhydramine HCl (Benadryl) 25 mg IV NOW STA Stop: 01/15/20 10:30 Last Admin: 01/15/20 11:58 Dose: 25 mg Documented by: [id number] Sodium Chloride (Nss) 500 mls @ 999 mls/hr IV .Q31M FINN Stop: 01/15/20 11:00 Last Infusion: 01/15/20 12:43 Dose: 0 mls/hr Documented by: [id number] Admin: 01/15/20 12:01 Dose: 999 mls/hr Documented by: [id number] Famotidine (Pepcid 20mg Iv Push) 20 mg in 5 mls @ 2.5 mls/min IV NOW STA Stop: 01/15/20 10:30 Last Admin: 01/15/20 12:01 Dose: 2.5 mls/min Documented by: [id number] Piperacillin Sod/Tazobactam Sod (Zosyn) 4.5 gm in 120 mls @ 240 mls/hr IV NOW ONE Stop: 01/15/20 13:48 Last Infusion: 01/15/20 14:08 Dose: 0 mls/hr Documented by: [id number] Admin: 01/15/20 13:26 Dose: 240 mls/hr Documented by: [id number] Methylprednisolone (Solumedrol) 125 mg IV NOW STA Stop: 01/15/20 10:30 Last Admin: 01/15/20 12:01 Dose: 125 mg Documented by: [id number] Ondansetron HCl (Zofran) 4 mg IV NOW STA Stop: 01/15/20 10:17 Last Admin: 01/15/20 11:57 Dose: 4 mg Documented by: [id number] Medical Decision Making Differential Diagnosis Differential diagnosis: Etiologies such as gastroenteritis, food borne illness, infections, appendicitis, diverticulitis, inflammatory bowel disease, obstruction, GI bleed, biliary pathology, as well as others were entertained. Medical Records Attestation: I reviewed the patient's medical records. Home Medications Current Medication List: was personally reviewed by me Laboratory Data Attestation: I reviewed the patient's lab results. Result diagrams: 01/15/20 10:43 01/15/20 10:43 Lab Results 01/15/20 01/15/20 01/15/20 Range/Units 10:43 10:43 10:43 WBC 6.28 (4.8-10.8) K/uL RBC 4.20 L (4.7-6.1) M/uL Hgb 10.2 L (14.0-18.0) g/dL Hct 32.9 L (42-52) % MCV 78.3 L (80-100) fL MCH 24.3 L (25-34) pg MCHC 31.0 L (32-36) g/dL RDW Std Deviation 50.7 H (36.4-46.3) fL RDW Coeff of Sudhakar 17.9 H (11.5-14.5) % Plt Count 133 (130-400) K/uL MPV 9.8 (7.4-10.4) fL Immature Gran % (Auto) 0.0 % Neut % (Auto) 76.3 % Lymph % (Auto) 4.8 % [place] % (Auto) 18.3 % Eos % (Auto) 0.3 % Baso % (Auto) 0.3 % Immature Gran # (Auto) 0.00 (0.00-0.02) K/uL Neut # (Auto) 4.79 (1.4-6.5) K/uL Lymph # (Auto) 0.30 L (1.2-3.4) K/uL [place] # (Auto) 1.15 H (0.11-0.59) K/uL Eos # (Auto) 0.02 (0-0.5) K/uL Baso # (Auto) 0.02 (0-0.2) K/uL PT Cancelled INR Cancelled APTT Cancelled PTT Ratio Cancelled Sodium 136 (136-145) mmol/L Potassium 4.2 (3.5-5.1) mmol/L Chloride 106 (98-107) mmol/L Carbon Dioxide 24 (21-32) mmol/L Anion Gap 6.0 (3-11) BUN 25 H (7-18) mg/dl Creatinine 1.35 (0.6-1.4) mg/dl POC Creatinine (0.6-1.3) mg/dl Est Cr Clr Drug Dosing 55.6 ml/min Est GFR ( Amer) 65.2 Est GFR (Non-Af Amer) 56.3 BUN/Creatinine Ratio 18.2 (10-20) Glucose 91 (70-99) mg/dl Calcium 8.5 (8.5-10.1) mg/dl Total Bilirubin 1.5 H (0.2-1) mg/dl Direct Bilirubin (0-0.2) mg/dl AST 100 H (15-37) U/L ALT 12 (12-78) U/L Alkaline Phosphatase 207 H (45-117) U/L Troponin I < 0.015 (0-0.045) ng/ml Total Protein 7.2 (6.4-8.2) gm/dl Albumin 2.4 L (3.4-5.0) gm/dl Globulin 4.8 H (2.5-4.0) gm/dl Albumin/Globulin Ratio 0.5 L (0.9-2) Lipase 77 (73-393) U/L Urine Color Urine Appearance (Clear) Urine pH (4.5-7.5) Ur Specific [place] (1.000-1.030) Urine Protein (Negative) Urine Glucose (UA) (Negative) Urine Ketones (Negative) Urine Blood (Negative) Urine Nitrite (Negative) Urine Bilirubin (Negative) Urine Urobilinogen (Negative) Ur Leukocyte Esterase (Negative) Urine WBC (Auto) (0-5) /hpf Urine RBC (Auto) (0-4) /hpf U Hyaline Cast (Auto) (0-5) /lpf U Epithel Cells (Auto) (0-5) /lpf Urine Bacteria (Auto) (Negative) Urine Yeast 01/15/20 01/15/20 01/15/20 Range/Units 10:49 11:56 12:28 WBC (4.8-10.8) K/uL RBC (4.7-6.1) M/uL Hgb (14.0-18.0) g/dL Hct (42-52) % MCV (80-100) fL MCH (25-34) pg MCHC (32-36) g/dL RDW Std Deviation (36.4-46.3) fL RDW Coeff of Sudhakar (11.5-14.5) % Plt Count (130-400) K/uL MPV (7.4-10.4) fL Immature Gran % (Auto) % Neut % (Auto) % Lymph % (Auto) % [place] % (Auto) % Eos % (Auto) % Baso % (Auto) % Immature Gran # (Auto) (0.00-0.02) K/uL Neut # (Auto) (1.4-6.5) K/uL Lymph # (Auto) (1.2-3.4) K/uL [place] # (Auto) (0.11-0.59) K/uL Eos # (Auto) (0-0.5) K/uL Baso # (Auto) (0-0.2) K/uL PT 13.0 H INR 1.3 H APTT 26.0 PTT Ratio 1.0 Sodium (136-145) mmol/L Potassium (3.5-5.1) mmol/L Chloride (98-107) mmol/L Carbon Dioxide (21-32) mmol/L Anion Gap (3-11) BUN (7-18) mg/dl Creatinine (0.6-1.4) mg/dl POC Creatinine 1.4 H (0.6-1.3) mg/dl Est Cr Clr Drug Dosing ml/min Est GFR ( Amer) Est GFR (Non-Af Amer) BUN/Creatinine Ratio (10-20) Glucose (70-99) mg/dl Calcium (8.5-10.1) mg/dl Total Bilirubin (0.2-1) mg/dl Direct Bilirubin (0-0.2) mg/dl AST (15-37) U/L ALT (12-78) U/L Alkaline Phosphatase (45-117) U/L Troponin I (0-0.045) ng/ml Total Protein (6.4-8.2) gm/dl Albumin (3.4-5.0) gm/dl Globulin (2.5-4.0) gm/dl Albumin/Globulin Ratio (0.9-2) Lipase (73-393) U/L Urine Color Dark Yellow Urine Appearance Turbid A (Clear) Urine pH 5.0 (4.5-7.5) Ur Specific [place] 1.015 (1.000-1.030) Urine Protein 1+ H (Negative) Urine Glucose (UA) Negative (Negative) Urine Ketones Negative (Negative) Urine Blood 2+ H (Negative) Urine Nitrite Positive A (Negative) Urine Bilirubin Negative (Negative) Urine Urobilinogen Negative (Negative) Ur Leukocyte Esterase 3+ H (Negative) Urine WBC (Auto) >30 H (0-5) /hpf Urine RBC (Auto) 5-10 H (0-4) /hpf U Hyaline Cast (Auto) 1-5 (0-5) /lpf U Epithel Cells (Auto) 10-20 H (0-5) /lpf Urine Bacteria (Auto) 2+ H (Negative) Urine Yeast Not Reportable Imaging Data Radiologist's Impression: Radiology results as stated below per my review and the radiologist's interpretation: XR chest 1V portable CLINICAL HISTORY: vomiting nausea. Vomiting. COMPARISON STUDY: 12/29/2019 FINDINGS: Stable cardiomegaly. Chronic elevation left hemidiaphragm. Chronic platelike atelectatic change left mid lung. Lungs are otherwise clear. There are no focal infiltrative changes. IMPRESSION: 1. Moderate stable cardiomegaly 2. Chronic change. 3. No acute process. ACT 112: Negative or not required by law. The above report was generated using voice recognition software. It may contain grammatical, syntax or spelling errors. Electronically signed by: Que Melgar M.D. 01/15/2020 11:[address] abd pelvis IV con only CLINICAL HISTORY: vomiting COMPARISON STUDY: None. TECHNIQUE: The patient was scanned in a dynamic helical fashion during intravenous administration of 94 cc of Optiray 320. A dose lowering technique was utilized adhering to the principles of ALARA. CT DOSE: 788.62 mGy.cm FINDINGS: Lower chest: There are multiple bilateral pulmonary nodules, suspicious for metastatic disease. There are left lower lobe dependent atelectatic changes. Liver: The liver has a cirrhotic morphology. No focal hepatic masses are visualized. Gallbladder: Unremarkable. Spleen: The spleen is enlarged measuring 18.2 cm. No focal splenic masses are visualized. Pancreas: Unremarkable. Adrenal glands: Unremarkable. Kidneys: There are bilateral nephrostomy tubes present. There is a 6 mm hypodense right renal lesion likely representing a cyst. There is no significant hydronephrosis Bowel: There are no transition zones to indicate bowel obstruction. There is a small hiatal hernia. There is no evidence of acute diverticulitis. There is moderate rectal wall thickening. There is infiltration of perirectal fat. Peritoneum: There is moderate ascites. There is omental nodularity, suspicious for carcinomatosis. Vasculature: The abdominal aorta is normal in course and caliber. Adenopathy: There is a mildly large right cardiophrenic angle lymph node. There is pathologic aortocaval adenopathy. There is pathologic iliac chain adenopathy. There are pathologic left inguinal lymph nodes. Pelvic viscera: There is a thick-walled bladder encased by a rind of soft tissue, highly suspicious for neoplasm. Skeletal structures: No destructive osseous lesions are seen. IMPRESSION: 1. Multiple bilateral pulmonary nodules. This should be presumed to represent metastatic disease until proven otherwise 2. Pathologic aortocaval iliac and inguinal lymphadenopathy. The findings are highly suspicious for metastatic disease 3. Cirrhotic morphology the liver 4. Omental and peritoneal nodularity, consistent with abdominal carcinomatosis 5. Ascites 6. Thick-walled bladder. The bladder is encased by a large rind of soft tissue highly suspicious for neoplasm. 7. Thick-walled rectum 8. Bilateral nephrostomy tubes 9. No evidence of bowel obstruction ACT 112: Negative or not required by law. Electronically signed by: Severino Alexis M.D. 01/15/2020 1:09 PM ECG Data Attestation: I personally reviewed and interpreted this ECG as follows: Indication: + abdominal pain Rate (beats per minute): 103 Rhythm: + sinus tachycardia ECG Findings: + PVCs and + LVH Comparison ECG Date: from (12/31/19) Change: no significant change Blood Pressure Blood Pressure Findings: Elevated blood pressure Blood Pressure Disposition: further management by hospitalist [facility] Narrative The patient is a 59-year-old male who presented to the emergency department for an evaluation of abdominal pain. The patient has a history of alcoholic cirrhosis. He had a recent paracentesis. He did have a fever reported last e vening. The patient also has been noticing abdominal pain. He does have nephrostomy tubes because of bladder outlet obstruction. The patient was treated with IV fluids and IV pain medication. He was also treated with IV antibiotics for presumed urinary tract infection. I discussed the patient's laboratory and radiographic studies with him. Given his findings I also discussed his case with the on-call [facility] hospitalist group. They have agreed to evaluate the patient in the emergency department for further management disposition. The patient was unsure about some of the findings on C AT scan especially the questionable metastatic disease. Given the patient's nephrostomy tubes I would wonder if his outlet obstruction could be due to neoplasm and not just enlarged prostate which he claims. The patient may require further inpatient management as well as diagnostic testing. Impression & Plan Abdominal pain, Ascites, Fever, Acute UTI Discharge Plan Visit Data Chief Complaint: Abdominal Pain Stated Complaint: HOLDING FLUID IN STOMACH, FEET, LEGS ED Provider: Jordi Qureshi Discharge Problem: Abdominal pain, Ascites, Fever, Acute UTI Patient Disposition: Being Evaluated by Hospitalist Forms Stand Alone Forms: My [facility] Prescriptions Prescriptions: No Action atorvastatin 40 mg Tablet 40 mg PO PM RF: 0 nitroglycerin 400 mcg/spray Aerosol,[place] 1 dose Sublingual UD PRN (Reason: Angina) RF: 0 gabapentin 300 mg Capsule 300 mg PO TID RF: 0 finasteride 5 mg Tablet 5 mg PO DAILY RF: 0 omega 6-byi-lhy-fish oil [Fish Oil] 1,000 mg (120 mg-180 mg) Capsule 1 cap PO BID RF: 0 Multivitamin 50 Plus Tablet 1 tab PO DAILY RF: 0 albuterol sulfate [ProAir HFA] 90 mcg/actuation Hfa Aerosol Inhaler 2 puff inhalation DAILY PRN (Reason: Shortness Of Breath) RF: 0 ondansetron HCl [Zofran] 4 mg tablet 4 mg PO Q6 PRN (Reason: Nausea) RF: 0 tramadol [Ultram] 50 mg tablet 50 mg PO Q12 PRN (Reason: Pain) RF: 0 meclizine 25 mg Tablet 25 mg PO TID PRN (Reason: dizzyness) RF: 0 glimepiride 4 mg tablet 4 mg PO QAM RF: 0 spironolactone 25 mg Tablet 50 mg PO QAM 30 Days Qty: 60 RF: 3 furosemide 20 mg Tablet 20 mg PO QAM 30 Days Qty: 30 RF: 3 esomeprazole magnesium [Nexium] 20 mg capsule,delayed release(DR/EC) 40 mg PO DAILY 30 Days Qty: 60 RF: 0 lactulose 10 gram/15 mL (15 mL) solution 30 gm PO TID PRN (Reason: constipation) Qty: 750 RF: 3 lisinopril 5 mg tablet 5 mg PO DAILY RF: 0 Referrals Referrals: Km Del Rosario MD [Primary Care Provider] - Discharge Problem: Abdominal pain Qualifiers: Abdominal location: unspecified location Qualified Code(s): R10.9 - Unspecified abdominal pain Ascites Qualifiers: Ascites type: due to alcoholic cirrhosis Qualified Code(s): K70.31 - Alcoholic cirrhosis of liver with ascites Fever Qualifiers: Fever type: unspecified Qualified Code(s): R50.9 - Fever, unspecified The scribe's documentation has been prepared under my direction and personally reviewed by me in its entirety. I confirm that the note above accurately reflects all work, treatment, procedures, and medical decision making performed by me.
[2020-01-15] MEDS ORDERED: DiphenhydrAMINE HCL 50 MG/ML VIAL IV STA (10:29)
[2020-01-15] MEDS ORDERED: FAMOTIDINE 20MG IV PUSH 20 MG/5 ML SYR IV STA (10:29)
[2020-01-15] MEDS ORDERED: methylPREDNISolone 125 MG/2 ML VIAL IV STA (10:29)
[2020-01-15] MEDS ORDERED: SODIUM CHLORIDE 0.9% 500 ML IV SCH (10:30)
[2020-01-15 10:55] LABS: Basophils # (auto) 0.02 K/uL (0-0.2); Basophils % (auto) 0.3 %; Eosinophils # (auto) 0.02 K/uL (0-0.5); Eosinophils % (auto) 0.3 %; Hematocrit (blood only) 32.9 % (42-52); Hemoglobin 10.2 g/dL (14.0-18.0); Lymphocytes % (auto) 4.8 %; Mean Corpuscular Hemoglobin 24.3 pg (25-34); Mean Corpuscular Volume 78.3 fL (80-100); Mean Platelet Volume 9.8 fL (7.4-10.4); Monocytes # (auto) 1.15 K/uL (0.11-0.59); Monocytes % (auto) 18.3 %; Neutrophils # (auto) 4.79 K/uL (1.4-6.5); Neutrophils % (auto) 76.3 %; Platelet Count 133 K/uL (130-400); RDW Coefficient of Variation 17.9 % (11.5-14.5); RDW Standard Deviation 50.7 fL (36.4-46.3); White Blood Count 6.28 K/uL (4.8-10.8)
--- NOTE | 2020-01-15 11:06 | XRay Report ---
XR chest 1V portable CLINICAL HISTORY: vomiting nausea. Vomiting. COMPARISON STUDY: 12/29/2019 FINDINGS: Stable cardiomegaly. Chronic elevation left hemidiaphragm. Chronic platelike atelectatic ch dorie left mid lung. Lungs are otherwise clear. There are no focal infiltrative changes. IMPRESSION: 1. Moderate stable cardiomegaly 2. Chronic change. 3. No acute process. ACT 112: Negative or not required by law. The above report was generated using voice recognition software. It may contain grammatical, syntax or spelling errors. Electronically signed by: Que Melgar M.D. 01/15/2020 11:05 AM
[2020-01-15 11:29] LABS: Alanine Aminotransferase 12 U/L (12-78); Albumin Globulin Ratio 0.5 (0.9-2); Albumin Level 2.4 gm/dl (3.4-5.0); Alkaline Phosphatase 207 U/L (45-117); BUN Creatinine Ratio 18.2 (10-20); Bilirubin,Total 1.5 mg/dl (0.2-1); Blood Urea Nitrogen 25 mg/dl (7-18); Calcium 8.5 mg/dl (8.5-10.1); Carbon Dioxide 24 mmol/L (21-32); Chloride 106 mmol/L (98-107); Creatinine Clr Calc Pharmacy 55.6 ml/min; Est GFR (African American) 65.2; Est GFR (Non-African American) 56.3; Globulin 4.8 gm/dl (2.5-4.0); Glucose 91 mg/dl (70-99); Lipase 77 U/L (73-393); Sodium 136 mmol/L (136-145); Total Protein 7.2 gm/dl (6.4-8.2); Troponin I < 0.015 ng/ml (0-0.045)
[2020-01-15 11:42] LABS: Aspartate Aminotransferase 100 U/L (15-37); Potassium 4.2 mmol/L (3.5-5.1)
[2020-01-15 12:21] LABS: INR 1.3 (0.9-1.1)
[2020-01-15] MEDS ORDERED: IOVERSOL 100ml IV PRN (12:49)
[2020-01-15 12:52] LABS: Appearance Urine Turbid (Clear); Bacteria Urine Automated 2+ (Negative); Bilirubin Urine Negative (Negative); Blood Urine 2+ (Negative); Color Urine Dark Yellow; Glucose Urine UA Negative (Negative); Ketones Urine Negative (Negative); Leukocyte Esterase Urine 3+ (Negative); Nitrite Urine Positive (Negative); Protein Urine 1+ (Negative); Specific Gravity Urine 1.015 (1.000-1.030); Urobilinogen Urine Negative (Negative); WBC Urine Automated >30 /hpf (0-5)
--- NOTE | 2020-01-15 13:11 | CT Scan Report ---
CT abd pelvis IV con only CLINICAL HISTORY: vomiting COMPARISON STUDY: None. TECHNIQUE: The patient was scanned in a dynamic helical fashion during intravenous administration of 94 cc of Optiray 320. A dose lowering technique was utilized adhering to the principles of ALARA. CT DOSE: 788.62 mGy.cm FINDINGS: Lower chest: There are multiple bilateral pulmonary nodules, suspicious for metastatic disease. There are left lower lobe dependent atelectatic changes. Liver: The liver has a cirrhotic morphology. No focal hepatic masses are visualized. Gallbladder: Unremarkable. Spleen: The spleen is enlarged measuring 18.2 cm. No focal splenic masses are visualized. Pancreas: Unremarkable. Adrenal glands: Unremarkable. Kidneys: There are bilateral nephrostomy tubes present. There is a 6 mm hypodense right renal lesion likely representing a cyst. There is no significant hydronephrosis Bowel: There are no transition zones to indicate bowel obstruction. There is a small hiatal hernia. T here is no evidence of acute diverticulitis. There is moderate rectal wall thickening. There is infil tration of perirectal fat. Peritoneum: There is moderate ascites. There is omental nodularity, suspicious for carcinomatosis. Vasculature: The abdominal aorta is normal in course and caliber. Adenopathy: There is a mildly large right cardiophrenic angle lymph node. There is pathologic aortoca shamir adenopathy. There is pathologic iliac chain adenopathy. There are pathologic left inguinal lymph nodes. Pelvic viscera: There is a thick-walled bladder encased by a rind of soft tissue, highly suspicious f or neoplasm. Skeletal structures: No destructive osseous lesions are seen. IMPRESSION: 1. Multiple bilateral pulmonary nodules. This should be presumed to represent metastatic disease unti l proven otherwise 2. Pathologic aortocaval iliac and inguinal lymphadenopathy. The findings are highly suspicious for m etastatic disease 3. Cirrhotic morphology the liver 4. Omental and peritoneal nodularity, consistent with abdominal carcinomatosis 5. Ascites 6. Thick-walled bladder. The bladder is encased by a large rind of soft tissue highly suspicious for neoplasm. 7. Thick-walled rectum 8. Bilateral nephrostomy tubes 9. No evidence of bowel obstruction ACT 112: Negative or not required by law. Electronically signed by: Severino Alexis M.D. 01/15/2020 1:09 PM
[2020-01-15] MEDS ORDERED: PIPERACILL/TAZOBAC CONSULT ACTIVE PRN (13:19)
[2020-01-15] MEDS ORDERED: PIPERACILLIN/TAZOBACTAM 4.5 GM/120 ML BAG IV ONE (13:19)
[2020-01-15 14:47] LABS: Appearance Urine Turbid (Clear); Bilirubin Urine Negative (Negative); Blood Urine 3+ (Negative); Color Urine Dark Yellow; Epithelial Cell Urine Auto 20-30 /lpf (0-5); Glucose Urine UA Negative (Negative); Ketones Urine Trace (Negative); Leukocyte Esterase Urine 3+ (Negative); Nitrite Urine Positive (Negative); Protein Urine 2+ (Negative); Specific Gravity Urine 1.016 (1.000-1.030); Urobilinogen Urine Negative (Negative); WBC Urine Automated >30 /hpf (0-5)
--- NOTE | 2020-01-15 15:09 | History & Physical Report ---
Date of Service January 15, 2020 Assessment & Plan (1) Abdominal pain: (2) Fever: (3) Decompensated hepatic cirrhosis: This is a 59-year-old male who has significant PMH of alcoholic cirrhosis, esophageal varices, CAD, T2DM, HLD, CKD stage III, GERD, bilateral nephrostomy tubes in place who presents to ED secondary to abdominal pain and fever x1 day. In ED patient remained hemodynamically stable and was afebrile. Lab work notable for WBC 6.2K, H&H stable at 10.2 and 32.9, platelet 133, BUN 25, creatinine 1.35, INR 1.3, T bili 1.5, AST 100, troponin WNL, lipase WNL. Urinalysis consistent with proteinuria, +3 hematuria, positive nitrites and leukoesterase concerning for infection. CT scan of abdomen pelvis performed which revealed multiple bilateral pulmonary nodules presumed to represent metastatic disease department otherwise. Further revealed cirrhotic morphology of liver, omental and peritoneal nodularity consistent with abdominal carcinomatosis, ascites, thick-walled bladder encased by large rind of soft tissue suspicious for neoplasm, aortocaval iliac and inguinal lymphadenopathy. Chest x-ray with no acute cardiopulmonary normality. Did receive IV Zosyn while in ED for concern for UTI as well as questionable SBP. He also received IV famotidine. admit to telemetry Consult GI due to concern for decompensated cirrhosis, ascites and possible SBP with reports of a fever and now abdominal pain Abdominal pain could also be secondary to abnormal findings on CAT scan regarding abdominal carcinomatosis Treat prophylactically with 2 g Rocephin daily For gram albumin given today and will give additional 4 g tomorrow For GI clear liquids tonight, n.p.o. after midnight GoLESTRADALY Patient to have EGD colonoscopy in the morning (4) Abnormal CT of the abdomen: CT Scan of abd highly suspicious for bladder neoplasm with omental and peritoneal nodularity consistent with abdominal carcinomatosis, multiple bilateral pulmonary nodules concerning for metastatic disease along with aortocaval iliac and inguinal lymphadenopathy concerning for metastatic disease. Consult urology for urgent evaluation for cystoscopy Patient follows Dr. Whiting of urology Bladder tumor is known however the patient has been unwell to undergo cystoscopy per prior report Await urology recommendation (5) CKD (chronic kidney disease), stage III: acute on chronic CKD 3 Baseline renal function 1 BUN/creatinine 25 and 1.35 today Hold lisinopril (6) BPH (benign prostatic hyperplasia): With bilateral nephrostomy tubes in place Recently changed 12/24/2019 at [facility] [place] Dr. Whiting urology Needs further urologic work-up regarding nephrostomy tubes Initial urinalysis appears concerning for infection however he is afebrile and WBC WNL On Rocephin for SBP coverage Await urine culture (7) DM type 2 (diabetes mellitus, type 2): Last A1c 6.8 12/05/2019 Hold glimepiride NovoLog sliding scale per protocol (8) CAD (coronary artery disease): No complaints of chest pain on statin and lisinopril as outpt (9) Hypertension: Blood pressure stable Continue Lasix, Aldactone but hold home lisinopril secondary to mild elevation in renal function (10) GERD (gastroesophageal reflux disease): Continue daily PPI History with esophageal varices secondary to cirrhosis Monitor (11) Anemia: H&H stable at 10.2 and 32.9 No signs or symptoms of bleeding Received 2 units PRBC most recent admission 12/2019 Follow H&H (12) DVT prophylaxis: SCD/TEDS for now given likely procedure in a.m. Disposition: Admit to telemetry Follow up: PCP Dr. Aguirre upon discharge along with appropriate urology follow- up to complete oncologic work-up and GI follow-up Patient was seen and examined in collaboration with Dr. Murguia, please see addendum History of Present Illness Chief Complaint: Abdominal pain and fever x 1 day. Primary Care Provider: Km Del Rosario MD This is a 59-year-old male who has significant PMH of alcoholic cirrhosis, es ophageal varices, CAD, T2DM, HLD, CKD stage III, GERD, bilateral nephrostomy tubes in place who presents to ED secondary to abdominal pain and fever x1 day. is at bedside. He states abdominal pain started last evening, suprapubic, nonradiating, 07/06, come and go, described as a "sharp ache," made worse with movement, improved with rest. He has had similar symptoms in past whenever he required paracentesis due to ascites. He further elicits he had elevated temperature last evening of 101.7 and chills. He further complains of increased abdominal distention, lower extremity swelling, poor p.o. intake and weight gain. He admits baseline weight approximately 152 and when he weighed himself this morning he was 167. He did have 3-4 episodes of vomiting, yellow in nature prior to arrival. He is chronically short of breath at rest but not worse. Overall feels more weak and difficulty ambulating, using cane. He denies any hematemesis. He denies any dizziness, lightheadedness, syncope, falls, chest pain, shortness breath at rest, cough, hemoptysis, palpitations, nausea, melena, hematochezia. Of significance patient recently hospitalized 12/29/2019 to 01/03/2020 secondary to abdominal pain. He underwent a therapeutic paracentesis of 5 L. He also required 2 units PRBC during that admission secondary to anemia. He was restarted on diuretics Aldactone and Lasix. GI was on board. H&H remained stable posttransfusion. He was discharged to home on increased diuretic regimen and unfortunately presents back today with abdominal pain and fever. He was also hospitalized 07/[address] [facility]. He was initially seen at [facility] and was diagnosed with acute renal failure and hyperkalemia requiring [place] [facility] [place] He underwent urgent dialysis secondary to hyperkalemia. JOSÉ was secondary to post renal obstruction from thickened bladder. He received 2 episodes of HD and underwent bilateral nephrostomy tubes placement on 08/08/19. His hospital course was complicated by acute cystitis treated with IV antibiotics as well as concern for possible bladder CA secondary to abnormal CT scan also concerning for bilateral lung nodules concerning for metastatic disease. He was to follow-up as outpatient with urology for cystoscopy. In ED patient remained hemodynamically stable and was afebrile. Lab work notable for WBC 6.2K, H&H stable at 10.2 and 32.9, platelet 133, BUN 25, creatinine 1.35, INR 1.3, T bili 1.5, AST 100, troponin WNL, lipase WNL. Urinalysis consistent with proteinuria, +3 hematuria, positive nitrites and leukoesterase concerning for infection. CT scan of abdomen pelvis performed which revealed multiple bilateral pulmonary nodules presumed to represent metastatic disease department otherwise. Further revealed cirrhotic morphology of liver, omental and peritoneal nodularity consistent with abdominal carcinomatosis, ascites, thick-walled bladder encased by large rind of soft tissue suspicious for neoplasm, aortocaval iliac and inguinal lymphadenopathy. Chest x-ray with no acute cardiopulmonary normality. Did receive IV Zosyn while in ED for concern for UTI as well as questionable SBP. He also received IV famotidine. Allergies Allergy/AdvReac Type Severity Reaction Status Date / Time Iodinated Contrast Media Allergy Mild rash? Verified 12/29/19 17:33 Home Medications Home Medications Medication Instructions Recorded Confirmed Type atorvastatin 40 mg PO PM 01/03/19 01/15/20 History finasteride 5 mg PO DAILY 01/03/19 01/15/20 History gabapentin 300 mg PO TID 01/03/19 01/15/20 History nitroglycerin 1 dose SUBLINGUAL UD PRN 01/03/19 01/15/20 History omega 3-owv-crc-fish oil [Fish Oil] 1 cap PO BID 01/03/19 01/15/20 History Multivitamin 50 Plus 1 tab PO DAILY 05/28/19 01/15/20 History albuterol sulfate [ProAir HFA] 2 puff INHALATION DAILY PRN 05/28/19 01/15/20 History glimepiride 4 mg PO QAM 12/29/19 01/15/20 History meclizine 25 mg PO TID PRN 12/29/19 01/15/20 History ondansetron HCl [Zofran] 4 mg PO Q6 PRN 12/29/19 01/15/20 History tramadol [Ultram] 50 mg PO Q12 PRN 12/29/19 01/15/20 History esomeprazole magnesium [Nexium] 40 mg PO DAILY 30 Days #60 cap 01/02/20 01/15/20 Rx furosemide 20 mg PO QAM 30 Days #30 tab 01/02/20 01/15/20 Rx spironolactone 50 mg PO QAM 30 Days #60 tab 01/02/20 01/15/20 Rx lactulose 30 gm PO TID PRN #750 ml 01/03/20 01/15/20 Rx lisinopril 5 mg PO DAILY 01/15/20 01/15/20 History Past Med/Surg History Medical History Abdominal pain Acute urinary retention (Inactive) Acute UTI (Inactive) 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) BPH (benign prostatic hyperplasia) (Chronic) CAD (coronary artery disease) (Chronic) 12/1999-PCI to circumflex 03/2001-RCA stent 06/2001-LAD stent x 2 CHF (congestive heart failure) CKD (chronic kidney disease), stage III (Chronic) DM type 2 (diabetes mellitus, type 2) (Chronic) DVT prophylaxis Dyslipidemia (Chronic) Esophageal varices Robertson catheter problem (Inactive) GERD (gastroesophageal reflux disease) (Chronic) Hypertension (Chronic) Myocardial infarction N&V (nausea and vomiting) Thrombocytopenia Surgical History History of esophagogastroduodenoscopy (EGD) (Chronic) 12/2018-nonbleeding grade 2 esophageal varices, portal gastropathy History of tonsillectomy and adenoidectomy (Chronic) Family History Father Family history of diabetes mellitus Sister Family history of diabetes mellitus Mother Family history of esophageal cancer Social History (Updated 01/15/20 @ 15:42 by Ekaterina Newby PA-C) Preferred Language: Welsh Communication Ability: Effective Employment Interviewer Required: No Beliefs That Will Affect Care: None marital status: Current Living Situation: Spouse Other Information That Helps Us Care for You: No Feels Safe at Home: Yes Smoking Status: Former smoker Tobacco Type: cigarettes ; Do You Dip or Chew Tobacco: No ; Second Hand Exposure: No ; Hx Alcohol Use: No Hx Substance Use: No Review of Systems Review of Systems: All systems reviewed & are unremarkable except as noted in HPI & below Physical Exam Physical Exam: Constitutional: Thin, chronically ill-appearing male, vitals as above, NAD, sitting up in bed, dysthymic affect, conversing easily Head: Normocephalic, Atraumatic Eyes: PERRL, conjunctivae normal, anicteric sclerae ENMT: external ear and nose normal, oropharynx normal dry mucous membranes Neck: trachea midline, no thyromegaly normal visual inspection Respiratory: normal respiratory effort, lungs clear to auscultation, diminished breath sounds left lung base, no wheeze, rales, rhonchi. Normal insp/exp effort, no accessory muscle use Cardiovascular: Tachycardic rate, regular rhythm, occasional ectopy, no murmur, trace pedal edema Vessels: no JVD or carotid bruit Chest: normal inspection of chest Abdomen: Distended abdomen, caput medusa, soft, diffusely tender throughout, no rebound, no guarding, no rigidity, positive bowel sounds all 4 quadrants, Musculoskeletal: no cyanosis or clubbing, extremities motor strength 5/5 Skin: no rashes, warm and dry normal turgor Neurologic: PERRL, EOMI, accommodation nl, no face palsy, no dysarthria CN's II-XI intact bilaterally and moves all extremities Psychiatric: A+Ox3, euthymic affect Lymphatic: no cervical or axillary lymphadenopathy : +B/L nephrostomy tubes intact, no surrounding erythema, warmth Results & Data Vital Signs (Past 12 Hours) Vital Signs Temp Pulse Pulse Resp BP BP Pulse Ox 01/15/20 13:50 100 H 20 90 01/15/20 13:40 103 H 24 94 01/15/20 13:30 101 H 23 128/87 95 01/15/20 13:20 103 H 19 92 01/15/20 13:10 101 H 20 94 01/15/20 13:01 105 H 23 139/88 98 01/15/20 13:00 105 H 21 01/15/20 12:40 106 H 27 H 99 01/15/20 12:30 108 H 25 H 97 01/15/20 12:20 103 H 21 98 01/15/20 12:10 102 H 17 97 01/15/20 12:00 104 H 20 99/70 L 92 01/15/20 11:50 105 H 28 H 95 01/15/20 11:40 103 H 25 H 93 01/15/20 11:30 107 H 20 103/71 94 01/15/20 11:20 102 H 26 H 91 01/15/20 11:10 102 H 29 H 91 01/15/20 11:00 91 H 24 93 01/15/20 10:50 104 H 20 92 01/15/20 10:40 103 H 20 93 01/15/20 10:35 98 H 26 H 94 01/15/20 10:30 104 H 34 H 98/68 L 94 01/15/20 10:26 82 16 95/68 L 94 01/15/20 10:01 36.4 C L 116 H 20 103/51 L 98 Code Status & VTE Plan Code Status DNR Discussed with and patient at bedside VTE Prophylaxis Plan VTE Prophylaxis will be ordered: Yes Reason for no VTE drug order: Contraindicated Supervising Physician Co-Signing Physician Notes I have seen and examined the patient and have discussed the case with the provider above. I agree with the assessment and plan as stated with the following exceptions. 59 yo M presents with weight gain and recent fevers and chills overnight with some vomiting. He has known cirrhosis and was recently hospitalized 3 weeks ago for ascites. At this time his diuretics were reinitiated, and he underwent a paracentesis as above. He mentions feeling intermittent bouts of dizziness/vomiting or GI intolerance/swelling even prior to his last admission. Labwork reflects an increase in creat from 1 to 1.35 with a decrease in GFR. This likely reflects the change in kidney function after adding the daily Lasix and aldactone in addition to the lisinopril 5 mg daily, which he takes chronically. However, it is known that in patients with cirrhosis and SBP, renal function becomes impaired likely related to a reduction in effective arterial blood volume and is associated with a high mortality rate . Active issues: 1. Decompensated cirrhosis 2/2 possible SBP vs ascites. 2. Fever/Chills reported, currently afebrile 3. Vomiting 4. JOSÉ 5. BPH with nephrostomy tubes in place 6. Bladder neoplasm suspicious for malignancy and ? metastatic disease on CT scan 7. Thrombocytopenia 8. Anemia Agree with the plan as above, giving intravenous albumin in an effort to expand plasma volume, and hopefully prevent renal impairment (NEJM, 1999, [id number]). Continue small dose lisinopril for now to combat CAROLINE activation. GI consulted and planning an EGD/CSP in am with diagnostic paracentesis in am. Prep overnight. Covered with Rocephin. Currently hungry and no vomiting. Urology consulted to assist with possible bladder neoplasm. If they recommend against cystoscopy or the likelihood of bladder neoplasm, will need to further pursue tissue acquisition regarding additional CT abnormalities mentioned above. DO Blade (1) BPH (benign prostatic hyperplasia) Lower urinary tract symptom presence: unspecified whether lower urinary tract symptoms present Qualified Code(s): N40.0 - Benign prostatic hyperplasia without lower urinary tract symptoms (2) Fever Fever type: unspecified Qualified Code(s): R50.9 - Fever, unspecified (3) Abdominal pain Abdominal location: unspecified location Qualified Code(s): R10.9 - Unspecified abdominal pain
[2020-01-15] MEDS ORDERED: ALBUMIN 25% 50 ML IV SCH (15:15)
[2020-01-15 15:38] LABS: Bacteria Urine Automated 4+ (Negative); Cast Urine Automated 0 /lpf (0-5)
[2020-01-15] MEDS ORDERED: POLYETHYLENE (MIRALAX) 17 GM PACK PO PRN (15:48)
[2020-01-15] MEDS ORDERED: GLUCAGON FOR INJ 1 MG VIAL SQ PRN (15:48)
[2020-01-15] MEDS ORDERED: DEXTROSE 50% 50 ML SYRINGE IV PRN (15:48)
[2020-01-15] MEDS ORDERED: GLUCOSE 10 TABS/TUBE PO PRN (15:48)
[2020-01-15] MEDS ORDERED: GLUCOSE 40% GEL 15 GM TUBE PO PRN (15:48)
[2020-01-15] MEDS ORDERED: ONDANSETRON INJ 2 MG/ML 2 ML VIAL IV PRN (15:48)
[2020-01-15] MEDS ORDERED: ACETAMINOPHEN 325 MG TAB PO PRN (15:48)
[2020-01-15] MEDS ORDERED: ALUMINUM/MAGNESIUM SUSP 30 ML UDC PO PRN (15:48)
[2020-01-15] MEDS ORDERED: CARBOHYDRATES FOR HYPOGLYCEMIA PO PRN (15:48)
[2020-01-15] MEDS ORDERED: LACTULOSE SYRUP 30 GM/45 ML UDP PO PRN (16:05)
[2020-01-15] MEDS: cefTRIAXone SODIUM 2,000 MG in DEXTROSE 5% 50 ML IV SCH (16:46)
[2020-01-15] MEDS: ALBUMIN 25% 50 ML IV SCH ×4 (17:32→21:11)
[2020-01-15] MEDS: INSULIN ASPART 100 UNITS/ML 3 ML PEN SC SCH ×2 (17:35→21:11)
[2020-01-15] MEDS ORDERED: LAVAGE SOLUTION 4000ML PO SCH (18:00)
--- NOTE | 2020-01-15 20:16 | Urology Consultation ---
Date of Consultation January 15, 2020 Assessment & Plan (1) Abnormal CT of the abdomen: dramatic progression of what appears to be bladder cancer to now widely metastatic. He remains too ill for palliative surgery or chemotherapy His prognosis is grim. I had an earnest discussion with patient about his widely metastatic cancer and his very limited life expectancy. he is not surprised at all to hear this as he has felt like he has been dying for several days now. He is appropriately sad and concerned for his and his grandkids. He has strong zoroastrianism trevin. We discussed his prognosis together and then called his to explain the new serious findings on the CT scan. We also would like to hold off on the bowel prep and hold off on the scopes tomorrow. He would like to be discharged home as soon as possible Hospice consult would be appropriate. Present on Admission?: Yes History of Present Illness Reason for Consultation: metastatic bladder cancer Requesting Physician: Dr Newby Attending Physician: Marily Murguia, DO History of Present Illness I am asked by Dr Newby to evaluate and treat for what now appears to be widely metastatic bladder cancer. He has had a very complicated case of new developments of cirrhosis with ascites and bladder wall thickening with bilateral ureteral obstruction last year. He had an acute decompensation with acute severe renal failure with life threatening hyperkalemia. He was life flighted to [place] for emergent dialysis and had nephrostomy tubes. His health has never been stable enough since to allow for proper diagnosis or treatment of his urinary issues. He has been palliated with nephrostomy tubes to preserve his renal function. He has been feeling progressively more ill for last month or more. At admission his urine appears infected with many white cells on urine dip. His nephrostomy tubes are functioning well. He has had fevers at home. Allergies Allergy/AdvReac Type Severity Reaction Status Date / Time Iodinated Contrast Media Allergy Mild rash? Verified 12/29/19 17:33 Home Medications Home Medications Medication Instructions Recorded Confirmed Type atorvastatin 40 mg PO PM 01/03/19 01/15/20 History finasteride 5 mg PO DAILY 01/03/19 01/15/20 History gabapentin 300 mg PO TID 01/03/19 01/15/20 History nitroglycerin 1 dose SUBLINGUAL UD PRN 01/03/19 01/15/20 History omega 0-pbu-vdz-fish oil [Fish Oil] 1 cap PO BID 01/03/19 01/15/20 History Multivitamin 50 Plus 1 tab PO DAILY 05/28/19 01/15/20 History albuterol sulfate [ProAir HFA] 2 puff INHALATION DAILY PRN 05/28/19 01/15/20 History glimepiride 4 mg PO QAM 12/29/19 01/15/20 History meclizine 25 mg PO TID PRN 12/29/19 01/15/20 History ondansetron HCl [Zofran] 4 mg PO Q6 PRN 12/29/19 01/15/20 History tramadol [Ultram] 50 mg PO Q12 PRN 12/29/19 01/15/20 History esomeprazole magnesium [Nexium] 40 mg PO DAILY 30 Days #60 cap 01/02/20 01/15/20 Rx furosemide 20 mg PO QAM 30 Days #30 tab 01/02/20 01/15/20 Rx spironolactone 50 mg PO QAM 30 Days #60 tab 01/02/20 01/15/20 Rx lactulose 30 gm PO TID PRN #750 ml 01/03/20 01/15/20 Rx lisinopril 5 mg PO DAILY 01/15/20 01/15/20 History Patient History Medical History Abdominal pain Acute urinary retention (Inactive) Acute UTI (Inactive) 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) BPH (benign prostatic hyperplasia) (Chronic) CAD (coronary artery disease) (Chronic) 12/1999-PCI to circumflex 03/2001-RCA stent 06/2001-LAD stent x 2 CHF (congestive heart failure) CKD (chronic kidney disease), stage III (Chronic) DM type 2 (diabetes mellitus, type 2) (Chronic) DVT prophylaxis Dyslipidemia (Chronic) Esophageal varices Robertson catheter problem (Inactive) GERD (gastroesophageal reflux disease) (Chronic) Hypertension (Chronic) Myocardial infarction N&V (nausea and vomiting) Thrombocytopenia Surgical History History of esophagogastroduodenoscopy (EGD) (Chronic) 12/2018-nonbleeding grade 2 esophageal varices, portal gastropathy History of tonsillectomy and adenoidectomy (Chronic) Family History Father Family history of diabetes mellitus Sister Family history of diabetes mellitus Mother Family history of esophageal cancer Social History (Updated 01/15/20 @ 15:42 by Ekaterina Newby PA-C) Preferred Language: French Communication Ability: Effective Content Producer Required: No Beliefs That Will Affect Care: None marital status: Current Living Situation: Spouse Other Information That Helps Us Care for You: No Feels Safe at Home: Yes Smoking Status: Former smoker Tobacco Type: cigarettes ; Do You Dip or Chew Tobacco: No ; Second Hand Exposure: No ; Hx Alcohol Use: No Hx Substance Use: No Review of Systems Review of Systems: PMH- cirrhosis with ascites due to prior alcohol abuse, has been sober form many months. 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 Fam Hx- not contributory for this issue ROS- + fever, + chills, + nausea, + emesis, + weight gain, + abdominal distention. Bowels loose, no chest pain, SOB with activity Physical Exam Constitutional: + ill appearing, + frail appearing and cooperative Respiratory: normal respiratory effort; no retractions, does not use accessory muscles, no cough and not tachypneic Gastrointestinal (Abdomen): Percussion/Palpation: + ascites, + fluid wave and + abdomen firm Skin: no rashes, warm and dry Psychiatric: Orientation: alert and oriented x 3 Apperance: appropriately groomed Eye Contact: good eye contact Mood: + depressed mood Insight: good insight Results & Data Vital Signs (Past 12 Hours) Vital Signs Temp Pulse Pulse Resp BP BP BP 01/15/20 19:14 36.6 C 94 H 18 132/74 01/15/20 18:33 36.8 C 91 H 18 133/83 01/15/20 17:30 36.4 C L 102 H 18 104/73 01/15/20 15:48 93 H 20 126/81 01/15/20 15:20 37.0 C 97 H 25 H 01/15/20 15:10 98 H 20 01/15/20 15:00 99 H 22 110/73 02/19/20 14:50 97 H 23 01/15/20 14:40 97 H 20 01/15/20 14:30 102 H 21 123/86 01/15/20 14:20 99 H 22 01/15/20 14:10 103 H 22 01/15/20 14:00 104 H 21 120/83 01/15/20 13:50 100 H 20 01/15/20 13:40 103 H 24 01/15/20 13:30 101 H 23 128/87 01/15/20 13:20 103 H 19 01/15/20 13:10 101 H 20 01/15/20 13:01 105 H 23 139/88 01/15/20 13:00 105 H 21 01/15/20 12:40 106 H 27 H 01/15/20 12:30 108 H 25 H 01/15/20 12:20 103 H 21 01/15/20 12:10 102 H 17 01/15/20 12:00 104 H 20 99/70 L 01/15/20 11:50 105 H 28 H 01/15/20 11:40 103 H 25 H 01/15/20 11:30 107 H 20 103/71 01/15/20 11:20 102 H 26 H 01/15/20 11:10 102 H 29 H 01/15/20 11:00 91 H 24 01/15/20 10:50 104 H 20 01/15/20 10:40 103 H 20 01/15/20 10:35 98 H 26 H 01/15/20 10:30 104 H 34 H 98/68 L 01/15/20 10:26 82 16 95/68 L 01/15/20 10:01 36.4 C L 116 H 20 103/51 L Pulse Ox 01/15/20 19:14 98 01/15/20 18:33 95 01/15/20 17:30 99 01/15/20 15:48 96 01/15/20 15:20 94 01/15/20 15:10 90 01/15/20 15:00 91 01/15/20 14:50 94 01/15/20 14:40 93 01/15/20 14:30 92 01/15/20 14:20 94 01/15/20 14:10 93 01/15/20 14:00 93 01/15/20 13:50 90 01/15/20 13:40 94 01/15/20 13:30 95 01/15/20 13:20 92 01/15/20 13:10 94 01/15/20 13:01 98 01/15/20 13:00 01/15/20 12:40 99 01/15/20 12:30 97 01/15/20 12:20 98 01/15/20 12:10 97 01/15/20 12:00 92 01/15/20 11:50 95 01/15/20 11:40 93 01/15/20 11:30 94 01/15/20 11:20 91 01/15/20 11:10 91 01/15/20 11:00 93 01/15/20 10:50 92 01/15/20 10:40 93 01/15/20 10:35 94 01/15/20 10:30 94 01/15/20 10:26 94 01/15/20 10:01 98
[2020-01-15] MEDS: GABAPENTIN 300 MG CAP PO SCH (21:12)
[2020-01-15] MEDS: ATORVASTATIN 40 MG TAB PO SCH (21:12)
[2020-01-15] MEDS: ACETAMINOPHEN 500 MG TAB PO PRN (22:09)
[2020-01-15] MEDS: TRAMADOL HCL 50 MG TABLET PO PRN (23:33)
--- NOTE | 2020-01-16 06:09 | Electrocardiogram Report ---
Test Reason : Blood Pressure : / mmHG Vent. Rate : 103 BPM Atrial Rate : 103 BPM P-R Int : 122 ms QRS Dur : 090 ms QT Int : 334 ms P-R-T Axes : 037 -16 060 degrees QTc Int : 437 ms Sinus tachycardia with occasional Premature ventricular complexes Premature atrial complexes Inferior infarct (cited on or before 29-DEC-2019) Nonspecific T wave abnormality Abnormal ECG When compared with ECG of 31-DEC-2019 06:52, Questionable change in initial forces of Inferior leads Confirmed by Marcos Schultz ([id number]) on 01/16/2020 6:08:28 AM Referred By: REFERRED SELF Confirmed By:Marcos Schultz
[2020-01-16] MEDS: cefTRIAXone SODIUM 2,000 MG in DEXTROSE 5% 50 ML IV SCH (08:02)
[2020-01-16] MEDS: GABAPENTIN 300 MG CAP PO SCH ×3 (08:03→21:13)
[2020-01-16] MEDS: FUROSEMIDE 20 MG TAB PO SCH (08:03)
[2020-01-16] MEDS: PANTOprazole 40 MG TAB PO SCH (08:04)
[2020-01-16] MEDS: SPIRONOLACTONE 25 MG TAB PO SCH (08:04)
[2020-01-16] MEDS: lisinopriL 5 MG TAB PO SCH (08:04)
[2020-01-16] MEDS: CEROVITE ADV FORMULA TAB PO SCH (08:05)
[2020-01-16] MEDS: INSULIN ASPART 100 UNITS/ML 3 ML PEN SC SCH ×4 (08:06→21:12)
[2020-01-16 08:45] LABS: Mean Corpuscular Hgb Conc 31.4 g/dL (32-36)
[2020-01-16 08:54] LABS: Hematocrit (blood only) 32.5 % (42-52); Hemoglobin 10.2 g/dL (14.0-18.0); Mean Corpuscular Hemoglobin 24.6 pg (25-34); Mean Corpuscular Volume 78.3 fL (80-100); RDW Coefficient of Variation 17.9 % (11.5-14.5); RDW Standard Deviation 51.3 fL (36.4-46.3); Red Blood Count 4.15 M/uL (4.7-6.1); White Blood Count 4.23 K/uL (4.8-10.8)
[2020-01-16 09:11] LABS: BUN Creatinine Ratio 23.1 (10-20); Creatinine Clr Calc Pharmacy 54.4 ml/min; Est GFR (African American) 63.5; Est GFR (Non-African American) 54.8
--- NOTE | 2020-01-16 09:17 | Gastrointestinal Consultation ---
Date of Consultation January 16, 2020 Assessment & Plan (1) Abdominal pain: 59 year old male w/ history of alcoholic cirrhosis abstaining from ETOH, esophageal varices, CAD, T2DM, HLD, CKD stage III, GERD, bilateral nephrostomy tubes in place who presents to ED secondary to abdominal pain and fever x1 day. In ED patient remained hemodynamically stable and was afebrile without leukocytosis. His UA was concerning for infection and CTAP concerning for metastatic disease w/ multiple bilateral pulmonary nodules, omental and peritoneal nodularity consistent with abdominal carcinomatosis, thick-walled bladder encased by large rind of soft tissue suspicious for neoplasm and aortocaval iliac and inguinal lymphadenopathy. His urology was consulted for further discussion regarding CTAP findings and appears the patient has elected to go home without further workup to be with his loved ones. We did discuss endoscopy and he has elected to cancel EGD/Colonoscopy which is very reasonable. I did offer a therapeutic paracentesis as his abdomen is distended and he reports some pressure/bloating and he is very interested in this before discharge home. - Agree w/ SBP coverage - Diagnostic/therapeutic paracentesis prior to discharge ordered - Albumin 25% 25G before and after - No current plan for endoscopic evaluation - No ETOH - Low NA diet, less than 2G - No NSAIDs - Ok for tylenol, less than 2G - Continue other outpatient medications as ordered - Will sign off. Thank you for allowing us to participate in the care of this patient. Please call with any acute changes, questions or concerns. Please see addendum below with additional recommendation from my supervising physician. Supervising Physician Co-Signing Physician Notes I saw and evaluated the patient. We are consulted with regard to ascites and anemia. It appears that the patient has a somewhat complicated history and was recently evaluated at [facility]. It appears that ureteral stents were placed as result of suspected bladder cancer. The patient was seen by urology yesterday evening who felt that he has metastatic bladder cancer. Physical examination No obvious distress Moderate abdominal distention noted Impression: Patient with likely malignant ascites based on imaging studies. Would recommend therapeutic paracentesis as needed. This could certainly be ordered by his regular provider or by his oncologist. We are certainly happy to be involved with this patient as needed, please call our service with any questions or concerns. The patient has elected to go onto palliative care at home. History of Present Illness Reason for Consultation: ascites, anemia, abd pain, fever at home Requesting Physician: Lakesha Attending Physician: Padmini Dupree MD History of Present Illness 59 year old male w/ history of alcoholic cirrhosis abstaining from ETOH, esophageal varices, CAD, T2DM, HLD, CKD stage III, GERD, bilateral nephrostomy tubes in place who presents to ED secondary to abdominal pain and fever x1 day - GI asked to evaluate. Pt was seen and evaluated, chart reviewed. Reports generalized abd pain and fevers at home > 100. Denies nausea/vomiting. No change in BM specifically denies black/bloody stools. There was tentative plan for EGD/Colonoscopy today. However, was evaluated by urology given CT findings w/ concern for progressive metatsatic bladder CA and pt has elected to post- pone/cancel endoscopic evaluation. This AM he tells me his pain is better - he is presently eating breakfast and wants to go home. CTAP: Multiple bilateral pulmonary nodules. This should be presumed to represent metastatic disease until proven otherwise Pathologic aortocaval iliac and inguinal lymphadenopathy. The findings are highly suspicious for metastatic disease Cirrhotic morphology the liver Omental and peritoneal nodularity, consistent with abdominal carcinomatosis Ascites Thick-walled bladder. The bladder is encased by a large rind of soft tissue highly suspicious for neoplasm. Thick-walled rectum Bilateral nephrostomy tubes No evidence of bowel obstruction Allergies Allergy/AdvReac Type Severity Reaction Status Date / Time Iodinated Contrast Media Allergy Mild rash? Verified 12/29/19 17:33 Home Medications Home Medications Medication Instructions Recorded Confirmed Type atorvastatin 40 mg PO PM 01/03/19 01/15/20 History finasteride 5 mg PO DAILY 01/03/19 01/15/20 History gabapentin 300 mg PO TID 01/03/19 01/15/20 History nitroglycerin 1 dose SUBLINGUAL UD PRN 01/03/19 01/15/20 History omega 8-[id number]-fish oil [Fish Oil] 1 cap PO BID 01/03/19 01/15/20 History Multivitamin 50 Plus 1 tab PO DAILY 05/28/19 01/15/20 History albuterol sulfate [ProAir HFA] 2 puff INHALATION DAILY PRN 05/28/19 01/15/20 History glimepiride 4 mg PO QAM 12/29/19 01/15/20 History meclizine 25 mg PO TID PRN 12/29/19 01/15/20 History ondansetron HCl [Zofran] 4 mg PO Q6 PRN 12/29/19 01/15/20 History tramadol [Ultram] 50 mg PO Q12 PRN 12/29/19 01/15/20 History esomeprazole magnesium [Nexium] 40 mg PO DAILY 30 Days #60 cap 01/02/20 01/15/20 Rx furosemide 20 mg PO QAM 30 Days #30 tab 01/02/20 01/15/20 Rx spironolactone 50 mg PO QAM 30 Days #60 tab 01/02/20 01/15/20 Rx lactulose 30 gm PO TID PRN #750 ml 01/03/20 01/15/20 Rx lisinopril 5 mg PO DAILY 01/15/20 01/15/20 History Patient History Medical History Abdominal pain Acute urinary retention (Inactive) Acute UTI (Inactive) 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) BPH (benign prostatic hyperplasia) (Chronic) CAD (coronary artery disease) (Chronic) 12/1999-PCI to circumflex 03/2001-RCA stent 06/2001-LAD stent x 2 CHF (congestive heart failure) CKD (chronic kidney disease), stage III (Chronic) DM type 2 (diabetes mellitus, type 2) (Chronic) DVT prophylaxis Dyslipidemia (Chronic) Esophageal varices Robertson catheter problem (Inactive) GERD (gastroesophageal reflux disease) (Chronic) Hypertension (Chronic) Myocardial infarction N&V (nausea and vomiting) Thrombocytopenia Surgical History History of esophagogastroduodenoscopy (EGD) (Chronic) 12/2018-nonbleeding grade 2 esophageal varices, portal gastropathy History of tonsillectomy and adenoidectomy (Chronic) Family History Father Family history of diabetes mellitus Sister Family history of diabetes mellitus Mother Family history of esophageal cancer Social History (Updated 01/15/20 @ 15:42 by Ekaterina Newby PA-C) Preferred Language: Nigerian Communication Ability: Effective Hot Car Operator Required: No Beliefs That Will Affect Care: None marital status: Current Living Situation: Spouse Other Information That Helps Us Care for You: No Feels Safe at Home: Yes Smoking Status: Former smoker Tobacco Type: cigarettes ; Do You Dip or Chew Tobacco: No ; Second Hand Exposure: No ; Hx Alcohol Use: No Hx Substance Use: No Review of Systems Constitutional: no fever, no chills and no fatigue Respiratory: no cough and no dyspnea Cardiovascular: no chest pain and no radiating jaw, neck or arm pain Gastrointestinal: + bloating; no coffee ground emesis, no hematemesis, no blood in stools and no melena Physical Exam Constitutional: + ill appearing and + thin; no acute distress Neck: trachea midline Respiratory: normal respiratory effort, lungs clear to auscultation Cardiovascular: RRR, no murmur, no edema Gastrointestinal (Abdomen): Inspection/Auscultation: + abdomen distended and normal bowel sounds Percussion/Palpation: abdomen soft and + ascites; abdomen nontender, no guarding and abdomen not rigid Skin: no rashes, warm and dry Results & Data ([facility]) Vital Signs (Past 12 Hours) Vital Signs Temp Pulse Pulse Resp BP BP Pulse Ox 01/16/20 07:31 36.4 C L 91 H 18 143/78 H 94 01/16/20 04:54 36.5 C 99 H 20 139/100 95 01/16/20 02:11 103 H 01/15/20 22:32 36.8 C 105 H 20 148/92 H 94 01/15/20 22:00 36.6 C 100 H 18 146/86 H 100 Laboratory Results 01/16/20 01/16/20 01/16/20 Range/Units 07:47 07:47 07:38 WBC 4.23 L (4.8-10.8) K/uL RBC 4.15 L (4.7-6.1) M/uL Hgb 10.2 L (14.0-18.0) g/dL Hct 32.5 L (42-52) % MCV 78.3 L (80-100) fL MCH 24.6 L (25-34) pg MCHC 31.4 L (32-36) g/dL RDW Std Deviation 51.3 H (36.4-46.3) fL RDW Coeff of Sudhakar 17.9 H (11.5-14.5) % Plt Count 78 L (130-400) K/uL MPV 10.3 (7.4-10.4) fL Immature Gran % (Auto) 0.2 % Neut % (Auto) 81.6 % Lymph % (Auto) 7.1 % [place] % (Auto) 11.1 % Eos % (Auto) 0.0 % Baso % (Auto) 0.0 % Immature Gran # (Auto) 0.01 (0.00-0.02) K/uL Neut # (Auto) 3.45 (1.4-6.5) K/uL Lymph # (Auto) 0.30 L (1.2-3.4) K/uL [place] # (Auto) 0.47 (0.11-0.59) K/uL Eos # (Auto) 0.00 (0-0.5) K/uL Baso # (Auto) 0.00 (0-0.2) K/uL Platelet Estimate Decreased L (Normal) Poikilocytosis Present Anisocytosis Present Microcytosis Present PT INR APTT PTT Ratio Sodium 136 (136-145) mmol/L Potassium 4.0 (3.5-5.1) mmol/L Chloride 104 (98-107) mmol/L Carbon Dioxide 24 (21-32) mmol/L Anion Gap 8.0 (3-11) BUN 32 H (7-18) mg/dl Creatinine 1.38 (0.6-1.4) mg/dl POC Creatinine (0.6-1.3) mg/dl Est Cr Clr Drug Dosing 54.4 ml/min Est GFR ( Amer) 63.5 Est GFR (Non-Af Amer) 54.8 BUN/Creatinine Ratio 23.1 H (10-20) Glucose 210 H (70-99) mg/dl POC Glucose 243 H (70-99) mg/dl Calcium 9.0 (8.5-10.1) mg/dl Total Bilirubin (0.2-1) mg/dl Direct Bilirubin (0-0.2) mg/dl AST (15-37) U/L ALT (12-78) U/L Alkaline Phosphatase (45-117) U/L Troponin I (0-0.045) ng/ml Total Protein (6.4-8.2) gm/dl Albumin (3.4-5.0) gm/dl Globulin (2.5-4.0) gm/dl Albumin/Globulin Ratio (0.9-2) Lipase (73-393) U/L Urine Color Urine Appearance (Clear) Urine pH (4.5-7.5) Ur Specific [place] (1.000-1.030) Urine Protein (Negative) Urine Glucose (UA) (Negative) Urine Ketones (Negative) Urine Blood (Negative) Urine Nitrite (Negative) Urine Bilirubin (Negative) Urine Urobilinogen (Negative) Ur Leukocyte Esterase (Negative) Urine WBC (Auto) (0-5) /hpf Urine RBC (Auto) (0-4) /hpf U Hyaline Cast (Auto) (0-5) /lpf U Epithel Cells (Auto) (0-5) /lpf Urine Bacteria (Auto) (Negative) Urine Yeast 01/15/20 01/15/20 01/15/20 Range/Units 20:06 16:31 12:28 WBC (4.8-10.8) K/uL RBC (4.7-6.1) M/uL Hgb (14.0-18.0) g/dL Hct (42-52) % MCV (80-100) fL MCH (25-34) pg MCHC (32-36) g/dL RDW Std Deviation (36.4-46.3) fL RDW Coeff of Sudhakar (11.5-14.5) % Plt Count (130-400) K/uL MPV (7.4-10.4) fL Immature Gran % (Auto) % Neut % (Auto) % Lymph % (Auto) % [place] % (Auto) % Eos % (Auto) % Baso % (Auto) % Immature Gran # (Auto) (0.00-0.02) K/uL Neut # (Auto) (1.4-6.5) K/uL Lymph # (Auto) (1.2-3.4) K/uL [place] # (Auto) (0.11-0.59) K/uL Eos # (Auto) (0-0.5) K/uL Baso # (Auto) (0-0.2) K/uL Platelet Estimate (Normal) Poikilocytosis Anisocytosis Microcytosis PT INR APTT PTT Ratio Sodium (136-145) mmol/L Potassium (3.5-5.1) mmol/L Chloride (98-107) mmol/L Carbon Dioxide (21-32) mmol/L Anion Gap (3-11) BUN (7-18) mg/dl Creatinine (0.6-1.4) mg/dl POC Creatinine (0.6-1.3) mg/dl Est Cr Clr Drug Dosing ml/min Est GFR ( Amer) Est GFR (Non-Af Amer) BUN/Creatinine Ratio (10-20) Glucose (70-99) mg/dl POC Glucose 246 H 120 H (70-99) mg/dl Calcium (8.5-10.1) mg/dl Total Bilirubin (0.2-1) mg/dl Direct Bilirubin (0-0.2) mg/dl AST (15-37) U/L ALT (12-78) U/L Alkaline Phosphatase (45-117) U/L Troponin I (0-0.045) ng/ml Total Protein (6.4-8.2) gm/dl Albumin (3.4-5.0) gm/dl Globulin (2.5-4.0) gm/dl Albumin/Globulin Ratio (0.9-2) Lipase (73-393) U/L Urine Color Dark Yellow Urine Appearance Turbid A (Clear) Urine pH 5.0 (4.5-7.5) Ur Specific [place] 1.016 (1.000-1.030) Urine Protein 2+ H (Negative) Urine Glucose (UA) Negative (Negative) Urine Ketones Trace H (Negative) Urine Blood 3+ H (Negative) Urine Nitrite Positive A (Negative) Urine Bilirubin Negative (Negative) Urine Urobilinogen Negative (Negative) Ur Leukocyte Esterase 3+ H (Negative) Urine WBC (Auto) >30 H (0-5) /hpf Urine RBC (Auto) 5-10 H (0-4) /hpf U Hyaline Cast (Auto) 0 (0-5) /lpf U Epithel Cells (Auto) 20-30 H (0-5) /lpf Urine Bacteria (Auto) 4+ H (Negative) Urine Yeast Not Reportable 01/15/20 01/15/20 01/15/20 Range/Units 12:28 11:56 10:49 WBC (4.8-10.8) K/uL RBC (4.7-6.1) M/uL Hgb (14.0-18.0) g/dL Hct (42-52) % MCV (80-100) fL MCH (25-34) pg MCHC (32-36) g/dL RDW Std Deviation (36.4-46.3) fL RDW Coeff of Sudhakar (11.5-14.5) % Plt Count (130-400) K/uL MPV (7.4-10.4) fL Immature Gran % (Auto) % Neut % (Auto) % Lymph % (Auto) % [place] % (Auto) % Eos % (Auto) % Baso % (Auto) % Immature Gran # (Auto) (0.00-0.02) K/uL Neut # (Auto) (1.4-6.5) K/uL Lymph # (Auto) (1.2-3.4) K/uL [place] # (Auto) (0.11-0.59) K/uL Eos # (Auto) (0-0.5) K/uL Baso # (Auto) (0-0.2) K/uL Platelet Estimate (Normal) Poikilocytosis Anisocytosis Microcytosis PT 13.0 H INR 1.3 H APTT 26.0 PTT Ratio 1.0 Sodium (136-145) mmol/L Potassium (3.5-5.1) mmol/L Chloride (98-107) mmol/L Carbon Dioxide (21-32) mmol/L Anion Gap (3-11) BUN (7-18) mg/dl Creatinine (0.6-1.4) mg/dl POC Creatinine 1.4 H (0.6-1.3) mg/dl Est Cr Clr Drug Dosing ml/min Est GFR ( Amer) Est GFR (Non-Af Amer) BUN/Creatinine Ratio (10-20) Glucose (70-99) mg/dl POC Glucose (70-99) mg/dl Calcium (8.5-10.1) mg/dl Total Bilirubin (0.2-1) mg/dl Direct Bilirubin (0-0.2) mg/dl AST (15-37) U/L ALT (12-78) U/L Alkaline Phosphatase (45-117) U/L Troponin I (0-0.045) ng/ml Total Protein (6.4-8.2) gm/dl Albumin (3.4-5.0) gm/dl Globulin (2.5-4.0) gm/dl Albumin/Globulin Ratio (0.9-2) Lipase (73-393) U/L Urine Color Dark Yellow Urine Appearance Turbid A (Clear) Urine pH 5.0 (4.5-7.5) Ur Specific [place] 1.015 (1.000-1.030) Urine Protein 1+ H (Negative) Urine Glucose (UA) Negative (Negative) Urine Ketones Negative (Negative) Urine Blood 2+ H (Negative) Urine Nitrite Positive A (Negative) Urine Bilirubin Negative (Negative) Urine Urobilinogen Negative (Negative) Ur Leukocyte Esterase 3+ H (Negative) Urine WBC (Auto) >30 H (0-5) /hpf Urine RBC (Auto) 5-10 H (0-4) /hpf U Hyaline Cast (Auto) 1-5 (0-5) /lpf U Epithel Cells (Auto) 10-20 H (0-5) /lpf Urine Bacteria (Auto) 2+ H (Negative) Urine Yeast Not Reportable 01/15/20 01/15/20 01/15/20 Range/Units 10:43 10:43 10:43 WBC 6.28 (4.8-10.8) K/uL RBC 4.20 L (4.7-6.1) M/uL Hgb 10.2 L (14.0-18.0) g/dL Hct 32.9 L (42-52) % MCV 78.3 L (80-100) fL MCH 24.3 L (25-34) pg MCHC 31.0 L (32-36) g/dL RDW Std Deviation 50.7 H (36.4-46.3) fL RDW Coeff of Sudhakar 17.9 H (11.5-14.5) % Plt Count 133 (130-400) K/uL MPV 9.8 (7.4-10.4) fL Immature Gran % (Auto) 0.0 % Neut % (Auto) 76.3 % Lymph % (Auto) 4.8 % [place] % (Auto) 18.3 % Eos % (Auto) 0.3 % Baso % (Auto) 0.3 % Immature Gran # (Auto) 0.00 (0.00-0.02) K/uL Neut # (Auto) 4.79 (1.4-6.5) K/uL Lymph # (Auto) 0.30 L (1.2-3.4) K/uL [place] # (Auto) 1.15 H (0.11-0.59) K/uL Eos # (Auto) 0.02 (0-0.5) K/uL Baso # (Auto) 0.02 (0-0.2) K/uL Platelet Estimate (Normal) Poikilocytosis Anisocytosis Microcytosis PT Cancelled INR Cancelled APTT Cancelled PTT Ratio Cancelled Sodium 136 (136-145) mmol/L Potassium 4.2 (3.5-5.1) mmol/L Chloride 106 (98-107) mmol/L Carbon Dioxide 24 (21-32) mmol/L Anion Gap 6.0 (3-11) BUN 25 H (7-18) mg/dl Creatinine 1.35 (0.6-1.4) mg/dl POC Creatinine (0.6-1.3) mg/dl Est Cr Clr Drug Dosing 55.6 ml/min Est GFR ( Amer) 65.2 Est GFR (Non-Af Amer) 56.3 BUN/Creatinine Ratio 18.2 (10-20) Glucose 91 (70-99) mg/dl POC Glucose (70-99) mg/dl Calcium 8.5 (8.5-10.1) mg/dl Total Bilirubin 1.5 H (0.2-1) mg/dl Direct Bilirubin (0-0.2) mg/dl AST 100 H (15-37) U/L ALT 12 (12-78) U/L Alkaline Phosphatase 207 H (45-117) U/L Troponin I < 0.015 (0-0.045) ng/ml Total Protein 7.2 (6.4-8.2) gm/dl Albumin 2.4 L (3.4-5.0) gm/dl Globulin 4.8 H (2.5-4.0) gm/dl Albumin/Globulin Ratio 0.5 L (0.9-2) Lipase 77 (73-393) U/L Urine Color Urine Appearance (Clear) Urine pH (4.5-7.5) Ur Specific [place] (1.000-1.030) Urine Protein (Negative) Urine Glucose (UA) (Negative) Urine Ketones (Negative) Urine Blood (Negative) Urine Nitrite (Negative) Urine Bilirubin (Negative) Urine Urobilinogen (Negative) Ur Leukocyte Esterase (Negative) Urine WBC (Auto) (0-5) /hpf Urine RBC (Auto) (0-4) /hpf U Hyaline Cast (Auto) (0-5) /lpf U Epithel Cells (Auto) (0-5) /lpf Urine Bacteria (Auto) (Negative) Urine Yeast (1) Abdominal pain Abdominal location: unspecified location Qualified Code(s): R10.9 - Unspecified abdominal pain
[2020-01-16 09:20] LABS: Anisocytosis Present; Immature Granulocytes # (auto) 0.01 K/uL (0.00-0.02); Immature Granulocytes % (auto) 0.2 %; Lymphocytes % (auto) 7.1 %; Mean Platelet Volume 10.3 fL (7.4-10.4); Microcytosis Present; Monocytes # (auto) 0.47 K/uL (0.11-0.59); Monocytes % (auto) 11.1 %; Neutrophils # (auto) 3.45 K/uL (1.4-6.5); Neutrophils % (auto) 81.6 %; Platelet Count 78 K/uL (130-400); Platelet Estimate Decreased (Normal); Poikilocytosis Present
--- NOTE | 2020-01-16 11:18 | Hospitalist Progress Note ---
Date of Service January 16, 2020 Assessment & Plan (1) Abdominal pain: (2) Fever: (3) Decompensated hepatic cirrhosis: 59-year-old male who has significant PMH of alcoholic cirrhosis, esophageal varices, CAD, T2DM, HLD, CKD stage III, GERD, bilateral nephrostomy tubes in place who presents to ED secondary to abdominal pain and fever x1 day. In ED patient remained hemodynamically stable and was afebrile. Lab work notable for WBC 6.2K, H&H stable at 10.2 and 32.9, platelet 133, BUN 2 5, creatinine 1.35, INR 1.3, T bili 1.5, AST 100, troponin WNL, lipase WNL. Urinalysis consistent with proteinuria, +3 hematuria, positive nitrites and leukoesterase concerning for infection. UCx - GNR. H/o Enterococcus UTI in 07/2019 Possible UTI vs colonization considering chronic bilateral nephrostomy CT scan of abdomen pelvis performed which revealed multiple bilateral pulmonary nodules presumed to represent metastatic disease department otherwise. Further revealed cirrhotic morphology of liver, omental and peritoneal nodularity consistent with abdominal carcinomatosis, ascites, thick-walled bladder encased by large rind of soft tissue suspicious for neoplasm, aortocaval iliac and inguinal lymphadenopathy. Chest x-ray with no acute cardiopulmonary normality. Currently on ceftriaxone To get therapeutic paracentesis today (4) Abnormal CT of the abdomen: CT Scan of abd highly suspicious for bladder neoplasm with omental and peritoneal nodularity consistent with abdominal carcinomatosis, multiple bilateral pulmonary nodules concerning for metastatic disease along with aortocaval iliac and inguinal lymphadenopathy concerning for metastatic disease. Patient follows Dr. Whiting of urology. She discussed with patient who opted for home hospice I also discussed with Dr Whiting this morning Patient being evaluated by Palliative Plan for discharge on home hospice. CM aware (5) CKD (chronic kidney disease), stage III: Acute on chronic CKD 3 Baseline renal function 1 Cr is 1.38 today Holding lisinopril (6) BPH (benign prostatic hyperplasia): With bilateral nephrostomy tubes in place Recently changed 12/24/2019 at [facility] Follows Dr. Whiting urology Urine culture is GNR Continue ceft for now as above (7) DM type 2 (diabetes mellitus, type 2): Last A1c 6.8 12/05/2019 Hold glimepiride NovoLog sliding scale per protocol (8) CAD (coronary artery disease): No complaints of chest pain on statin and lisinopril as outpt (9) Hypertension: Blood pressure stable Continue Lasix, Aldactone but hold home lisinopril secondary to mild elevation in renal function (10) GERD (gastroesophageal reflux disease): Continue daily PPI History with esophageal varices secondary to cirrhosis Monitor (11) Anemia: H&H stable at 10.2 and 32.5 No signs or symptoms of bleeding Received 2 units PRBC most recent admission 12/2019 Monitor (12) DVT prophylaxis: SCD/TEDS for now . Ambulate Admission and Anticipated Discharge Date Admission Date: January 15, 2020 Subjective Patient seen and examined this morning. Reports some mild abdominal pain which she ascribes to abdominal distention. Denied any fevers today, chills, nausea vomiting. Reports some weakness Reported he had some cough yesterday night but has all resolved Denies any chest pain or shortness of breath Patient was seen by urologist Dr. Whiting yesterday. Patient stated that he wants to be discharged on home hospice after paracentesis. He also stated that he would want to be DNI DNR and would not want any treatment that would not benefit his overall clinical picture. He stated that he would only like to continue to do as needed paracentesis outpatient to allieviate abdominal distention Physical Exam Constitutional: + ill appearing; no acute distress ENMT: external ear and nose normal, oropharynx normal Respiratory: normal respiratory effort, lungs clear to auscultation Cardiovascular: RRR, no murmur, no edema Gastrointestinal (Abdomen): Inspection/Auscultation: + abdomen distended and normal bowel sounds Percussion/Palpation: abdomen soft and + ascites; abdomen nontender Musculoskeletal: no cyanosis or clubbing, extremities motor strength 5/5 Neurologic: PERRL, EOMI, accommodation nl, no face palsy, no dysarthria Psychiatric: A+Ox3, euthymic affect Insight: good insight Judgement: good judgement Results & Data ([facility]) Vital Signs (Past 12 Hours) Vital Signs Temp Pulse Pulse Resp BP BP Pulse Ox 01/16/20 09:39 95 H 01/16/20 07:31 36.4 C L 91 H 18 143/78 H 94 01/16/20 04:54 36.5 C 99 H 20 139/100 95 01/16/20 02:11 103 H Laboratory Results Laboratory Results - last 24 hr 01/15/20 01/15/20 01/15/20 10:43 10:43 11:56 WBC RBC Hgb Hct MCV MCH MCHC RDW Std Deviation RDW Coeff of Sudhakar Plt Count MPV Immature Gran % (Auto) Neut % (Auto) Lymph % (Auto) [place] % (Auto) Eos % (Auto) Baso % (Auto) Immature Gran # (Auto) Neut # (Auto) Lymph # (Auto) [place] # (Auto) Eos # (Auto) Baso # (Auto) Platelet Estimate Poikilocytosis Anisocytosis Microcytosis PT Cancelled 13.0 H INR Cancelled 1.3 H APTT Cancelled 26.0 PTT Ratio Cancelled 1.0 Sodium 136 Potassium 4.2 Chloride 106 Carbon Dioxide 24 Anion Gap 6.0 BUN 25 H Creatinine 1.35 Est Cr Clr Drug Dosing 55.6 Est GFR ( Amer) 65.2 Est GFR (Non-Af Amer) 56.3 BUN/Creatinine Ratio 18.2 Glucose 91 POC Glucose Calcium 8.5 Total Bilirubin 1.5 H Direct Bilirubin AST 100 H ALT 12 Alkaline Phosphatase 207 H Troponin I < 0.015 Total Protein 7.2 Albumin 2.4 L Globulin 4.8 H Albumin/Globulin Ratio 0.5 L Lipase 77 Urine Color Urine Appearance Urine pH Ur Specific [place] Urine Protein Urine Glucose (UA) Urine Ketones Urine Blood Urine Nitrite Urine Bilirubin Urine Urobilinogen Ur Leukocyte Esterase Urine WBC (Auto) Urine RBC (Auto) U Hyaline Cast (Auto) U Epithel Cells (Auto) Urine Bacteria (Auto) Urine Yeast 01/15/20 01/15/20 01/15/20 12:28 12:28 16:31 WBC RBC Hgb Hct MCV MCH MCHC RDW Std Deviation RDW Coeff of Sudhakar Plt Count MPV Immature Gran % (Auto) Neut % (Auto) Lymph % (Auto) [place] % (Auto) Eos % (Auto) Baso % (Auto) Immature Gran # (Auto) Neut # (Auto) Lymph # (Auto) [place] # (Auto) Eos # (Auto) Baso # (Auto) Platelet Estimate Poikilocytosis Anisocytosis Microcytosis PT INR APTT PTT Ratio Sodium Potassium Chloride Carbon Dioxide Anion Gap BUN Creatinine Est Cr Clr Drug Dosing Est GFR ( Amer) Est GFR (Non-Af Amer) BUN/Creatinine Ratio Glucose POC Glucose 120 H Calcium Total Bilirubin Direct Bilirubin AST ALT Alkaline Phosphatase Troponin I Total Protein Albumin Globulin Albumin/Globulin Ratio Lipase Urine Color Dark Yellow Dark Yellow Urine Appearance Turbid A Turbid A Urine pH 5.0 5.0 Ur Specific [place] 1.015 1.016 Urine Protein 1+ H 2+ H Urine Glucose (UA) Negative Negative Urine Ketones Negative Trace H Urine Blood 2+ H 3+ H Urine Nitrite Positive A Positive A Urine Bilirubin Negative Negative Urine Urobilinogen Negative Negative Ur Leukocyte Esterase 3+ H 3+ H Urine WBC (Auto) >30 H >30 H Urine RBC (Auto) 5-10 H 5-10 H U Hyaline Cast (Auto) 1-5 0 U Epithel Cells (Auto) 10-20 H 20-30 H Urine Bacteria (Auto) 2+ H 4+ H Urine Yeast Not Reportable Not Reportable 01/15/20 01/16/20 01/16/20 20:06 07:38 07:47 WBC 4.23 L RBC 4.15 L Hgb 10.2 L Hct 32.5 L MCV 78.3 L MCH 24.6 L MCHC 31.4 L RDW Std Deviation 51.3 H RDW Coeff of Sudhakar 17.9 H Plt Count 78 L MPV 10.3 Immature Gran % (Auto) 0.2 Neut % (Auto) 81.6 Lymph % (Auto) 7.1 [place] % (Auto) 11.1 Eos % (Auto) 0.0 Baso % (Auto) 0.0 Immature Gran # (Auto) 0.01 Neut # (Auto) 3.45 Lymph # (Auto) 0.30 L [place] # (Auto) 0.47 Eos # (Auto) 0.00 Baso # (Auto) 0.00 Platelet Estimate Decreased L Poikilocytosis Present Anisocytosis Present Microcytosis Present PT INR APTT PTT Ratio Sodium Potassium Chloride Carbon Dioxide Anion Gap BUN Creatinine Est Cr Clr Drug Dosing Est GFR ( Amer) Est GFR (Non-Af Amer) BUN/Creatinine Ratio Glucose POC Glucose 246 H 243 H Calcium Total Bilirubin Direct Bilirubin AST ALT Alkaline Phosphatase Troponin I Total Protein Albumin Globulin Albumin/Globulin Ratio Lipase Urine Color Urine Appearance Urine pH Ur Specific [place] Urine Protein Urine Glucose (UA) Urine Ketones Urine Blood Urine Nitrite Urine Bilirubin Urine Urobilinogen Ur Leukocyte Esterase Urine WBC (Auto) Urine RBC (Auto) U Hyaline Cast (Auto) U Epithel Cells (Auto) Urine Bacteria (Auto) Urine Yeast 01/16/20 07:47 WBC RBC Hgb Hct MCV MCH MCHC RDW Std Deviation RDW Coeff of Sudhakar Plt Count MPV Immature Gran % (Auto) Neut % (Auto) Lymph % (Auto) [place] % (Auto) Eos % (Auto) Baso % (Auto) Immature Gran # (Auto) Neut # (Auto) Lymph # (Auto) [place] # (Auto) Eos # (Auto) Baso # (Auto) Platelet Estimate Poikilocytosis Anisocytosis Microcytosis PT INR APTT PTT Ratio Sodium 136 Potassium 4.0 Chloride 104 Carbon Dioxide 24 Anion Gap 8.0 BUN 32 H Creatinine 1.38 Est Cr Clr Drug Dosing 54.4 Est GFR ( Amer) 63.5 Est GFR (Non-Af Amer) 54.8 BUN/Creatinine Ratio 23.1 H Glucose 210 H POC Glucose Calcium 9.0 Total Bilirubin Direct Bilirubin AST ALT Alkaline Phosphatase Troponin I Total Protein Albumin Globulin Albumin/Globulin Ratio Lipase Urine Color Urine Appearance Urine pH Ur Specific [place] Urine Protein Urine Glucose (UA) Urine Ketones Urine Blood Urine Nitrite Urine Bilirubin Urine Urobilinogen Ur Leukocyte Esterase Urine WBC (Auto) Urine RBC (Auto) U Hyaline Cast (Auto) U Epithel Cells (Auto) Urine Bacteria (Auto) Urine Yeast (1) Abdominal pain Abdominal location: unspecified location Qualified Code(s): R10.9 - Unspecified abdominal pain (2) Fever Fever type: unspecified Qualified Code(s): R50.9 - Fever, unspecified (3) BPH (benign prostatic hyperplasia) Lower urinary tract symptom presence: unspecified whether lower urinary tract symptoms present Qualified Code(s): N40.0 - Benign prostatic hyperplasia without lower urinary tract symptoms
--- NOTE | 2020-01-16 13:01 | Palliative Care Consultation ---
Date of Consultation January 16, 2020 Assessment & Plan (1) Goals of care, counseling/discussion: -59 year old male patient with PMH alcoholic cirrhosis, esophageal varices, CAD, DM II, HLD, CKD stage III, GERD, bilateral nephrostomy tubes, BPH and others, presented to the ED secondary to abdominal pain and fever x1 day. Patient was just recently in the hospital at the beginning of the month with the same issues. He is following with urology as an outpatient. Upon arriva, CT abd/pelvis was obtained which was concerning for metastatic disease w/ multiple bilateral pulmonary nodules, omental and peritoneal nodularity consistent with abdominal carcinomatosis, thick-walled bladder encased by large ring of soft tissue suspicious for neoplasm and aortocaval iliac and inguinal lymphadenopathy. Gi was consulted and EGD/colonoscopy was planned for today 01/16. However, urology was consulted and discussed with patient that this likely malignancy appears to be extremely aggressive and is already extensive. After this discussion, patient stated that he really wanted to defer any further w orkup and wanted to go home with hospice to e comfortable. Palliative care is consulted to discuss goals of care. -met with patient and his , Lynn, in room 263. Patient is pleasant, AA&O x4. -Patient and both state that they understand patient's prognosis and they do not want further testing. patient confirmed he does not want EGD/Colonoscopy, biopsy, etc. Patient stated, "I'm going today no matter what." He also stated he is interested in home hospice care. -I explained hospice, their philosophy, how their service works. Patient and are in agreement. manager cosmetic is working on hospice referral and insurance issues. Because patient is only 59 years old and not eligible for medicare, uncertain of his hospice benefit. They requested a referral to [facility] hospice. -Patient is going to have paracentesis today. His abdomen is distended and he is uncomfortable from this. He last had a paracentesis about two weeks ago and had 5L removed. I think patient could possibly need further palliative paracenteses in the future, since he is still functional and ambulatory. -Patient currently has no other pain or discomfort. -POLST form explained and completed as follows: DNR, comfort measures only, abx with comfort as the goal, trial of IVF but no feeding tube. His Lynn is his surrogate decision maker if needed. -Patient's son Willie was present for part of conversation and is in agreement with his father's wishes to go home with hospice care. -We will follow as needed. (2) Decompensation of cirrhosis of liver: (3) Bladder mass: (4) Suspected malignant neoplasm: Supervising Physician Co-Signing Physician Notes Chart reviewed, patient seen and examined. Collaborated with JE Guzmán Patient's and son at bedside PE: Patient awake and alert, no acute distress HEENT: EOMI, hearing within normal limits Respiratory: Unlabored CV: Regular rate Abdomen: Not distended Neuro: Alert and oriented Agree with above note, assessment and plan as per JE Guzmán. Patient is hoping to be discharged home with hospice care later today. History of Present Illness Attending Physician: Padmini Dupree MD History of Present Illness This 59 year old male patient with PMH alcoholic cirrhosis, esophageal varices, CAD, DM II, HLD, CKD stage III, GERD, bilateral nephrostomy tubes, BPH and others, presented to the ED secondary to abdominal pain and fever x1 day. Patient was just recently in the hospital at the beginning of the month with the same issues. He is following with urology as an outpatient. Upon arriva, CT abd/pelvis was obtained which was concerning for metastatic disease w/ multiple bilateral pulmonary nodules, omental and peritoneal nodularity consistent with abdominal carcinomatosis, thick-walled bladder encased by large ring of soft tissue suspicious for neoplasm and aortocaval iliac and inguinal lymphadenopathy. Gi was consulted and EGD/colonoscopy was planned for today 01/16. However, urology was consulted and discussed with patient that this likely malignancy appears to be extremely aggressive and is already extensive. After this discussion, patient stated that he really wanted to defer any further taisha p and wanted to go home with hospice to e comfortable. Palliative care is consulted to discuss goals of care. Thank you kindly for this consult. Palliative care team will follow as needed. Allergies Allergy/AdvReac Type Severity Reaction Status Date / Time Iodinated Contrast Media Allergy Mild rash? Verified 12/29/19 17:33 Home Medications Home Medications Medication Instructions Recorded Confirmed Type atorvastatin 40 mg PO PM 01/03/19 01/15/20 History finasteride 5 mg PO DAILY 01/03/19 01/15/20 History gabapentin 300 mg PO TID 01/03/19 01/15/20 History nitroglycerin 1 dose SUBLINGUAL UD PRN 01/03/19 01/15/20 History omega [id number]-fish oil [Fish Oil] 1 cap PO BID 01/03/19 01/15/20 History Multivitamin 50 Plus 1 tab PO DAILY 05/28/19 01/15/20 History albuterol sulfate [ProAir HFA] 2 puff INHALATION DAILY PRN 05/28/19 01/15/20 History glimepiride 4 mg PO QAM 12/29/19 01/15/20 History meclizine 25 mg PO TID PRN 12/29/19 01/15/20 History ondansetron HCl [Zofran] 4 mg PO Q6 PRN 12/29/19 01/15/20 History tramadol [Ultram] 50 mg PO Q12 PRN 12/29/19 01/15/20 History esomeprazole magnesium [Nexium] 40 mg PO DAILY 30 Days #60 cap 01/02/20 01/15/20 Rx furosemide 20 mg PO QAM 30 Days #30 tab 01/02/20 01/15/20 Rx spironolactone 50 mg PO QAM 30 Days #60 tab 01/02/20 01/15/20 Rx lactulose 30 gm PO TID PRN #750 ml 01/03/20 01/15/20 Rx lisinopril 5 mg PO DAILY 01/15/20 01/15/20 History Patient History Medical History (Updated 01/16/20 @ 13:00 by JE Joyce) Abdominal pain Acute urinary retention (Inactive) Acute UTI (Inactive) 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) Bladder mass BPH (benign prostatic hyperplasia) (Chronic) CAD (coronary artery disease) (Chronic) 12/1999-PCI to circumflex 03/2001-RCA stent 06/2001-LAD stent x 2 CHF (congestive heart failure) CKD (chronic kidney disease), stage III (Chronic) DM type 2 (diabetes mellitus, type 2) (Chronic) DVT prophylaxis Dyslipidemia (Chronic) Esophageal varices Robertson catheter problem (Inactive) GERD (gastroesophageal reflux disease) (Chronic) Goals of care, counseling/discussion Hypertension (Chronic) Myocardial infarction N&V (nausea and vomiting) Suspected malignant neoplasm Thrombocytopenia Surgical History History of esophagogastroduodenoscopy (EGD) (Chronic) 12/2018-nonbleeding grade 2 esophageal varices, portal gastropathy History of tonsillectomy and adenoidectomy (Chronic) Family History Father Family history of diabetes mellitus Sister Family history of diabetes mellitus Mother Family history of esophageal cancer Social History (Updated 01/15/20 @ 15:42 by Ekaterina Newby PA-C) Preferred Language: Yakut Communication Ability: Effective Air Defence Officer Required: No Beliefs That Will Affect Care: None marital status: Current Living Situation: Spouse Other Information That Helps Us Care for You: No Feels Safe at Home: Yes Smoking Status: Former smoker Tobacco Type: cigarettes ; Do You Dip or Chew Tobacco: No ; Second Hand Exposure: No ; Hx Alcohol Use: No Hx Substance Use: No Review of Systems Review of Systems: Const: No weakness ENMT: No dysphagia Resp: No SOB, no cough Cardio: No chest pain, no edema GI: + abdominal distension MS: No musculoskeletal pain Neuro: No confusion Psych: No anxiety, no depression Physical Exam Constitutional: + thin; no acute distress ENMT: external ear and nose normal, oropharynx normal Neck: normal visual inspection Respiratory: normal respiratory effort, lungs clear to auscultation Cardiovascular: RRR, no murmur, no edema Gastrointestinal (Abdomen): Inspection/Auscultation: + abdomen distended and normal bowel sounds Percussion/Palpation: abdomen soft Neurologic: moves all extremities and awake; not confused Psychiatric: A+Ox3, euthymic affect Results & Data Vital Signs (Past 12 Hours) Vital Signs Temp Pulse Pulse Resp BP BP Pulse Ox 01/16/20 11:34 36.4 C L 93 H 18 148/88 H 96 01/16/20 09:39 95 H 01/16/20 07:31 36.4 C L 91 H 18 143/78 H 94 01/16/20 04:54 36.5 C 99 H 20 139/100 95 01/16/20 02:11 103 H Coding Level of Care Code 52046 Inpt Consult Level 3 Diagnoses Goals of care, counseling/discussion Z71.89 Decompensation of cirrhosis of liver K72.90 Bladder mass N32.89 Suspected malignant neoplasm R68.89 Time Spent (min) 70 Time Spent Midlevel 70 minutes with >50% of the time spent at bedside with patient and family discussing condition, goals, hospice and POLST.
[2020-01-16] MEDS ORDERED: ALBUMIN 25% 50 ML IV ONE (14:29)
--- NOTE | 2020-01-16 14:42 | Ultrasound Report ---
PARACENTESIS UNDER ULTRASOUND GUIDANCE CLINICAL HISTORY: Cirrhosis and ascites. COMPARISON STUDY: Abdominal CT dated 01/15/2020. PROCEDURE: The risks, benefits, and alternatives to the procedure were discussed with the patient who voiced understanding. Written informed consent was obtained. Following real-time ultrasound localiza tion of a suitable pocket of fluid in the right lower quadrant, the abdomen was prepped and draped in the usual sterile fashion. The skin and soft tissues were anesthetized with 1% lidocaine. The sheath ed paracentesis needle was inserted and approximately 4.8 liters of straw-colored ascitic fluid was r emoved by vacuum suction. The procedure was well tolerated and without immediate complication. The pa tient left the department in satisfactory condition. IMPRESSION: Successful ultrasound-guided paracentesis with removal of approximately 4.8 liters of asc itic fluid. ACT 112: Negative or not required by law. Electronically signed by: Luan Bennett M.D. 01/16/2020 2:40 PM
[2020-01-16 16:15] LABS: Appearance Peritoneal Fluid HAZY; Color Peritoneal Fluid STRAW; RBC Peritoneal Fluid (A) < 3000 /uL; WBC Peritoneal Fluid (A) 485 /ul (0-300)
[2020-01-16 16:16] LABS: Basophils, Fluid 0 %; Eosinophils, Fluid 0 %; Lymphocytes, Fluid 27 %; Mono,Macrophage,Mesothelial 72 %; Neutrophils, Fluid 1 %
--- NOTE | 2020-01-16 17:17 | Urology Progress Note ---
Date of Service January 16, 2020 Assessment & Plan (1) Abnormal CT of the abdomen: dramatic progression of what appears to be bladder cancer to now widely metastatic. He remains too ill for palliative surgery or chemotherapy His prognosis is grim. He feels so much better since tap and would consider again in future for his comfort He would like to be discharged home as soon as possible Hospice planning ongoing Subjective patient feeling much more comfortable after a 5+ liter tap. Is sitting up eating dinner. He and son in agreement with home hospice. Fever and symptoms seem better on ceftriaxone as well. planning for home care ongoing. Review of Systems Review of Systems: ROS- + fever, + chills, - nausea, - emesis, + weight gain, improved abdominal distention. Physical Exam Constitutional: + ill appearing, + frail appearing and cooperative Results & Data Vital Signs (Past 12 Hours) Vital Signs Temp Pulse Pulse Resp BP BP Pulse Ox 01/16/20 15:12 36.5 C 94 H 18 135/80 97 01/16/20 15:08 36.4 C L 89 20 112/75 98 01/16/20 11:34 36.4 C L 93 H 18 148/88 H 96 01/16/20 09:39 95 H 01/16/20 07:31 36.4 C L 91 H 18 143/78 H 94
[2020-01-16] MEDS: ATORVASTATIN 40 MG TAB PO SCH (21:13)
[2020-01-16] MEDS: ACETAMINOPHEN 500 MG TAB PO PRN (23:48)
[2020-01-17] MEDS: TRAMADOL HCL 50 MG TABLET PO PRN (02:15)
[2020-01-17] MEDS ORDERED: CONSULT PHARMACY STA (07:31)
[2020-01-17] MEDS ORDERED: PIPERACILL/TAZOBAC CONSULT ACTIVE PRN (07:33)
[2020-01-17] MEDS ORDERED: PIPERACILLIN/TAZOBACTAM 3.375 GM in DEXTROSE 5% 100 ML IV SCH (07:45)
[2020-01-17] MEDS: GABAPENTIN 300 MG CAP PO SCH ×2 (08:30→14:28)
[2020-01-17] MEDS: SPIRONOLACTONE 25 MG TAB PO SCH (08:30)
[2020-01-17] MEDS: FUROSEMIDE 20 MG TAB PO SCH (08:31)
[2020-01-17] MEDS: CEROVITE ADV FORMULA TAB PO SCH (08:31)
[2020-01-17] MEDS: PANTOprazole 40 MG TAB PO SCH (08:31)
[2020-01-17] MEDS: lisinopriL 5 MG TAB PO SCH (08:31)
[2020-01-17] MEDS: INSULIN ASPART 100 UNITS/ML 3 ML PEN SC SCH ×2 (08:32→12:42)
[2020-01-17] MEDS ORDERED: IMIPENEM/CILASTATIN CONSULT ACTIVE PRN (08:44)
[2020-01-17] MEDS ORDERED: IMIPENEM/CILASTATIN SODIUM 300 MG in DEXTROSE 5% 100 ML IV SCH (09:00)
--- NOTE | 2020-01-17 12:23 | Discharge Summary ---
Date of Service January 17, 2020 Admission HPI Per Admitting Provider This is a 59-year-old male who has significant PMH of alcoholic cirrhosis, esophageal varices, CAD, T2DM, HLD, CKD stage III, GERD, bilateral nephrostomy tubes in place who presents to ED secondary to abdominal pain and fever x1 day. is at bedside. He states abdominal pain started last evening, suprapubic, nonradiating, /, come and go, described as a "sharp ache," made worse with movement, improved with rest. He has had similar symptoms in past whenever he required paracentesis due to ascites. He further elicits he had elevated temperature last evening of 101.7 and chills. He further complains of increased abdominal distention, lower extremity swelling, poor p.o. intake and weight gain. He admits baseline weight approximately 152 and when he weighed himself this morning he was 167. He did have 3-4 episodes of vomiting, yellow in nature prior to arrival. He is chronically short of breath at rest but not worse. Overall feels more weak and difficulty ambulating, using cane. He denies any hematemesis. He denies any dizziness, lightheadedness, syncope, falls, chest pain, shortness breath at rest, cough, hemoptysis, palpitations, nausea, melena, hematochezia. Of significance patient recently hospitalized 12/29/2019 to 01/03/2020 secondary to abdominal pain. He underwent a therapeutic paracentesis of 5 L. He also required 2 units PRBC during that admission secondary to anemia. He was restarted on diuretics Aldactone and Lasix. GI was on board. H&H remained stable posttransfusion. He was discharged to home on increased diuretic regimen and unfortunately presents back today with abdominal pain and fever. He was also hospitalized 07/2019 at [facility]. He was initially seen at [facility] ED and was diagnosed with acute renal failure and hyperkalemia requiring transfer [place] [facility] He underwent urgent dialysis secondary to hyperkalemia. JOSÉ was secondary to post renal obstruction from thickened bladder. He received 2 episodes of HD and underwent bilateral nephrostomy tubes placement on 08/08/19. His hospital course was complicated by acute cystitis treated with IV antibiotics as well as concern for possible bladder CA secondary to abnormal CT scan also concerning for bilateral lung nodules concerning for metastatic disease. He was to follow-up as outpatient with urology for cystoscopy. In ED patient remained hemodynamically stable and was afebrile. Lab work notable for WBC 6.2K, H&H stable at 10.2 and 32.9, platelet 133, BUN 25, creatinine 1.35, INR 1.3, T bili 1.5, AST 100, troponin WNL, lipase WNL. Urinalysis consistent with proteinuria, +3 hematuria, positive nitrites and leukoesterase concerning for infection. CT scan of abdomen pelvis performed which revealed multiple bilateral pulmonary nodules presumed to represent metastatic disease department otherwise. Further revealed cirrhotic morphology of liver, omental and peritoneal nodularity consistent with abdominal carcinomatosis, ascites, thick-walled bladder encased by large rind of soft tissue suspicious for neoplasm, aortocaval iliac and inguinal lymphadenopathy. Chest x-ray with no acute cardiopulmonary normality. Did receive IV Zosyn while in ED for concern for UTI as well as questionable SBP. He also received IV famotidine. Admission Exam Per Admitting Provider Constitutional: Thin, chronically ill-appearing male, vitals as above, NAD, sitting up in bed, dysthymic affect, conversing easily Head: Normocephalic, Atraumatic Eyes: PERRL, conjunctivae normal, anicteric sclerae ENMT: external ear and nose normal, oropharynx normal dry mucous membranes Neck: trachea midline, no thyromegaly normal visual inspection Respiratory: normal respiratory effort, lungs clear to auscultation, diminished breath sounds left lung base, no wheeze, rales, rhonchi. Normal insp/exp effort, no accessory muscle use Cardiovascular: Tachycardic rate, regular rhythm, occasional ectopy, no murmur, trace pedal edema Vessels: no JVD or carotid bruit Chest: normal inspection of chest Abdomen: Distended abdomen, caput medusa, soft, diffusely tender throughout, no rebound, no guarding, no rigidity, positive bowel sounds all 4 quadrants, Musculoskeletal: no cyanosis or clubbing, extremities motor strength 5/5 Skin: no rashes, warm and dry normal turgor Neurologic: PERRL, EOMI, accommodation nl, no face palsy, no dysarthria CN's II-XI intact bilaterally and moves all extremities Psychiatric: A+Ox3, euthymic affect Lymphatic: no cervical or axillary lymphadenopathy : +B/L nephrostomy tubes intact, no surrounding erythema, warmth Principal Diagnosis Complicated ESBL UTI Decompensated liver cirrhosis with ascites Metastatic disease, likely bladder cancer Discharge Exam Constitutional + ill appearing (chronic) and + well hydrated; no acute distress Eyes PERRL, conjunctivae normal, anicteric sclerae Respiratory normal respiratory effort, lungs clear to auscultation Cardiovascular RRR, no murmur, no edema Gastrointestinal (Abdomen) Inspection/Auscultation: + abdomen distended (Mild distention (much improved)) and normal bowel sounds; no abdominal edema Percussion/Palpation: abdomen nontender Musculoskeletal no cyanosis or clubbing, extremities motor strength 5/5 Neurologic PERRL, EOMI, accommodation nl, no face palsy, no dysarthria Psychiatric A+Ox3, euthymic affect Insight: good insight Judgement: good judgement Discharge Data Allergies Allergy/AdvReac Type Severity Reaction Status Date / Time Iodinated Contrast Media Allergy Mild rash? Verified 12/29/19 17:33 Consultations 01/15/20 13:50 ED Decision to Admit Stat 01/15/20 15:29 Consult Urology Routine 01/15/20 15:48 Consult Case Management - Discharge Planning Routine Consult Gastroenterology Routine 01/15/20 20:59 Consult Palliative Care Routine 01/17/20 07:34 Consult Infectious Diseases Routine Ordered Studies 01/15/20 10:16 CT abd pelvis IV con only Stat IMPRESSION: 1. Multiple bilateral pulmonary nodules. This should be presumed to represent metastatic disease until proven otherwise 2. Pathologic aortocaval iliac and inguinal lymphadenopathy. The findings are highly suspicious for metastatic disease 3. Cirrhotic morphology the liver 4. Omental and peritoneal nodularity, consistent with abdominal carcinomatosis 5. Ascites 6. Thick-walled bladder. The bladder is encased by a large rind of soft tissue highly suspicious for neoplasm. 7. Thick-walled rectum 8. Bilateral nephrostomy tubes 9. No evidence of bowel obstruction 01/16/20 13:00 US paracentesis abd w/image Routine Hospital Course (1) Complicated UTI (urinary tract infection): (2) Abdominal pain: (3) Fever: (4) Decompensated hepatic cirrhosis: 59-year-old male who has significant PMH of alcoholic cirrhosis, esophageal varices, CAD, T2DM, HLD, CKD stage III, GERD, bilateral nephrostomy tubes in place who presents to ED secondary to abdominal pain and fever x1 day. In ED patient remained hemodynamically stable and was afebrile. Lab work notable for WBC 6.2K, H&H stable at 10.2 and 32.9, platelet 133, BUN 25, creatinine 1.35, INR 1.3, T bili 1.5, AST 100, troponin WNL, lipase WNL. Urinalysis consistent with proteinuria, +3 hematuria, positive nitrites and leukoesterase concerning for infection. Urine culture grew ESBL E.coli and pseudomonas aeruginosa Patient had received zosyn on admission Changed to imipenem this morning CT scan of abdomen pelvis performed which revealed multiple bilateral pulmonary nodules presumed to represent metastatic disease department otherwise. Further revealed cirrhotic morphology of liver, omental and peritoneal nodularity consistent with abdominal carcinomatosis, ascites, thick-walled bladder encased by large rind of soft tissue suspicious for neoplasm, aortocaval iliac and inguinal lymphadenopathy. Chest x-ray with no acute cardiopulmonary normality. Got therapeutic paracentesis All symptoms on presentation has resolved. We discussed final results of urine cultures today which was growing ESBL E.coli and pseudomonas. After multiple conversations with him and field case manager. I understand patient does not have coverage for iv antibiotics. Patient stated he will like to be treated with oral. Discussed treatment options with pharmacist. Give fosfomycin now for ESBL E.coli and discharge on cipro po for pseudomonas. Patient agrees with plan Discharge on home hospice (5) Abnormal CT of the abdomen: CT Scan of abd highly suspicious for bladder neoplasm with omental and peritoneal nodularity consistent with abdominal carcinomatosis, multiple bilateral pulmonary nodules concerning for metastatic disease along with aortocaval iliac and inguinal lymphadenopathy concerning for metastatic disease. Was seen in the hospital by Dr Whiting, his urologist Was also evaluated by palliative care Being discharged on hospice (6) CKD (chronic kidney disease), stage III: Acute on chronic CKD 3 Baseline renal function 1 Cr is 1.35 on admission Continue holding lisinopril even on discharge. Follow up with PCP BP has been stable today (7) BPH (benign prostatic hyperplasia): With bilateral nephrostomy tubes in place Recently changed 12/24/2019 at [facility] Follows Dr. Whiting urology (8) DM type 2 (diabetes mellitus, type 2): Last A1c 6.8 12/05/2019 Can continue home regimen (9) CAD (coronary artery disease): No complaints of chest pain on statin and lisinopril as outpt (10) Hypertension: Blood pressure stable Continue Lasix, Aldactone but hold home lisinopril secondary to mild elevation in renal function (11) GERD (gastroesophageal reflux disease): Continue daily PPI History with esophageal varices secondary to cirrhosis Monitor (12) Anemia: H&H stable at 10.2 and 32.5 No signs or symptoms of bleeding Received 2 units PRBC most recent admission 12/2019 Monitor Total Time Total Time Spent Total Time Spent (In Minutes): 45 Total Time Includes: Examination of the Patient, Discharge Planning and Medication Reconciliation Discharge Plan Discharge Items Patient Disposition: Hospice - Home Reason For Visit: ABDOMINAL PAIN Discharge Diagnosis: Decompensated liver cirrhosis with ascites Complicated ESBL Urinary Tract Infection Condition on Discharge: Fair Activity: Resume your previous activity Non-emergency contact: Primary Care Provider, Oncologist and Urologist Call non-emergency contact if: you have any medication questions Follow-up/Referrals: Km Del Rosario MD [Primary Care Provider] - 01/22/20 12:45 pm Diet: Regular Addtl Attending Provider Instructions: Mr Lomax. You presented to the hospital with abdominal pain and fever. You were evaluated and found to have ESBL Urinary tract infection. CT scan also showed metastastic cancer from what appears to be a bladder cancer. You received antibiotics while in the hospital. Please continue to take the remaining antibiotics to complete therapy. You also had paracentesis for comfort. After discussions with you, your Urologist and family, you opted to be discharged on home hospice. You can discuss with your mechanical engineering draftsperson about palliative paracentesis as needed per your request. Your lisinopril was stopped for now due to mild increase in your creatinine and your blood pressure has been stable. You can follow up your primary Doctor about this. It was a pleasure taking care of you. Pending Studies at Discharge: No Stand-Alone Forms: [facility] Medications and DC Order Prescriptions: New ciprofloxacin HCl 500 mg tablet 500 mg PO BID 5 Days Qty: 10 RF: 0 Continued atorvastatin 40 mg Tablet 40 mg PO PM RF: 0 nitroglycerin 400 mcg/spray Aerosol,Girard 1 dose Sublingual UD PRN (Reason: Angina) RF: 0 gabapentin 300 mg Capsule 300 mg PO TID RF: 0 finasteride 5 mg Tablet 5 mg PO DAILY RF: 0 omega [id number] oil [Fish Oil] 1,000 mg (120 mg-180 mg) Capsule 1 cap PO BID RF: 0 Multivitamin 50 Plus Tablet 1 tab PO DAILY RF: 0 albuterol sulfate [ProAir HFA] 90 mcg/actuation Hfa Aerosol Inhaler 2 puff inhalation DAILY PRN (Reason: Shortness Of Breath) RF: 0 ondansetron HCl [Zofran] 4 mg tablet 4 mg PO Q6 PRN (Reason: Nausea) RF: 0 tramadol [Ultram] 50 mg tablet 50 mg PO Q12 PRN (Reason: Pain) RF: 0 meclizine 25 mg Tablet 25 mg PO TID PRN (Reason: dizzyness) RF: 0 glimepiride 4 mg tablet 4 mg PO QAM RF: 0 spironolactone 25 mg Tablet 50 mg PO QAM 30 Days Qty: 60 RF: 3 furosemide 20 mg Tablet 20 mg PO QAM 30 Days Qty: 30 RF: 3 esomeprazole magnesium [Nexium] 20 mg capsule,delayed release(DR/EC) 40 mg PO DAILY 30 Days Qty: 60 RF: 0 lactulose 10 gram/15 mL (15 mL) solution 30 gm PO TID PRN (Reason: constipation) Qty: 750 RF: 3 Discontinued lisinopril 5 mg tablet 5 mg PO DAILY RF: 0 Discharge Orders: Discharge Order (Routine); Ordered 01/17/20 Ordered By: Padmini Dupree Admission Data Admit Date/Time: 01/15/20 14:06 Attending Provider: Padmini Dupree I. Admit Provider: Marily Murguia Primary Care Provider: Km Del Rosario Other Providers: Marily Murguia ; Sara Israel ; Yanely Tierney ; Shruthi Whiting ; Shruthi Hyatt Other Interventions: Discharge Summary Assessment (RN) Last Done: 01/17/20 12:34 DC Date/Time DO NOT enter until pt leaves facility: 01/17/20 14:47
[2020-01-17] MEDS ORDERED: FOSFOMYCIN TROMETHAMINE 3 GM PACKET PO STA (14:02)
[2020-01-17] MEDS: ACETAMINOPHEN 500 MG TAB PO PRN (14:28)
== END 2020-01-17 14:47 | disposition hospice, home (50) | DRG 433 ==
LOC: ED 09:59 → 2W 14:06 → SUATTDRO 14:06 → 2W 15:28